=== PATIENT | female | born 1995 | race Caucasian/White ===

== ENCOUNTER → 2017-11-02 | Outpatient (CLI) | payer BC ==
[~2017-11-02] MED LIST: AMOX500T2 PO; LORA10CA PO; NAPR-1070 PO
--- NOTE | 2017-11-02 20:11 | Diagnostic Imaging Report ---
INDICATION: Palpable lump in the right breast. EXAMINATION: Right breast ultrasound. FINDINGS: Sonographic interrogation of the area of palpable abnormality in the right breast was performed. This does correspond to the 7 o'clock location. At this location there is a macrolobulated hypoechoic mass approximately 2 cm from the nipple, measuring 2.5 x 1.5 x 1.9 cm. This is circumscribed. There does appear to be mild posterior acoustic enhancement. There is a mild internal vascularity. 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 No other masses are seen. IMPRESSION: Macrolobulated hypoechoic solid mass at the 7 o'clock location of the right breast, 2 cm from the nipple, corresponding to the area of palpable abnormality. 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 A followup right breast ultrasound in six months is recommended to show continued stability. ACR BI-RADS Category 3: Probably benign findings. Result letter will be mailed to the patient. Note: At least 10% of breast cancer is not imaged by mammography. Dictated by: Dictated on workstation # [id number]
== END ==
LOC: RAD 10:23
PROVIDERS: ATTEND Family Medicine
DX: N63.13 Unspecified lump in the right breast, lower outer quadrant (principal)
CPT/HCPCS: 76641

== ENCOUNTER 2018-05-11 17:28 | Emergency (ER) | payer OTHER, BC ==
[~2018-05-11] VITALS: Ht 157.5 cm; Wt 78.0 kg
--- OUTSIDE RECORDS SUMMARY | 2018-05-11 17:34 | XMS REPORT ---
Author Author FLORESITA BONILLA Organization [facility] Address [address] [place] [address] Care Team Providers Care Drafter Automotive Design Layout Name Role Phone FLORESITA BONILLA Unavailable PROBLEMS Unknown Problems ALLERGIES No Information ENCOUNTERS Encounter Location Date Diagnosis [facility] [id number] [place] [address]016 [address]0635 Jan, [place] [id number] [place] [address] 24449- 0985 December, Weight gain R63.5 [place] [id number] [place] [address] 52245- 7912 Oct, [place] [id number] [place] [address] 48741- 1605 Oct, Lump of right breast N63.10 [place] [id number] [place] [address] 21995- 6997 Sep, [facility] [id number] [place] [address] 09999- 1144 Sep, [place] [id number] [place] [address] 64876- 3264 Sep, Well woman exam with routine gynecological exam Z01.419 ; Lump of right breast N63.10 ; Screening for STD sexually transmitted disease Z11.3 ; Vaginal discharge N89.8 ; Fluid level behind tympanic membrane of both ears H65.93 and control counseling Z30.09 [place] [id number] [place] [address] 67326- 2067 Jul, Weight gain R63.5 [place] [id number] [place] [address] 88189- 4611 Jun, Weight gain R63.5 [facility] [id number] [place] [address] 11332 -2427 Jan, [facility] [address] 399[address] Jan, Encounter for immunization Z23 and Laceration of right hand without foreign body, initial encounter S61.411A [facility] [address] [id number] Apr, Dental examination Z01.20 [facility] [address] [place] [address] 92633 -7808 08 Apr, 2016 Allergic reaction, initial encounter T78.40XA [facility] [address] 9[address]81 [address] December, Other seasonal allergic rhinitis J30.2 [facility] [address] 6[address]21 [address]1319 11 Sep, 2015 Back pain, thoracic M54.6 [place] [address] 49166[address] 8650 May, Sore throat J02.9 [facility] [address] 25114- 3989 14 Nov, 2014 [facility] [address] 47519- 9776 Nov, [facility] [id number] [place] [address] 43074- 2670 Aug, [facility] [address] 25533- 4576 Aug, [facility] [address] 14972- 4073 Oct, [facility] [address] 13918- 0022 Sep, [facility] [address] [facility] [id number] [address] Sep, [facility] [id number] [address] 0988 Jun, [facility] [address] [address] 0394 Jun, [facility] [address] [address] 8537 Jul, [facility] [address] 6[address] Jul, [facility] [address] 2256 Jul, [facility] [address] 2648 Jul, [facility] [id number] 5[address] Jul, [facility] [address], [place] [address]- 4651 Jul, [facility] [id number] [address]- 4564 Nov, [facility] [id number] [address] Aug, IMMUNIZATIONS No Known Immunizations SOCIAL HISTORY Never Assessed REASON FOR VISIT Traige PLAN OF CARE VITAL SIGNS MEDICATIONS Unknown Medications RESULTS No Results PROCEDURES No Known procedures INSTRUCTIONS MEDICATIONS ADMINISTERED No Known Medications MEDICAL (GENERAL) HISTORY Type Description Date Medical History Childhood asthma Medical History anemia Medical History back trouble Surgical History tubes in ears Hospitalization History asthma
--- OUTSIDE RECORDS SUMMARY | 2018-05-11 17:35 | XMS REPORT ---
Author MARIANA Joseph [facility] eClinicalWorks Address Unknown Phone Unavailable Care Team Providers Care Supervisor Forming Department Name Role Phone MARIANA DONOVAN CP Unavailable Allergies, Adverse Reactions, Alerts Substance Reaction Event Type N.K.D.A. Info Not Available Non Drug Allergy Problems Problem Type Condition Code Onset Dates Condition Status Problem Acute upper respiratory infections of unspecified site 465.9 Active Problem Cervicalgia 723.1 Active Problem Essential and other specified forms of tremor 333.1 Active Problem Other malaise and fatigue 780.79 Active Assessment Sore throat J02.9 Active Medications Medication Code System Code Instructions Start Date End Date Status Dosage Amoxicillin [facility] [address]-46 500 MG Orally 3 times a day Jun 23, 2015 Jun 30, 2015 1 tablet Claritin [facility] [address]-38 10 MG Orally Once a day Jun 23, 2015 1 tablet Procedures Procedure Coding System Code Date Office Visit, Est Pt., Level 3 CPT-4 98474 Jun 23, 2015 STREP A ASSAY W/OPTIC CPT-4 90535 Jun 23, 2015 Vital Signs Date/Time: Jun 23, 2015 Temperature 97.9 F BMIPercentile 94.82 % Weight 185.9 lbs Height 65 in Pain Scale 5 1-10 Blood Pressure Diastolic 74 mmHg Blood Pressure Systolic 102 mmHg Cardiac Monitoring Heart Rate 74 bpm Wt Percentile 95.82 % BMI 30.93 Index Results Name Result Date Reference Range Unit Abnormality Flag STREP A (IN HOUSE) Summary Purpose eClinicalWorks Submission
--- OUTSIDE RECORDS SUMMARY | 2018-05-11 17:35 | XMS REPORT ---
Author Author JESSICA MADISON [facility] Address [address] [place] [address] Care Team Providers Care Brass Pourer Name Role Phone JESSICA MADISON Unavailable PROBLEMS Unknown Problems ALLERGIES No Information ENCOUNTERS Encounter Location Date Diagnosis [facility] [id number] [place] [address]21 [address]0978 Jan, [place] [address] 10224- 1417 December, Weight gain R63.5 [place] [address] 18164- 7610 Oct, [place] [address] 92237- 4913 Oct, Lump of right breast N63.10 [place] [address] 23053- 8811 Sep, [place] [id number] [place] [address] 02405- 2475 Sep, [place] [id number] [place] [address] 40415- 9583 Sep, Well woman exam with routine gynecological exam Z01.419 ; Lump of right breast N63.10 ; Screening for STD sexually transmitted disease Z11.3 ; Vaginal discharge N89.8 ; Fluid level behind tympanic membrane of both ears H65.93 and control counseling Z30.09 [place] [id number] [place] [address] 81862- 5945 Jul, Weight gain R63.5 [place] [address] 83870- 6524 Jun, Weight gain R63.5 [facility] [id number] [place] [address] 91062 -2088 Jan, [facility] [address] 55955 -8883 Jan, Encounter for immunization Z23 and Laceration of right hand without foreign body, initial encounter S61.411A [facility] [address] [id number] Apr, Dental examination Z01.20 [facility] [address] [place] [address] 61386 -1121 08 Apr, 2016 Allergic reaction, initial encounter T78.40XA [facility] [address] 36133 -2330 December, Other seasonal allergic rhinitis J30.2 [facility] [address] 49043 -8753 11 Sep, 2015 Back pain, thoracic M54.6 [place] [address] 36296- 6708 May, Sore throat J02.9 [facility] [address] 35959- 0829 14 Nov, 2014 [facility] [address] 47093- 4240 Nov, [facility] [id number] [place] [address] 62026- 4940 Aug, [facility] [address] 00281- 8223 Aug, [facility] [address] 45674- 7675 Oct, [facility] [address] 45019- 4845 Sep, [place] [address], [place] [address]- 9638 Sep, [facility] [address], [place] [address]- 2040 Jun, [facility] [address] [facility] [id number] [address]- 1206 Jun, [facility] [address], [place] [address]- 8658 Jul, [facility] [address] 1640 Jul, [facility] [id number] 0992 Jul, [facility] [address], [place] [address]- 1790 Jul, [facility] [address] 6191 Jul, [facility] [address] 1412 Jul, [facility] [address], [place] [address]- 3973 Nov, [facility] [id number] 8260 Aug, IMMUNIZATIONS No Known Immunizations SOCIAL HISTORY Never Assessed REASON FOR VISIT Rx from lab results PLAN OF CARE VITAL SIGNS MEDICATIONS Medication Instructions Dosage Frequency Start Date End Date Duration Status Metronidazole 500 mg Orally Twice a day 1 tablet 12h 23 Sep, 2017 2 Oct, 2017 07 days Active RESULTS No Results PROCEDURES No Known procedures INSTRUCTIONS MEDICATIONS ADMINISTERED No Known Medications MEDICAL (GENERAL) HISTORY Type Description Date Medical History Childhood asthma Medical History anemia Medical History back trouble Surgical History tubes in ears Hospitalization History asthma
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
--- OUTSIDE RECORDS SUMMARY | 2018-05-11 17:35 | XMS REPORT ---
Author Author JESSICA MADISON [facility] Address [address] [place] [address] Care Team Providers Care Fish Processing Supervisor Name Role Phone JESSICA MADISON Unavailable PROBLEMS Unknown Problems ALLERGIES No Information ENCOUNTERS Encounter Location Date Diagnosis [facility] [id number] [place] [address] 93319 -2396 Jan, [place] [id number] [place] [address] 34676- 9508 December, Weight gain R63.5 [place] [address] 97822- 5526 Oct, [place] [address] 9[address]- 1951 Oct, Lump of right breast N63.10 [place] [address] 57614- 7225 Sep, [facility] [id number] [place] [address] 38681- 1848 Sep, [place] [id number] [place] [address] 36943- 7626 Sep, Well woman exam with routine gynecological exam Z01.419 ; Lump of right breast N63.10 ; Screening for STD sexually transmitted disease Z11.3 ; Vaginal discharge N89.8 ; Fluid level behind tympanic membrane of both ears H65.93 and control counseling Z30.09 [facility] [id number] [place] [address] 41976- 5018 Jul, Weight gain R63.5 [place] [address] 48208- 0851 Jun, Weight gain R63.5 [facility] [id number] [place] [address] 84591 -6856 Jan, [facility] [address] [address] Jan, Encounter for immunization Z23 and Laceration of right hand without foreign body, initial encounter S61.411A [facility] [address] [id number] Apr, Dental examination Z01.20 [facility] [address] [place] [address] 22052 -3870 08 Apr, 2016 Allergic reaction, initial encounter T78.40XA [facility] [address] 33154 -3663 December, Other seasonal allergic rhinitis J30.2 [facility] [address] 39383 -6010 11 Sep, 2015 Back pain, thoracic M54.6 [place] [address] 89748- 5558 May, Sore throat J02.9 [facility] [address] [address]- [address] 14 Nov, 2014 [facility] [address] 03566- 0856 Nov, [facility] [id number] [place] [address] 54574- 5814 Aug, [facility] [address] 81323- 5590 Aug, [facility] [address] 45431- 1111 Oct, [facility] [address] 13394- 6631 Sep, [place] [address] [facility] [id number] [address]- 8[address] Sep, [facility] [address] [address]- 4502 Jun, [facility] [address] [facility] [id number] [address]- 2102 Jun, [facility] [address] [address] Jul, [facility] [address] [facility] [id number] [address]- 3194 Jul, [facility] [address] 28[address] Jul, [facility] [address] 8432 Jul, [facility] [address] [address]- 8076 Jul, [facility] [address], [place] [address]- 4246 Jul, [facility] [address] [address] Nov, [facility] [address] [id number] [address]- 8574 Aug, IMMUNIZATIONS No Known Immunizations SOCIAL HISTORY Never Assessed REASON FOR VISIT PLAN OF CARE VITAL SIGNS MEDICATIONS Medication Instructions Dosage Frequency Start Date End Date Duration Status Diflucan 150 MG Orally Once a day 1 tablet 24h Oct, 1 dose Active RESULTS No Results PROCEDURES No Known procedures INSTRUCTIONS MEDICATIONS ADMINISTERED No Known Medications MEDICAL (GENERAL) HISTORY Type Description Date Medical History Childhood asthma Medical History anemia Medical History back trouble Surgical History tubes in ears Hospitalization History asthma
--- OUTSIDE RECORDS SUMMARY | 2018-05-11 17:35 | XMS REPORT ---
Author MIMI Cheatham [facility] eClinicalWorks Address Unknown Phone Unavailable Care Team Providers Care Hydro Generation Supervisor Name Role Phone MIMI RICKS CP Unavailable Allergies, Adverse Reactions, Alerts Substance Reaction Event Type N.K.D.A. Info Not Available Non Drug Allergy Problems Problem Type Condition Code Onset Dates Condition Status Problem Acute upper respiratory infections of unspecified site 465.9 Active Problem Cervicalgia 723.1 Active Problem Essential and other specified forms of tremor 333.1 Active Problem Other malaise and fatigue 780.79 Active Assessment Back pain, thoracic M54.6 Active Medications Medication Code System Code Instructions Start Date End Date Status Dosage Cyclobenzaprine HCl [facility] [address]-57 10 MG Orally Three times a day prn back pain Oct 08, 2015 1/2-1 tablet Procedures Procedure Coding System Code Date Office Visit, Est Pt., Level 3 CPT-4 05481 Oct 08, 2015 Vital Signs Date/Time: Oct 08, 2015 Temperature 98.1 F Weight 194.6 lbs Height 65 in BMI 32.38 Index Blood Pressure Diastolic 74 mmHg Blood Pressure Systolic 124 mmHg Cardiac Monitoring Heart Rate 60 bpm BMIPercentile 95.81 % Wt Percentile 96.88 % Results No Known Results Summary Purpose eClinicalWorks Submission
--- OUTSIDE RECORDS SUMMARY | 2018-05-11 17:35 | XMS REPORT ---
Author Author FLORESITA BONILLA Organization [facility] Address [address] [place] [address] Care Team Providers Care Insurance Claims Supervisor Name Role Phone FLORESITA BONILLA Unavailable PROBLEMS Unknown Problems ALLERGIES No Known Allergies ENCOUNTERS Encounter Location Date Diagnosis [facility] [id number] [place] [address]60 -0912 Jan, [place] [id number] [place] [address] 55282- 5929 December, Weight gain R63.5 [place] [address] 11028- 9491 Oct, [facility] [id number] [place] [address] 66208- 4113 Oct, Lump of right breast N63.10 [place] [id number] [place] [address] 21403- 2309 Sep, [facility] [id number] [place] [address] 42346- 6248 Sep, [facility] [id number] [place] [address] 30666- 5560 Sep, Well woman exam with routine gynecological exam Z01.419 ; Lump of right breast N63.10 ; Screening for STD sexually transmitted disease Z11.3 ; Vaginal discharge N89.8 ; Fluid level behind tympanic membrane of both ears H65.93 and control counseling Z30.09 [facility] [id number] [place] [address] 71208- 8911 Jul, Weight gain R63.5 [place] [id number] [place] [address] 93869- 3555 Jun, Weight gain R63.5 [facility] [id number] [place] [address] 11410 -5710 Jan, [facility] [id number] [place] [address] 89668 -6988 Jan, Encounter for immunization Z23 and Laceration of right hand without foreign body, initial encounter S61.411A [facility] [address] [id number] Apr, Dental examination Z01.20 [facility] [address] [place] [address] 31732 -9502 08 Apr, 2016 Allergic reaction, initial encounter T78.40XA [facility] [id number] [place] [address] 70193 -1343 December, Other seasonal allergic rhinitis J30.2 [facility] [address] 0[address]2377 11 Sep, 2015 Back pain, thoracic M54.6 [place] [address] 28326- 5588 May, Sore throat J02.9 [facility] [id number] [place] [address] 52779- 0095 14 Nov, 2014 [facility] [id number] [place] [address] 51194- 6645 Nov, [facility] [id number] [place] [address] 63693- 0740 Aug, [facility] [address] 20350- 2371 Aug, [facility] [id number] [place] [address] 99731- 2195 Oct, [facility] [address] 55523- 8017 Sep, [facility] [id number], [place] [address]- 6948 Sep, [facility] [id number] 6056 Jun, [facility] [address] 4[address] Jun, [facility] [address], [place] [address]- 1053 Jul, [facility] [address] 2815 Jul, [facility] [address], [place] [address]- 3259 Jul, [facility] [address], [place] [address]- 5617 Jul, [facility] [address], [place] [address]- 7965 Jul, [facility] [address], [place] [address]- 8520 Jul, [facility] [id number], [place] [address]- 6026 Nov, [facility] [id number], [place] [address]- 5831 Aug, IMMUNIZATIONS No Known Immunizations SOCIAL HISTORY Never Assessed REASON FOR VISIT Weight management -[place] PLAN OF CARE Activity Details Follow Up 6 Months Reason:weight mgmt VITAL SIGNS Height 65 in 2018-01-03 Weight 163 lbs 2018-01-03 Temperature 97.5 degrees Fahrenheit 2018-01-03 Heart Rate 76 bpm 2018-01-03 Respiratory Rate 18 2018-01-03 BMI 27.12 kg/m2 2018-01-03 Blood pressure systolic 112 mmHg 2018-01-03 Blood pressure diastolic 76 mmHg 2018-01-03 MEDICATIONS Medication Instructions Dosage Frequency Start Date End Date Duration Status Contrave 8-90 MG Orally Twice a day 2 tablets 12h Active Ibuprofen 200 mg take 2 tablets by Oral route 2 times per day with food Aug, Not-Taking Ortho Tri-Cyclen (28) 0.18/0.215/0.25 MG-35 MCG Orally Once a day 1 tablet 24h Sep, 28 day(s) Active Diflucan 150 MG Orally Once a day 1 tablet 24h Oct, 1 dose Not -Taking RESULTS No Results PROCEDURES No Known procedures INSTRUCTIONS MEDICATIONS ADMINISTERED No Known Medications MEDICAL (GENERAL) HISTORY Type Description Date Medical History Childhood asthma Medical History anemia Medical History back trouble Surgical History tubes in ears Hospitalization History asthma
--- OUTSIDE RECORDS SUMMARY | 2018-05-11 17:35 | XMS REPORT ---
Author EVE Chan [facility] eClinicalWorks Address Unknown Phone Unavailable Care Team Providers Care Petroleum Sampler Name Role Phone EVE LYONS CP Unavailable Allergies, Adverse Reactions, Alerts Substance Reaction Event Type N.K.D.A. Info Not Available Non Drug Allergy Problems Problem Type Condition Code Onset Dates Condition Status Problem Acute upper respiratory infections of unspecified site 465.9 Active Problem Cervicalgia 723.1 Active Problem Essential and other specified forms of tremor 333.1 Active Problem Other malaise and fatigue 780.79 Active Assessment Dental examination Z01.20 Active Medications No Known Medications Procedures Procedure Coding System Code Date BITEWINGS - FOUR FILMS CPT-4 D0274 May 26, 2016 PANORAMIC FILM SEE ALSO CODE 92855 CPT-4 D0330 May 26, 2016 COMP ORAL EVALUATION - NEW/EST PT CPT-4 D0150 May 26, 2016 Vital Signs Date/Time: May 26, 2016 Blood Pressure Diastolic 82 mmHg Blood Pressure Systolic 137 mmHg Height 65 in Results No Known Results Summary Purpose eClinicalWorks Submission
--- OUTSIDE RECORDS SUMMARY | 2018-05-11 17:35 | XMS REPORT ---
Author Author FLORESITA BONILLA Organization [facility] Address [address] [place] [address] Care Team Providers Care Hand Folder Name Role Phone FLORESITA BONILLA Unavailable PROBLEMS Unknown Problems ALLERGIES No Information ENCOUNTERS Encounter Location Date Diagnosis [facility] [id number] [place] [address] 05024 -8117 Jan, [place] [id number] [place] [address] 24300- 0825 December, Weight gain R63.5 [place] [id number] [place] [address] 56541- 0787 Oct, [place] [id number] [place] [address] 17517- 2860 Oct, Lump of right breast N63.10 [place] [id number] [place] [address] 38927- 3674 Sep, [facility] [id number] [place] [address] 65628- 6426 Sep, [place] [id number] [place] [address] 61883- 1102 Sep, Well woman exam with routine gynecological exam Z01.419 ; Lump of right breast N63.10 ; Screening for STD sexually transmitted disease Z11.3 ; Vaginal discharge N89.8 ; Fluid level behind tympanic membrane of both ears H65.93 and control counseling Z30.09 [place] [id number] [place] [address] 84070- 6697 Jul, Weight gain R63.5 [place] [id number] [place] [address] 16280- 0087 Jun, Weight gain R63.[address] [facility] [id number] [place] [address] 09051 -6240 Jan, [facility] [address] 53369 -3851 Jan, Encounter for immunization Z23 and Laceration of right hand without foreign body, initial encounter S61.411A [facility] [address] [id number] Apr, Dental examination Z01.20 [facility] [address] [place] [address] 70550 -2384 08 Apr, 2016 Allergic reaction, initial encounter T78.40XA [facility] [address] 31989 -8155 December, Other seasonal allergic rhinitis J30.2 [facility] [address] 43894 -8050 11 Sep, 2015 Back pain, thoracic M54.6 [place] [address] 15031- 4203 May, Sore throat J02.9 [facility] [address] 20892- 0259 14 Nov, 2014 [facility] [address] 95158- 2269 Nov, [facility] [id number] [place] [address] 08417- 3531 Aug, [facility] [address] 26000- 4560 Aug, [facility] [address] 91621- 0171 Oct, [facility] [address] 25066- 5680 Sep, [facility] [address] [facility] [id number] [address] 1191 Sep, [facility] [address], [place] [address]- 4768 Jun, [facility] [address] [facility] [id number], [place] [address]- 8[address] Jun, [facility] [address] [address]- 0084 Jul, [facility] [address]- 8198 Jul, [facility] [address] 1714 Jul, [facility] [address] 7943 Jul, [facility] [address] 9409 Jul, [facility] [address], [place] [address]- 0905 Jul, [facility] [id number], [place] [address]- 6037 Nov, [facility] [id number] 6097 Aug, IMMUNIZATIONS No Known Immunizations SOCIAL HISTORY Never Assessed REASON FOR VISIT Refill request PLAN OF CARE VITAL SIGNS MEDICATIONS Unknown Medications RESULTS No Results PROCEDURES No Known procedures INSTRUCTIONS MEDICATIONS ADMINISTERED No Known Medications MEDICAL (GENERAL) HISTORY Type Description Date Medical History Childhood asthma Medical History anemia Medical History back trouble Surgical History tubes in ears Hospitalization History asthma
--- OUTSIDE RECORDS SUMMARY | 2018-05-11 17:35 | XMS REPORT ---
Author Author JESSICA MADISON [facility] Address [address] [place] [address] Care Team Providers Care Fuel Cell Systems Engineer Name Role Phone JESSICA MADISON Unavailable PROBLEMS Unknown Problems ALLERGIES No Information ENCOUNTERS Encounter Location Date Diagnosis [facility] [id number] [place] [address] 05177 -3532 Jan, [place] [address] 14785- 8754 December, Weight gain R63.5 [place] [address] 68510- 1788 Oct, [place] [address] 11789- 1845 Oct, Lump of right breast N63.10 [place] [address] 33414- 8463 Sep, [place] [id number] [place] [address] 05722- 6881 Sep, [place] [id number] [place] [address] 19665- 4530 Sep, Well woman exam with routine gynecological exam Z01.419 ; Lump of right breast N63.10 ; Screening for STD sexually transmitted disease Z11.3 ; Vaginal discharge N89.8 ; Fluid level behind tympanic membrane of both ears H65.93 and control counseling Z30.09 [place] [id number] [place] [address] 97520- 4143 Jul, Weight gain R63.5 [place] [address] 53038- 5837 Jun, Weight gain R63.5 [facility] [id number] [place] [address] 08343 -1895 Jan, [facility] [address] 01673 -3996 Jan, Encounter for immunization Z23 and Laceration of right hand without foreign body, initial encounter S61.411A [facility] [address] [id number] Apr, Dental examination Z01.20 [facility] [address] [place] [address] 73538 -0690 08 Apr, 2016 Allergic reaction, initial encounter T78.40XA [facility] [address] 13473 -1260 December, Other seasonal allergic rhinitis J30.2 [facility] [place] [address] 78729 -9488 11 Sep, 2015 Back pain, thoracic M54.6 [place] [address] 42969- 4437 May, Sore throat J02.9 [facility] [address] 21145- 1409 14 Nov, 2014 [facility] [address] 87412- 7111 Nov, [facility] [id number] [place] [address] 60892- 5524 Aug, [facility] [address] 10317- 9830 Aug, [facility] [address] 36374- 3759 Oct, [facility] [address] 43573- 6680 Sep, [place] [address], [place] [address]- 7784 Sep, [facility] [address]- 1857 Jun, [facility] [address], [place] [address]- 2547 Jun, [facility] [address], [place] [address]- 4900 Jul, [facility] [address], [place] [address]- 4642 Jul, [facility] [address], [place] [address]- 8448 Jul, [facility] [address]- 3421 Jul, [facility] [address], [place] [address]- 2745 Jul, [facility] [address], [place] [address]- 0222 Jul, [facility] [address], [place] [address]- 4460 Nov, [facility] [id number], [place] [address]- 9083 Aug, IMMUNIZATIONS No Known Immunizations SOCIAL HISTORY Never Assessed REASON FOR VISIT [facility] PLAN OF CARE VITAL SIGNS MEDICATIONS Unknown Medications RESULTS No Results PROCEDURES No Known procedures INSTRUCTIONS MEDICATIONS ADMINISTERED No Known Medications MEDICAL (GENERAL) HISTORY Type Description Date Medical History Childhood asthma Medical History anemia Medical History back trouble Surgical History tubes in ears Hospitalization History asthma
--- OUTSIDE RECORDS SUMMARY | 2018-05-11 17:35 | XMS REPORT ---
Author Author CHUCKY JAIMES Organization [facility] WALK IN [facility] Address [address] [place] [address] Care Team Providers Care Spring Fitter Helper Name Role Phone CHUCKY JAIMES Unavailable PROBLEMS Type Condition ICD9-CM Code BBB54-FV Code Onset Dates Condition Status SNOMED Code Problem Essential and other specified forms of tremor 333.1 Active 323202919 Problem Acute upper respiratory infections of unspecified site 465.9 Active 50418745 Assessment Allergic reaction, initial encounter T78.40XA Apr, Active 458824194 Problem Cervicalgia 723.1 Active 23130293 Problem Other malaise and fatigue 780.79 Active 504981805 ALLERGIES Substance Reaction Event Type Date Status N.K.D.A. Unknown Non Drug Allergy Apr, Unknown SOCIAL HISTORY No smoking Hx information available PLAN OF CARE VITAL SIGNS Height 65 in 2016-05-05 Weight 182.2 lbs 2016-05-05 Heart Rate 64 bpm 2016-05-05 Respiratory Rate 20 2016-05-05 BMI 30.32 kg/m2 2016-05-05 Blood pressure systolic 114 mmHg 2016-05-05 Blood pressure diastolic 74 mmHg 2016-05-05 MEDICATIONS No Known Medications RESULTS No Results PROCEDURES Procedure Date Ordered Related Diagnosis Body Site Office Visit, Est Pt., Level 3 May 05, 2016 SOLUMEDROL (UP TO 125 MG) May 05, 2016 THER/PROPH/DIAG INJ, SC/IM May 05, 2016 IMMUNIZATIONS Vaccine Route Administration Date Status SOLUMEDROL (UP TO 125 MG) IM Intramuscular May 05, 2016 Administered
--- OUTSIDE RECORDS SUMMARY | 2018-05-11 17:35 | XMS REPORT ---
Author Author JESSICA MADISON [facility] Address [address] [place] [address] Care Team Providers Care Plastics Design Engineer Name Role Phone JESSICA MADISON Unavailable PROBLEMS Unknown Problems ALLERGIES No Known Allergies ENCOUNTERS Encounter Location Date Diagnosis [facility] [id number] [place] [address] 30949 -0929 Jan, [place] [id number] [place] [address] 62527- 4125 December, Weight gain R63.5 [place] [address] 70273- 0748 Oct, [place] [id number] [place] [address] 39786- 8744 Oct, Lump of right breast N63.10 [place] [id number] [place] [address] 06032- 8925 Sep, [facility] [id number] [place] [address] 30126- 5948 Sep, [place] [address] [place] [address] 60457- 2346 Sep, Well woman exam with routine gynecological exam Z01.419 ; Lump of right breast N63.10 ; Screening for STD sexually transmitted disease Z11.3 ; Vaginal discharge N89.8 ; Fluid level behind tympanic membrane of both ears H65.93 and control counseling Z30.09 [place] [id number] [place] [address] 48946- 1341 Jul, Weight gain R63.5 [place] [id number] [place] [address] 04844- 9374 Jun, Weight gain R63.5 [facility] [id number] [place] [address] 25603 -0797 Jan, [facility] [address] 01264 -0446 Jan, Encounter for immunization Z23 and Laceration of right hand without foreign body, initial encounter S61.411A [facility] [address] [id number] Apr, Dental examination Z01.20 [facility] [address] [place] [address] 35182 -1848 08 Apr, 2016 Allergic reaction, initial encounter T78.40XA [facility] [address] 10827 -0412 December, Other seasonal allergic rhinitis J30.2 [facility] [address] 18898 -2427 11 Sep, 2015 Back pain, thoracic M54.6 [place] [address] 72181- 0361 May, Sore throat J02.9 [facility] [address] 62[address]- 1336 14 Nov, 2014 [facility] [address] 97459- 7885 Nov, [facility] [address] 45697- 3655 Aug, [facility] [address] 55570- 8474 Aug, [facility] [address] 42025- 4922 Oct, [facility] [address] 42665- 6740 Sep, [facility] [address], [place] [address]- 9555 Sep, [facility] [address], [place] [address]- 8435 Jun, [facility] [address] 1523 Jun, [facility] [address] [id number] [address]- 2154 Jul, [facility] [address], [place] [address]- 4885 Jul, [facility] [address], [place] [address]- 4795 Jul, [facility] [address], [place] [address]- 2096 Jul, [facility] [address], [place] [address]- 5352 Jul, [facility] [address], [place] [address]- 8225 Jul, [facility] [address], [place] [address]- 6836 Nov, [facility] [address], [place] [address]- 0978 Aug, IMMUNIZATIONS No Known Immunizations SOCIAL HISTORY Never Assessed REASON FOR VISIT Annual physical (female) -- elias burkett, patient states she would like to start BC today (pills) PLAN OF CARE Activity Details Follow Up 1 Year Reason:Well woman Pending Test PAP REFLEX TO HPV IF ASCUS VITAL SIGNS Height 65 in 2017-10-20 Weight 169.0 lbs 2017-10-20 Temperature 98.0 degrees Fahrenheit 2017-10-20 Heart Rate 70 bpm 2017-10-20 Respiratory Rate 18 2017-10-20 BMI 28.12 kg/m2 2017-10-20 Blood pressure systolic 110 mmHg 2017-10-20 Blood pressure diastolic 68 mmHg 2017-10-20 MEDICATIONS Medication Instructions Dosage Frequency Start Date End Date Duration Status Ibuprofen 200 mg take 2 tablets by Oral route 2 times per day with food Aug, Not-Taking Ortho Tri-Cyclen (28) 0.18/0.215/0.25 MG-35 MCG Orally Once a day 1 tablet 24h 23 Sep, 2017 28 day(s) Active Contrave 8-90 MG Orally Twice a day 2 tablets 12h Nov, 30 days Active RESULTS No Results PROCEDURES Procedure Date Ordered Result Body Site No Charge Oct 20, 2017 TRICHOMONAS ASSAY W/OPTIC Oct 20, 2017 URINE TEST Oct 20, 2017 VENIPUNCT, ROUTINE* Oct 20, 2017 Bacterial Vaginosis In House Oct 20, 2017 CULTURE, BACTERIA, OTHER Oct 20, 2017 SPECIMEN HANDLING Oct 20, 2017 INSTRUCTIONS MEDICATIONS ADMINISTERED No Known Medications MEDICAL (GENERAL) HISTORY Type Description Date Medical History Childhood asthma Medical History anemia Medical History back trouble Surgical History tubes in ears Hospitalization History asthma
--- OUTSIDE RECORDS SUMMARY | 2018-05-11 17:36 | XMS REPORT ---
Author Author FLORESITA BONILLA Organization [facility] Address [address] [place] [address] Care Team Providers Care Tv Technician Name Role Phone FLORESITA BONILLA Unavailable PROBLEMS Unknown Problems ALLERGIES No Known Allergies ENCOUNTERS Encounter Location Date Diagnosis [place] [id number] [place] [address]191[address] 9263 December, Weight gain R63.5 [place] [id number] [place] [address] 23238- 2221 Oct, [place] [address] [address]90 Oct, Lump of right breast N63.10 [place] [id number] [place] [address] 76296- 1867 Sep, [place] [address] [place] [address] 22238- 2386 Sep, [place] [id number] [place] [address] 82127- 9636 Sep, Well woman exam with routine gynecological exam Z01.419 ; Lump of right breast N63.10 ; Screening for STD sexually transmitted disease Z11.3 ; Vaginal discharge N89.8 ; Fluid level behind tympanic membrane of both ears H65.93 and control counseling Z30.09 [place] [id number] [place] [address] 53564- 5639 Jul, Weight gain R63.5 [place] [id number] [place] [address] 02341- 8724 15 Jun, 2017 Weight gain R63.5 [facility] [address] [place] [address] Jan, [facility] [id number] [place] [address]36 [address]3984 Jan, Encounter for immunization Z23 and Laceration of right hand without foreign body, initial encounter S61.411A [facility] [address] [id number] 29 Apr, 2016 Dental examination Z01.20 [facility] [address] [address] 08 Apr, 2016 Allergic reaction, initial encounter T78.40XA [facility] [address] [address] December, Other seasonal allergic rhinitis J30.2 [facility] [address] [address] 11 Sep, 2015 Back pain, thoracic M54.6 [facility] [address] 532[address]- [address] May, Sore throat J02.9 [facility] [address] 37868- 0312 Nov, [facility] [id number] [place] [address] 81430- 9484 Nov, [facility] [id number] [place] [address] 79456- 1075 Aug, [facility] [id number] [place] [address] 31340- 1733 Aug, [facility] [address] 75094- 5927 Oct, [facility] [id number] [place] [address] 79550- 4531 Sep, [facility] [address] 44608- 3781 Sep, [facility] [id number] [address] Jun, [facility] [id number] Jun, [facility] [id number] Jul, [facility] [address] Jul, [facility] [address] [address] Jul, [facility] [address] 9[address] Jul, [facility] [address] 6036 Jul, [facility] [address] 8[address] Jul, [facility] [address] [place] [address] 79[address] Nov, [facility] [id number] Aug, IMMUNIZATIONS No Known Immunizations SOCIAL HISTORY Never Assessed REASON FOR VISIT Weight management----Breanne PLAN OF CARE Activity Details Follow Up 3 Months Reason:weight mgmt VITAL SIGNS Height 65 in 2017-08-14 Weight 176 lbs 2017-08-14 Temperature 97.8 degrees Fahrenheit 2017-08-14 Heart Rate 60 bpm 2017-08-14 Respiratory Rate 20 2017-08-14 BMI 29.28 kg/m2 2017-08-14 Blood pressure systolic 120 mmHg 2017-08-14 Blood pressure diastolic 70 mmHg 2017-08-14 MEDICATIONS Medication Instructions Dosage Frequency Start Date End Date Duration Status Ibuprofen 200 mg take 2 tablets by Oral route 2 times per day with food Aug, Not-Taking Contrave 8-90 MG Orally Twice a day 2 tablets 12h Nov, 30 days Active RESULTS No Results PROCEDURES No Known procedures INSTRUCTIONS MEDICATIONS ADMINISTERED No Known Medications MEDICAL (GENERAL) HISTORY Type Description Date Medical History Childhood asthma Medical History anemia Medical History back trouble Surgical History tubes in ears Hospitalization History asthma
--- OUTSIDE RECORDS SUMMARY | 2018-05-11 17:36 | XMS REPORT ---
Author Author FLORESITA BONILLA Organization [facility] Address [address] [place] [address] Care Team Providers Care Roustabout Crew Leader Name Role Phone FLORESITA BONILLA Unavailable PROBLEMS Unknown Problems ALLERGIES No Known Allergies ENCOUNTERS Encounter Location Date Diagnosis [place] [id number] [place] [address] 62661- 8866 December, Weight gain R63.5 [place] [id number] [place] [address] 48151- 3016 Oct, [place] [address] 59829- 7212 Oct, Lump of right breast N63.10 [place] [id number] [place] [address] 83969- 8084 Sep, [place] [id number] [place] [address] 58369- 0573 Sep, [place] [id number] [place] [address] 15392- 4018 Sep, Well woman exam with routine gynecological exam Z01.419 ; Lump of right breast N63.10 ; Screening for STD sexually transmitted disease Z11.3 ; Vaginal discharge N89.8 ; Fluid level behind tympanic membrane of both ears H65.93 and control counseling Z30.09 [place] [id number] [place] [address] 68702- 2030 Jul, Weight gain R63.5 [place] [id number] [place] [address] 17988- 1532 15 Jun, 2017 Weight gain R63.5 [facility] [address] [place] [address] Jan, [facility] [id number] [place] [address] 23176 -3592 Jan, Encounter for immunization Z23 and Laceration of right hand without foreign body, initial encounter S61.411A [facility] [address] [id number] 29 Apr, 2016 Dental examination Z01.20 [facility] [address] 280[address] 08 Apr, 2016 Allergic reaction, initial encounter T78.40XA [facility] [address] [address] December, Other seasonal allergic rhinitis J30.2 [facility] [address] 632[address] 11 Sep, 2015 Back pain, thoracic M54.6 [facility] [address] 36234- 9790 May, Sore throat J02.9 [facility] [address] 13984- 5190 Nov, [facility] [id number] [place] [address] 25288- 2752 Nov, [facility] [id number] [place] [address] 73317- 7215 Aug, [facility] [id number] [place] [address] 06137- 5170 Aug, [facility] [address] 39300- 9921 Oct, [facility] [id number] [place] [address] 06772- 5865 Sep, [facility] [address] 22531- 2828 Sep, [facility] [id number], [place] [address]- 1326 Jun, [facility] [address], [place] [address]- 3[address] Jun, [facility] [address], [place] [address]- 6701 Jul, [facility] [address], [place] [address]- 2007 Jul, [facility] [address], [place] [address]- 8117 Jul, [facility] [address], [place] [address]- 5899 Jul, [facility] [address] [place] [address] 40062- 2456 Jul, [facility] [address] [place] [address] 69360- 3410 Jul, [facility] [address], [place] [address]- [address] Nov, [facility] [id number], [place] [address] Aug, IMMUNIZATIONS No Known Immunizations SOCIAL HISTORY Never Assessed REASON FOR VISIT Weight management, PT says she was 143 all through high school then got on the depo shot and goained all this. PT has stopped the depo and still has not lost any weight along with changing her diet-Tata COLE PLAN OF CARE Activity Details Follow Up 4 Weeks Reason:wt mgmt VITAL SIGNS Height 65 in 2017-07-12 Weight 186.5 lbs 2017-07-12 Temperature 98.4 degrees Fahrenheit 2017-07-12 Heart Rate 62 bpm 2017-07-12 Respiratory Rate 18 2017-07-12 BMI 31.03 kg/m2 2017-07-12 Blood pressure systolic 108 mmHg 2017-07-12 Blood pressure diastolic 70 mmHg 2017-07-12 MEDICATIONS Medication Instructions Dosage Frequency Start Date End Date Duration Status Contrave 8-90 MG Orally Twice a day 1 tablet at hs X 7 days, 1 tab bid X 7 days, 1 in AM and 2 in PM X 7 days, 2 bid 12h 30 day(s) Active Ibuprofen 200 mg take 2 tablets by Oral route 2 times per day with food Aug, Not-Taking RESULTS No Results PROCEDURES No Known procedures INSTRUCTIONS MEDICATIONS ADMINISTERED No Known Medications MEDICAL (GENERAL) HISTORY Type Description Date Medical History Childhood asthma Medical History anemia Medical History back trouble Surgical History tubes in ears Hospitalization History asthma
--- OUTSIDE RECORDS SUMMARY | 2018-05-11 17:36 | XMS REPORT ---
Author Author FLORESITA BONILLA Organization [facility] Address [address] [place] [address] Care Team Providers Care Firer Portable Boiler Name Role Phone FLORESITA BONILLA Unavailable PROBLEMS Unknown Problems ALLERGIES No Information ENCOUNTERS Encounter Location Date Diagnosis [place] [id number] [place] [address] 40335- 6936 December, [place] [id number] [place] [address] 51880- 3732 Oct, [place] [id number] [place] [address] 52596- 3001 Oct, Lump of right breast N63.10 [place] [id number] [place] [address] 49032- 8448 Sep, [place] [id number] [place] [address] 14192- 9098 Sep, [place] [id number] [place] [address] 06073- 0264 Sep, Well woman exam with routine gynecological exam Z01.419 ; Lump of right breast N63.10 ; Screening for STD (sexually transmitted disease) Z11.3 ; Vaginal discharge N89.8 ; Fluid level behind tympanic membrane of both ears H65.93 and control counseling Z30.09 [place] [id number] [place] [address] 54117- 8967 Jul, Weight gain R63.5 [place] [id number] [place] [address] 52640- 0667 15 Jun, 2017 Weight gain R63.5 [facility] [id number] [place] [address] 54855 -6350 Jan, [facility] [address] [place] [address] 93122 -6257 Jan, Encounter for immunization Z23 and Laceration of right hand without foreign body, initial encounter S61.411A [facility] [address] [place] [id number] 29 Apr, 2016 Dental examination Z01.20 [facility] [address] [address] 08 Apr, 2016 Allergic reaction, initial encounter T78.40XA [facility] [address] [address] December, Other seasonal allergic rhinitis J30.2 [facility] [address] 41598 [address] 11 Sep, 2015 Back pain, thoracic M54.6 [facility] [id number] [place] [address] 63347- 5469 May, Sore throat J02.9 [facility] [address] 73434- 1177 Nov, [facility] [address] [id number] [place] [address] 36237- 4875 Nov, [facility] [id number] [place] [address] 13510- 7162 Aug, [facility] [id number] [place] [address] 63976- 3674 Aug, [facility] [address] 10799- 0434 Oct, [facility] [address] 64128- 7751 Sep, [facility] [id number] [place] [address] 28966- 7847 Sep, [facility] [id number], [place] [address]- 1806 Jun, [facility] [id number] 8769 Jun, [facility] [address], [place] [address]- 2746 Jul, [facility] [address] 9[address] Jul, [facility] [address], [place] [address]- 5190 Jul, [facility] [place] [address] [address] Jul, [facility] [place] [address], [place] [address]- 0997 Jul, [facility] [place] [address], [place] [address]- 7630 Jul, [facility] [place] [id number], [place] [address]- 0123 Nov, [facility] [id number], [place] [address]- 4060 Aug, IMMUNIZATIONS No Known Immunizations SOCIAL HISTORY Never Assessed REASON FOR VISIT Suture removal JStrasserRN PLAN OF CARE VITAL SIGNS MEDICATIONS Unknown Medications RESULTS No Results PROCEDURES No Known procedures INSTRUCTIONS MEDICATIONS ADMINISTERED No Known Medications MEDICAL (GENERAL) HISTORY Type Description Date Medical History Childhood asthma Medical History anemia Medical History back trouble Surgical History tubes in ears Hospitalization History asthma
--- OUTSIDE RECORDS SUMMARY | 2018-05-11 17:37 | XMS REPORT | Continuity of Care Document ---
Author Author [facility] Address Unknown Phone Unavailable Allergies Active Description Code Type Severity Reaction Onset Reported/Identified Relationship to Patient Clinical Status Yes No Known Drug Allergies [id number] Drug Allergy Unknown N/A 05/06/2016 Medications There is no data. Problems Date Dx Coded Attending Type Code Diagnosis Diagnosed By 05/21/2010 FLORESITA BONILLA APRN 462 PHARYNGITIS ACUTE 05/21/2010 DOV BALDERAS MD 462 PHARYNGITIS ACUTE 05/21/2010 DOV BALDERAS MD 462 PHARYNGITIS ACUTE BACTERIAL 12/17/2011 FLORESITA BONILLA APRN 465.9 UPPER RESPIRATORY INFECTION 12/17/2011 DOV BALDERAS MD 465.9 UPPER RESPIRATORY INFECTION 12/17/2011 DOV BALDERAS MD 465.9 UPPER RESPIRATORY INFECTION 08/07/2012 FLORESITA BONILLA APRN 333.1 TREMOR, BENIGN ESSENTIAL 08/07/2012 DOV BALDERAS MD 333.1 TREMOR, BENIGN ESSENTIAL 08/07/2012 DOV BALDERAS MD 333.1 TREMOR, BENIGN ESSENTIAL 10/25/2013 DVO BALDERAS MD 780.79 FATIGUE 05/06/2016 EDY JAMES MD Ot K08.9 DISORDER OF TEETH AND SUPPORTING STRUCTU 05/09/2016 EDY JAMES MD Ot K08.9 DISORDER OF TEETH AND SUPPORTING STRUCTU 11/15/2017 JESSICA MADISON MD Ot N63.13 UNSPECIFIED LUMP IN THE RIGHT BREAST, LO 12/26/2017 JESSICA MADISON MD Ot N63.13 UNSPECIFIED LUMP IN THE RIGHT BREAST, LO 02/06/2018 JESSICA MADISON MD Ot N63.13 UNSPECIFIED LUMP IN THE RIGHT BREAST, LO 05/10/2018 JESSCIA MADISON MD Ot N63.13 UNSPECIFIED LUMP IN THE RIGHT BREAST, LO 05/11/2018 GRICELDA MESSER, JESSICA Bar Ot N63.13 UNSPECIFIED LUMP IN THE RIGHT BREAST, LO Procedures Code [place] [address] ROUTINE VENIPUNCTURE 08/10/2012 88172 A1C (IN-HOUSE) 08/10/2012 82137 CBC 08/10/2012 54352 INSULIN LEVEL 08/11/2012 95983 STREP A (IN-HOUSE) 07/05/2013 41119 MONO TEST (IN-HOUSE) 10/25/2013 18816 TSH 10/25/2013 52159 CBC 10/25/2013 00695 CMP 10/25/2013 Results Test Result Range Drug Screen + ETOH - 08/01/16 11:23 Neurology Teacher Nhi Millsdannielle Donor ID By Employer Representitive Ethanol, Urine <10.00 mg/dL 20.00-80.00 Location [facility] Reason For Test Random Temperature In Range YES Deg F 90.00-100.00 Urine Amphetamines NEGATIVE Urine Barbiturates NEGATIVE Urine Benzodiazepines NEGATIVE Urine Cocaine NEGATIVE Urine MDMA NEGATIVE Urine Methadone NEGATIVE Urine Methamphetamines NEGATIVE Urine Opiates NEGATIVE Urine Oxycodone NEGATIVE Urine PCP NEGATIVE Urine THC Metabolite NEGATIVE CULTURE, GENITAL - 10/20/17 11:57 CULTURE, GENITAL SEE NOTE NRG SUREPATH PAP RFX HPV mRNA E6/E7 - 10/20/17 11:57 CLINICAL INFORMATION: NRG LMP: [id number] NRG PREV. PAP: NL NRG PREV. BX: NONE NRG SOURCE: Cervix NRG STATEMENT OF ADEQUACY: NRG INTERPRETATION/RESULT: NRG PROPERTIES SUPERVISOR: NRG REVIEW PROPERTIES SUPERVISOR: NRG INFECTION: NRG Encounters ACCT No. Visit Date/Time Discharge Status Pt. Type Provider Facility Loc./Unit Complaint [id number] 10/25/2013 08:46:00 10/25/2013 23:59:59 CLS Outpatient DOV BALDERSA MD [id number] 07/05/2013 13:34:00 07/05/2013 23:59:59 CLS Outpatient DOV BALDERAS MD [id number] 08/10/2012 08:14:00 08/10/2012 23:59:59 CLS Outpatient FLORESITA BONILLA APRN [id number] 11/02/2017 10:23:00 11/02/2017 23:59:59 CLS Outpatient JESSICA MADISON MD [facility] RAD LUMP OF RT BREAST [id number] 05/06/2016 22:24:00 05/06/2016 23:03:00 DIS Emergency ERIKA MESSER, EDY [place] [facility] ER R TOOTH PAIN [id number] 03/23/2013 13:00:00 03/23/2013 23:59:59 CLS Outpatient [id number] 05/11/2018 17:30:00 ACT Emergency SOCRATES MESSER, L[address] [facility] ER HEAD,SHOULDER,BACK PAIN WC [id number] 05/09/2018 08:49:00 PEN Preadmit JESSICA MADISON MD [facility] RAD LUMP OF RIGHT BREAST [id number] 09/21/2017 16:23:00 09/21/2017 23:59:00 DIS Outpatient TAVO NELSON [id number] 08/24/2017 09:16:00 08/24/2017 23:59:00 DIS Outpatient TAVO NELSON [id number] 07/24/2017 13:30:00 07/24/2017 23:59:00 DIS Outpatient TAVO NELSON [id number] 08/01/2016 11:11:00 08/01/2016 23:59:00 DIS Outpatient UNLISTEDWHITNEY [id number] 02/11/2018 13:45:00 02/11/2018 23:59:59 CLS Outpatient FLORESITA BONILLA APRN [facility] [id number] 10/20/2017 11:00:00 Document Registration
--- NOTE | 2018-05-11 18:58 | ED Upper Extremity ---
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 Nursing Sepsis Screen: No Definite Risk Source: patient Exam Limitations: no limitations History of Present Illness Date Seen by Provider: May 11, 2018 Time Seen by Provider: 18:32 Initial Comments Patient is a 23-year-old female who presents to the emergency room with complaints of left shoulder pain. She reports that she was putting equipment up on a shelf at [employer] today and when she did a walker fell back off the shelf and hit her in the left shoulder at 1100. She went to her primary care provider for evaluation and she was instructed to use Tylenol and ibuprofen for pain. She was sent over for occupational health evaluation. Onset: this morning Pain/Injury Location: left shoulder Method of Injury: direct blow Modifying Factors: Improves With Movement Allergies and Home Medications Allergies Coded Allergies: No Known Drug Allergies (Unverified , 05/06/16) Home Medications No Active Prescriptions or Reported Meds Patient Home Medication List Home Medication List Reviewed: Yes Review of Systems Constitutional: see HPI; No chills, No fever Musculoskeletal: see HPI, joint pain (left shoulder) All Other Systems Reviewed Negative Unless Noted: Yes Past Chpbgyf-Iaxwoz-Nivkhj Hx Past Med/Social Hx: Reviewed Nursing Past Med/Soc Hx Patient Social History Alcohol Use: Denies Use Recreational Drug Use: No Smoking Status: Never a Smoker Recent Foreign Travel: No Contact w/Someone Who Travel: No Recent Infectious Disease Expo: No Recent Hopitalizations: No Seasonal Allergies Seasonal Allergies: No Past Medical History Surgeries: No Respiratory: No Cardiac: No Neurological: No Reproductive Disorders: No Sexually Transmitted Disease: No Gastrointestinal: No Musculoskeletal: No Endocrine: No Cancer: No Psychosocial: No Integumentary: No Blood Disorders: No Family Medical History Reviewed Nursing Family Hx Physical Exam Vital Signs Vital Signs - First Documented 05/11/18 18:26 Temp 98.1 Pulse 75 Resp 18 B/P (MAP) 124/83 (97) Pulse Ox 98 O2 Delivery Room Air Capillary Refill : Less Than 3 Seconds Height, Weight, BMI Height: 5'2.00" Weight: 172lbs. oz. 78.550937gv; BMI Method:Stated General Appearance: WD/WN, no apparent distress Cardiovascular: normal peripheral pulses, regular rate, rhythm, no edema, no gallop, no JVD, no murmur Respiratory: chest non-tender, lungs clear, normal breath sounds, no respiratory distress, no accessory muscle use Shoulder: normal inspection, no evidence of injury; No bone tenderness, No ecchymosis; pain, soft tissue tenderness Neurologic/Psychiatric: no motor/sensory deficits, alert, normal mood/affect, oriented x 3 Skin: normal color, warm/dry Progress/Results/Core Measures Results/Orders My Orders Orders - KONSTANTIN PULIDO Shoulder, Left, 3 Views (05/11/18 18:31) Vital Signs/I&O 05/11/18 05/11/18 18:26 19:21 Temp 98.1 98.1 Pulse 75 75 Resp 18 18 B/P (MAP) 124/83 (97) 124/83 (97) Pulse Ox 98 98 O2 Delivery Room Air Blood Pressure Mean: 97 Progress Progress Note : Time: 19:10 Progress Note I have seen and evaluated the patient. I have informed her of normal imaging studies. She was instructed to follow up with PCP if symptoms persist. Return precautions were given. Diagnostic Imaging Diagonstic Imaging: Xray Plain Films/CT/US/NM/MRI: other (shoulder) Comments NAME: [facility] REC#: [id number] PHYSICIAN: KONSTANTIN PULIDO CC: ALEXIS PULIDO BRUCE A MD Page 1 of 1 RADIOLOGY REPORT [place] CC: ALEXIS PULIDO BRUCE A MD Page 1 of 1 RADIOLOGY REPORT NAME: [facility] REC#: [id number] PT STATUS: REG ER : 1995 PHYSICIAN: KONSTANTIN PULIDO ADMIT DATE: 05/11/18/ER Signed Date of Exam: 05/11/18 SHOULDER, LEFT, 3 VIEWS EXAM: Shoulder, left, 3 views. INDICATION: Left shoulder trauma and pain. COMPARISON: None. FINDINGS: No fracture or malalignment. No suspicious osteoblastic or lytic lesions. Soft tissue shadows are unremarkable. IMPRESSION: Negative left shoulder radiographs. Dictated by: Dictated on workstation # [id number] Dict: 05/11/181900 Trans: 05/11/181906 Interpreted by: XOCHITL HODGSON MD Electronically signed by: XOCHITL HODGSON MD 05/11/181906 Reviewed: Reviewed by Me Departure Impression Primary Impression: Left shoulder pain Disposition: 01 HOME, SELF-CARE Condition: Stable/Unchanged Departure-Patient Inst. Decision time for Depature: 19:15 Referrals: DAVIS SKAGGS DO (PCP) Primary Care Physician FLORESITA BONILLA (Family) Primary Care Physician Patient Instructions: Shoulder Sprain (DC) Add. Discharge Instructions: You may use Tylenol and ibuprofen as directed by the bottle. Follow-up with your primary care provider within 1 week for recheck. Return back to the emergency room for any worsening symptoms or concerns as needed. All discharge instructions reviewed with patient and/or family. Voiced understanding. Scripts No Active Prescriptions or Reported Meds KONSTANTIN PULIDO May 11, 2018 18:58
--- NOTE | 2018-05-11 19:04 | Diagnostic Imaging Report ---
EXAM: Shoulder, left, 3 views. INDICATION: Left shoulder trauma and pain. COMPARISON: None. FINDINGS: No fracture or malalignment. No suspicious osteoblastic or lytic lesions. Soft tissue shadows are unremarkable. IMPRESSION: Negative left shoulder radiographs. Dictated by: Dictated on workstation # [id number]
[2018-05-11 19:21] VITALS: BP 124/83
== END 2018-05-11 19:21 | disposition home or self-care (01) ==
LOC: EDUNIT# 17:28 → ER 17:30
DX: M25.512 Pain in left shoulder (principal); W20.8XXA Other cause of strike by thrown, projected or falling object, initial encounter; Y92.239 Unspecified place in hospital as the place of occurrence of the external cause; Y99.0 Civilian activity done for income or pay
CPT/HCPCS: 73030

== ENCOUNTER → 2018-07-12 | Outpatient (CLI) | payer OTHER, BC ==
--- NOTE | 2018-07-12 12:31 | Diagnostic Imaging Report ---
INDICATION: Six-month followup of right breast mass. COMPARISON: Correlation is made with a right breast ultrasound from 11/02/2017. FINDINGS: The previously noted circumscribed macrolobulated hypoechoic mass at the 7 o'clock location of the right breast 2 cm from the nipple is again seen. This is stable in size at 1.7 x 2.5 x 1.5 cm. There is some internal vascularity. No new abnormality is seen. IMPRESSION: Stable macrolobulated solid mass at the 7 o'clock location of the right breast 2 cm from the nipple. This remains suggestive of a fibroadenoma. An additional followup ultrasound in 6 months could be performed to confirm stability. The patient did express some interest in surgical excision. If so, surgical consultation could be obtained. ACR BI-RADS Category 3: Probably benign findings. Dictated by: Dictated on workstation # [id number]
== END ==
LOC: RAD 10:36
PROVIDERS: ATTEND Family Medicine
DX: N63.13 Unspecified lump in the right breast, lower outer quadrant (principal)

== ENCOUNTER → 2018-07-27 | Outpatient (CLI) | payer OTHER, BC ==
[~2018-07-27] VITALS: Ht 157.5 cm; Wt 78.0 kg
[~2018-07-27] MED LIST changes: +ACHD5005 PO; +OMEP20TA7 PO
== END | disposition home or self-care (01) ==
LOC: PREOP 05:42
PROVIDERS: ATTEND Surgery
DX: Z01.818 Encounter for other preprocedural examination (principal)

== ENCOUNTER 2018-08-01 09:04 | Day surgery (SDC) | payer OTHER, BC ==
[~2018-08-01] VITALS: Ht 167.6 cm; Wt 81.2 kg
[~2018-08-01 09:04] MED LIST changes: -ACHD5005 PO
[2018-08-01] MEDS ORDERED: LACTATED RINGERS 1,000 ML IV PRN (09:19)
[2018-08-01 09:30] VITALS: BP 116/76
[2018-08-01] MEDS ORDERED: ceFAZolin INJECTION 1,000 MG in NS (IVPB) 50 ML IV ONE (09:30)
--- OUTSIDE RECORDS SUMMARY | 2018-08-01 10:08 | XMS REPORT ---
Author Author JESSICA MADISON Organization [facility] Address [address] [place] [address] Care Team Providers Care Council Member Name Role Phone JESSICA MADISON Unavailable PROBLEMS No Known Problems ALLERGIES No Information ENCOUNTERS Encounter Location Date Diagnosis [facility] [address] [address] Jun, Lump of right breast N63.10 [facility] [id number] [place] [address]75- 6060 30 May, 2018 [facility] WALK IN [facility] [address] [address] 16 Apr, 2018 Sore throat J02.9 and Canker sore K12.0 [facility] WALK IN [facility] [id number] [place] [address]106 -9140 14 Apr, 2018 Back pain due to injury S39.92XA [facility] WALK IN [facility] [id number] [place] [address] 03428 -4490 17 Jan, 2018 [facility] [id number] [place] [address] 70185- 7441 December, Weight gain R63.5 [facility] [id number] [place] [address] 08677- 2850 Oct, [facility] [id number] [place] [address] 25904- 6646 Oct, Lump of right breast N63.10 [facility] [id number] [place] [address] 74149- 4259 Sep, [facility] [address] [address]- [address] Sep, [address] [address] 23 Sep, 2017 Well woman exam with routine gynecological exam Z01.419 ; Lump of right breast N63.10 ; Screening for STD sexually transmitted disease Z11.3 ; Vaginal discharge N89.8 ; Fluid level behind tympanic membrane of both ears H65.93 and control counseling Z30.[address] [address]- 2251 18 Jul, 2017 Weight gain R63.[address] [address]27- 0742 15 Jun, 2017 Weight gain R63.5 [facility] WALK IN [address] [address] 27 Jan, 2017 [facility] WALK IN [address] 229[address]455 Jan, Encounter for immunization Z23 and Laceration of right hand without foreign body, initial encounter S61.411A [facility] [address] [id number] 29 Apr, 2016 Dental examination Z01.20 [facility] WALK IN [address] [address] 08 Apr, 2016 Allergic reaction, initial encounter T78.40XA [facility] WALK IN [address] 8[address]7555 December, Other seasonal allergic rhinitis J30.2 [facility] WALK IN [address] 19686 -1678 11 Sep, 2015 Back pain, thoracic M54.[address] [address]- 7396 May, Sore throat J02.[address] [address]83- 7061 14 Nov, 2014 [facility] [address] [id number] [place] [address] 7608 Nov, [facility] [place] [facility] [address] [id number] [place] [address]- 2285 Aug, [facility] [place] [facility] [address] [id number] [place] [address]- 7524 Aug, [facility] [place] [facility] [address] [id number] [place] [address]- 9508 Oct, [facility] [place] [facility] [address] [id number] [place] [address]- 5934 Sep, [facility] [place] [facility] [address] [id number] [place] [address]- 8806 Sep, [facility] [place] [facility] [address] [id number] [place] [address]- 5590 Jun, [facility] [place] [facility] [address] [id number] [place] [address]- 7278 Jun, [facility] [place] [facility] [address] [id number] [place] [address]- 8284 Jul, [facility] [place] [facility] [address] [id number] [place] [address]- 9568 Jul, [facility] [place] [facility] [address] [id number] [place] [address]- 5023 14 Jul, 2012 [facility] [place] [facility] [address] [id number], [place] [address]- [address]69 14 Jul, 2012 [facility] [place] [facility] [address] [id number] [place] [address]- 6575 Jul, [facility] [place] [facility] [address] [id number] [place] [address] Jul, [facility] [place] [facility] [address] [id number] [place] [address]- 6725 Nov, [facility] [place] [facility] [address] [id number], [place] [address]- 6206 Aug, IMMUNIZATIONS No Known Immunizations SOCIAL HISTORY Never Assessed REASON FOR VISIT Referral PLAN OF CARE VITAL SIGNS MEDICATIONS Unknown Medications RESULTS No Results PROCEDURES No Known procedures INSTRUCTIONS MEDICATIONS ADMINISTERED No Known Medications MEDICAL (GENERAL) HISTORY Type Description Date Medical History Childhood asthma Medical History anemia Medical History back trouble Surgical History tubes in ears Hospitalization History asthma
--- OUTSIDE RECORDS SUMMARY | 2018-08-01 10:08 | XMS REPORT ---
Author Author RUBÉN THRASHER Organization [facility] Address [address] [place] [address] Care Team Providers Care Electrical Engineering Manager Name Role Phone RUBÉN THRASHER Unavailable PROBLEMS No Known Problems ALLERGIES No Known Allergies ENCOUNTERS Encounter Location Date Diagnosis [facility] [address] [address] 16 Apr, 2018 Sore throat J02.9 and Canker sore K12.0 [facility] WALK IN [facility] [id number] [place] [address] 84445 -3300 14 Apr, 2018 Back pain due to injury S39.92XA [facility] WALK IN [facility] [id number] [place] [address]80 -4798 17 Jan, 2018 [place] [address] [address] December, Weight gain R63.5 [place] [id number] [place] [address] 99240- 9230 Oct, [place] [id number] [place] [address] 67114- 4956 Oct, Lump of right breast N63.10 [facility] [id number] [place] [address] 84438- 0335 Sep, [place] [address] [address] 1564 Sep, [place] [id number] [place] [address] 28797- 0538 Sep, Well woman exam with routine gynecological exam Z01.419 ; Lump of right breast N63.10 ; Screening for STD sexually transmitted disease Z11.3 ; Vaginal discharge N89.8 ; Fluid level behind tympanic membrane of both ears H65.93 and control counseling Z30.09 [facility] [address] 24428- 8177 18 Jul, 2017 Weight gain R63.5 [place] [id number] [place] [address] 13479- 8979 15 Jun, 2017 Weight gain R63.5 [facility] [address] 7[address]3336 Jan, [facility] WALK IN [place] [address] 747[address]6257 Jan, Encounter for immunization Z23 and Laceration of right hand without foreign body, initial encounter S61.411A [facility] [address] [id number] Apr, Dental examination Z01.20 [facility] WALK IN CARE [facility] [address] [address] 08 Apr, 2016 Allergic reaction, initial encounter T78.40XA [facility] WALK IN [address] [address]3447 December, Other seasonal allergic rhinitis J30.2 [facility] WALK IN [place] [id number] [place] [address] 41770 -3354 Sep, Back pain, thoracic M54.6 [place] [address] 71878- 8206 May, Sore throat J02.9 [place] [address] 66934- 5776 Nov, [place] [address] 41635- 5141 Nov, [place] [id number] [place] [address] 83493- 4456 Aug, [place] [id number] [address] 2546 Aug, [facility] [address] [facility] [id number], [place] [address]- 8036 Oct, [facility] [address] [facility] [id number], [place] [address]- 2546 Sep, [facility] [address] [id number] [address] 2546 Sep, [facility] [address] [facility] [id number] [place] [address]- 2546 Jun, [facility] [id number] [place] [address]- 25[address] Jun, [facility] [address] [id number], [place] [address] 2546 Jul, [facility] [address], [place] [address] 2546 Jul, [facility] [address], [place] [address] 2546 Jul, [facility] [address], [place] [address] 2546 Jul, [facility] [address] [id number], [place] [address]- 2086 Jul, [facility] [address] [id number], [place] [address] 2546 Jul, [facility] [address] [id number], [place] [address] 2544 Nov, [facility] [address] [id number], [place] [address]- 4506 Aug, IMMUNIZATIONS No Known Immunizations SOCIAL HISTORY Never Assessed REASON FOR VISIT Pt was in a supply closet when supplies fell onto her from above. Reports no pain or injury. Needing a note for HR at work (via debra) stating she was evaluated. [email or web address] PLAN OF CARE Activity Details Follow Up prn Reason: VITAL SIGNS Height 65 in 2018-05-11 Weight 173.4 lbs 2018-05-11 Temperature 98.4 degrees Fahrenheit 2018-05-11 Heart Rate 88 bpm 2018-05-11 Respiratory Rate 20 2018-05-11 BMI 28.85 kg/m2 2018-05-11 Blood pressure systolic 108 mmHg 2018-05-11 Blood pressure diastolic 70 mmHg 2018-05-11 MEDICATIONS Medication Instructions Dosage Frequency Start Date End Date Duration Status Ibuprofen 200 mg take 2 tablets by Oral route 2 times per day with food Aug, Active RESULTS No Results PROCEDURES No Known procedures INSTRUCTIONS MEDICATIONS ADMINISTERED No Known Medications MEDICAL (GENERAL) HISTORY Type Description Date Medical History Childhood asthma Medical History anemia Medical History back trouble Surgical History tubes in ears Hospitalization History asthma
--- OUTSIDE RECORDS SUMMARY | 2018-08-01 10:08 | XMS REPORT ---
Author Author JESSICA MADISON [facility] Address [address] [place] [address] Care Team Providers Care Actimize Architect Name Role Phone JESSICA MADISON Unavailable PROBLEMS No Known Problems ALLERGIES No Information ENCOUNTERS Encounter Location Date Diagnosis [facility] [id number] [place] [address] 90481- 5421 30 May, 2018 [facility] [address] 22542 [address]2261 16 Apr, 2018 Sore throat J02.9 and Canker sore K12.0 [facility] WALK IN [facility] [id number] [place] [address] 10167 -9248 14 Apr, 2018 Back pain due to injury S39.92XA [facility] IN [facility] [id number] [place] [address] 73298 -9712 Jan, [facility] [address] 73306- 5535 December, Weight gain R63.5 [place] [id number] [place] [address] 11013- 9871 Oct, [place] [address] 82512- 3881 Oct, Lump of right breast N63.10 [place] [id number] [place] [address] 32988- 3550 Sep, [facility] [id number] [place] [address] 13195- 1783 Sep, [place] [address] 93667- 5759 23 Feb, 2018 Well woman exam with routine gynecological exam Z01.419 ; Lump of right breast N63.10 ; Screening for STD sexually transmitted disease Z11.3 ; Vaginal discharge N89.8 ; Fluid level behind tympanic membrane of both ears H65.93 and control counseling Z30.09 [place] [address] 36755- 5511 18 Jul, 2017 Weight gain R63.5 [place] [address] 27215- 2725 15 Jun, 2017 Weight gain R63.5 [facility] WALK IN [place] [address] 34275 -4953 27 Jan, 2017 [facility] WALK IN [place] [address] 23599 -5892 Jan, Encounter for immunization Z23 and Laceration of right hand without foreign body, initial encounter S61.411A [facility] [address] [id number] 29 Apr, 2016 Dental examination Z01.20 [facility] WALK IN [address] 23072 -6067 08 Apr, 2016 Allergic reaction, initial encounter T78.40XA [facility] WALK IN [address] 69514 -6265 December, Other seasonal allergic rhinitis J30.2 [facility] WALK IN [place] [address] 61319 -4620 11 Sep, 2015 Back pain, thoracic M54.6 [place] [address] 57593- 7737 May, Sore throat J02.9 [place] [address] 05673- 5330 14 Nov, 2014 [place] [address] 09976- 9136 Nov, [place] [address] [place] [address] [id number] [address]- 6799 Aug, [facility] [address] [facility] [id number], [place] [address]- 1940 Aug, [facility] [address] [facility] [id number], [place] [address]- 3716 Oct, [facility] [address] [facility] [id number], [place] [address]- 6443 Sep, [facility] [address] [facility] [id number] [place] [address]- 0594 Sep, [facility] [address], [place] [address]- 2656 Jun, [facility] [address] [facility] [id number], [place] [address]- 0223 Jun, [facility] [address], [place] [address]- 0989 Jul, [facility] [address] [facility] [id number], [place] [address]- 1196 Jul, [facility] [address], [place] [address]- 2002 Jul, [facility] [id number], [place] [address]- 7893 Jul, [facility] [address] [id number], [place] [address]- 1042 Jul, [facility] [address] [facility] [id number], [place] [address]- 0244 Jul, [facility] [address] 4628 Nov, [facility] [address] [facility] [id number] 3[address] Aug, IMMUNIZATIONS No Known Immunizations SOCIAL HISTORY Never Assessed REASON FOR VISIT refill request PLAN OF CARE VITAL SIGNS MEDICATIONS Unknown Medications RESULTS No Results PROCEDURES No Known procedures INSTRUCTIONS MEDICATIONS ADMINISTERED No Known Medications MEDICAL (GENERAL) HISTORY Type Description Date Medical History Childhood asthma Medical History anemia Medical History back trouble Surgical History tubes in ears Hospitalization History asthma
--- OUTSIDE RECORDS SUMMARY | 2018-08-01 10:08 | XMS REPORT ---
Author Author HÉCTOR GAN Organization [facility] Address [address] [place] [address] Care Team Providers Care Integrity Engineer Name Role Phone HÉCTOR GAN Unavailable PROBLEMS No Known Problems ALLERGIES No Known Allergies ENCOUNTERS Encounter Location Date Diagnosis [facility] [id number] [place] [address] 69265 -7669 16 Apr, 2018 Sore throat J02.9 and Canker sore K12.0 [facility] WALK IN [facility] [id number] [place] [address] 26187 -8159 14 Apr, 2018 Back pain due to injury S39.92XA [facility] WALK IN [facility] [id number] [place] [address] 15899 -7822 17 Jan, 2018 [place] [id number] [place] [address] 49350- 1348 December, Weight gain R63.5 [place] [id number] [place] [address] 48395- 7592 Oct, [place] [id number] [place] [address] 91595- 5384 Oct, Lump of right breast N63.10 [place] [id number] [place] [address] 86927- 7283 Sep, [place] [id number] [place] [address] 83860- 6873 Sep, [place] [id number] [place] [address] 92096- 6517 Sep, Well woman exam with routine gynecological exam Z01.419 ; Lump of right breast N63.10 ; Screening for STD sexually transmitted disease Z11.3 ; Vaginal discharge N89.8 ; Fluid level behind tympanic membrane of both ears H65.93 and control counseling Z30.[address] 71616- 6939 18 Jul, 2017 Weight gain R63.[address] 10170- 4489 15 Jun, 2017 Weight gain R63.5 [facility] IN CARE [address] [place] [address] 76575 -8044 27 Jan, 2017 [facility] WALK IN [address] [address] Jan, Encounter for immunization Z23 and Laceration of right hand without foreign body, initial encounter S61.411A [facility] [address] [id number] Apr, Dental examination Z01.20 [facility] WALK IN [address] 85413 -3622 08 Apr, 2016 Allergic reaction, initial encounter T78.40XA [facility] WALK IN [address] 87366 -8348 December, Other seasonal allergic rhinitis J30.2 [facility] WALK IN [address] 71416 -4958 Sep, Back pain, thoracic M54.[address] 85950- 4100 May, Sore throat J02.[address] 65077- 8887 14 Nov, 2014 [place] [address] [address]- [address]109 Nov, [address] 68[address]- 1884 Aug, [facility] [address] [facility] [id number] [address]- 1546 Aug, [facility] [address] [facility] [id number] [place] [address]- 6916 Oct, [facility] [address] [facility] [id number] [place] [address]- 0876 Sep, [facility] [address] [facility] [id number] [place] [address]- 7366 Sep, [facility] [address] [facility] [id number] [place] [address]- 2546 Jun, [facility] [address] [facility] [id number] [place] [address]- 6276 Jun, [facility] [address] [facility] [id number] [place] [address]- 0874 Jul, [facility] [address] [facility] [id number] [address]- 9373 Jul, [facility] [address] [facility] [id number] [place] [address]- 1306 Jul, [facility] [address] [place] [id number] [address]- 3531 Jul, [facility] [address] [place] [address] [id number] [address]- 1026 Jul, [facility] [address] [facility] [id number] [address]- 2206 Jul, [facility] [address] [facility] [id number] [place] [address]- 0160 Nov, [facility] [address] [place] [address] [id number] [address]- 3646 Aug, IMMUNIZATIONS No Known Immunizations SOCIAL HISTORY Never Assessed REASON FOR VISIT sore throat since yesterday. denies cough. lucy, reports she gets strep on a regular basis...would like to be tested. PLAN OF CARE Activity Details Follow Up prn Reason: VITAL SIGNS Height 65 in 2018-05-13 Weight 175.0 lbs 2018-05-13 Temperature 97.9 degrees Fahrenheit 2018-05-13 Heart Rate 80 bpm 2018-05-13 Respiratory Rate 20 2018-05-13 BMI 29.12 kg/m2 2018-05-13 Blood pressure systolic 122 mmHg 2018-05-13 Blood pressure diastolic 72 mmHg 2018-05-13 MEDICATIONS Medication Instructions Dosage Frequency Start Date End Date Duration Status First-Mouthwash BLM - apply with applicator 6 times a day 2 ml 4h Apr, Apr, 5 days Active Ibuprofen 200 mg take 2 tablets by Oral route 2 times per day with food Aug, Active RESULTS Name Result Date Reference Range STREP A (IN HOUSE) 2018-05-13 STREP A negative Control + Lot # [id number] Exp date 2018 PROCEDURES Procedure Date Ordered Result Body Site STREP A ASSAY W/OPTIC May 13, 2018 INSTRUCTIONS MEDICATIONS ADMINISTERED No Known Medications MEDICAL (GENERAL) HISTORY Type Description Date Medical History Childhood asthma Medical History anemia Medical History back trouble Surgical History tubes in ears Hospitalization History asthma
--- OUTSIDE RECORDS SUMMARY | 2018-08-01 10:10 | XMS REPORT | Continuity of Care Document ---
Author Author Formerly [facility] Address Unknown Phone Unavailable Allergies Active Description Code Type Severity Reaction Onset Reported/Identified Relationship to Patient Clinical Status Yes No Known Drug Allergies [id number] Drug Allergy Unknown N/A 07/27/2018 Medications There is no data. Problems Date [...] BALDERAS MD 333.1 TREMOR, BENIGN ESSENTIAL 10/25/2013 DOV BALDERAS MD 780.79 FATIGUE 05/06/2016 EDY JAMES [...] LUMP IN THE RIGHT BREAST, LO 05/10/2018 JESSICA MADISON MD Ot N63.13 UNSPECIFIED LUMP IN THE RIGHT BREAST, LO 05/11/2018 JESSICA MADISON MD Ot N63.13 UNSPECIFIED LUMP IN THE RIGHT BREAST, LO 05/11/2018 KONSTANTIN PULIDO Ot M25.512 PAIN IN LEFT SHOULDER 05/11/2018 BERNTAYLA MEJIAIS Ot W20.8XXA OTH CAUSE OF STRIKE BY THROWN, PROJECTED 05/11/2018 BERNTAYLA MEJIAIS Ot Y92.[address]ITAL PLACE 05/11/2018 BERNROBERTO, KONSTANTIN Ot Y99.0 CIVILIAN ACTIVITY DONE FOR INCOME OR PAY 05/14/2018 BERNTAYLA MEJIAIS Ot M25.512 PAIN IN LEFT SHOULDER 05/14/2018 BERNROBERTO, KONSTANTIN Ot W20.8XXA OTH CAUSE OF STRIKE BY THROWN, PROJECTED 05/14/2018 BERNTAYLA MEJIAIS Ot Y92.[address] [facility] PLACE 05/14/2018 BERNROBERTO, KONSTANTIN Ot Y99.0 CIVILIAN ACTIVITY DONE FOR INCOME OR PAY 05/31/2018 JESSICA MADISON MD N Ot N63.13 UNSPECIFIED LUMP IN THE RIGHT BREAST, LO 06/14/2018 JESSICA MADISON MD Ot N63.13 UNSPECIFIED LUMP IN THE RIGHT BREAST, LO 06/19/2018 JESSICA MADISON MD Ot N63.13 UNSPECIFIED LUMP IN THE RIGHT BREAST, LO 06/19/2018 JESSICA MADISON MD N Ot N63.13 UNSPECIFIED LUMP IN THE RIGHT BREAST, LO 07/13/2018 JESSICA MADISON MD Ot N63.13 UNSPECIFIED LUMP IN THE RIGHT BREAST, LO 07/16/2018 JESSICA MADISON MD Ot N63.13 UNSPECIFIED LUMP IN THE RIGHT BREAST, LO 07/30/2018 PHONG MESSER, PRIMITIVO Contreras Ot Z01.818 ENCOUNTER FOR OTHER PREPROCEDURAL EXAMIN Procedures Code [place] [address] ROUTINE VENIPUNCTURE 08/10/2012 19263 A1C (IN-HOUSE) 08/10/2012 44021 CBC 08/10/2012 66240 INSULIN LEVEL 08/11/2012 37971 STREP A (IN-HOUSE) 07/05/2013 16707 MONO TEST (IN-HOUSE) 10/25/2013 44218 TSH 10/25/2013 89806 CBC 10/25/2013 24549 CMP 10/25/2013 Results Test Result Range Drug Screen + ETOH - 08/01/16 11:23 Electroneurodiagnostic Technologist Nhi Dickens Donor ID By Employer Representitive Ethanol, Urine <10.00 mg/dL 20.00-80.00 Location [facility] Reason For Test Random Temperature In Range [...] - 10/20/17 11:57 CLINICAL INFORMATION: NRG LMP: [id number] NRG PREV. PAP: NL NRG PREV. BX: NONE NRG SOURCE: Cervix NRG STATEMENT OF ADEQUACY: NRG INTERPRETATION/RESULT: NRG RADIO SPORTSCASTER: NRG REVIEW RADIO SPORTSCASTER: NRG INFECTION: NRG Urine beta human chorionic gonadotropin (hCG) measurement - 08/01/18 07:20 Urine beta human chorionic gonadotropin (hCG) measurement NEGATIVE NEGATIVE Encounters ACCT No. Visit Date/Time Discharge Status Pt. Type Provider Facility Loc./Unit Complaint [id number] 10/25/2013 08:46:00 10/25/2013 23:59:59 CLS Outpatient DOV BALDERAS MD [id number] 07/05/2013 13:34:00 07/05/2013 23:59:59 CLS Outpatient DOV BALDERAS MD [id number] 08/10/2012 08:14:00 08/10/2012 23:59:59 CLS Outpatient FLORESITA BONILLA APRN [id number] 07/27/2018 05:42:00 07/27/2018 23:59:59 CLS Outpatient PHONG MESSER, PRIMITIVO Contreras [facility] PREOP PALPABLE RIGHT BREAST LUMP [id number] 07/12/2018 10:45:00 07/12/2018 23:59:59 CLS Outpatient JESSICA MADISON MD [facility] RAD LUMP OF RIGHT BREAST N63.10 [id number] 05/11/2018 17:30:00 05/11/2018 19:21:00 DIS Emergency KONSTANTIN PULIDO [facility] ER HEAD,SHOULDER,BACK PAIN WC [id number] 05/09/2018 08:49:00 05/09/2018 23:59:59 CLS Preadmit JESSICA MADISON MD [facility] RAD LUMP OF RIGHT BREAST [id number] 11/02/2017 10:23:00 11/02/2017 23:59:59 CLS Outpatient JESSICA MADISON MD [facility] RAD LUMP OF RT BREAST [id number] 05/06/2016 22:24:00 05/06/2016 23:03:00 DIS Emergency EDY JAMES MD [facility] ER R TOOTH PAIN [id number] 03/23/2013 13:00:00 03/23/2013 23:59:59 CLS Outpatient [id number] 08/01/2018 09:30:00 PEN Preadmit PRIMIT[facility]LING [facility] [id number] 09/21/2017 16:23:00 09/21/2017 23:59:00 DIS Outpatient TAVO NELSON [id number] 08/24/2017 09:16:00 08/24/2017 23:59:00 DIS Outpatient TAVO NELSON [id number] 07/24/2017 13:30:00 07/24/2017 23:59:00 DIS Outpatient TAVO NELSON [id number] 08/01/2016 11:11:00 08/01/2016 23:59:00 DIS Outpatient UNLISTED, UNLISTED [id number] 05/13/2018 15:30:00 05/13/2018 23:59:59 CLS Outpatient FLORESITA BONILLA APRN [facility] [id number] 10/20/2017 11:00:00 Document Registration
[2018-08-01] MEDS ORDERED: BUP/EPI 0.5% 1:200,000 (SENSORCAINE) 30 ML VIAL ONE ×2 (10:30→11:21)
--- NOTE | 2018-08-01 11:11 | Progress Note-Pre Operative ---
Pre-Operative Progress Note H&P Reviewed The H&P was reviewed, patient examined and no changes noted. Date Seen by Provider: Jul 26, 2018 Time Seen by Provider: 16:14 Date H&P Reviewed: Aug 01, 2018 Time H&P Reviewed: 11:10 Pre-Operative Diagnosis: lump right breast PRIMITIVO DARLING MD Aug 01, 2018 11:10
[2018-08-01] MEDS ORDERED: proPOfol 200 MG/20 ML (DIPRIVAN) VIAL IV ONE (11:27)
[2018-08-01] MEDS ORDERED: LIDOCAINE PF 2% 5 ML (XYLOCAINE) VIAL ONE (11:27)
[2018-08-01] MEDS ORDERED: fentaNYL INJECTION 100 MCG/2 ML AMP ONE (11:27)
[2018-08-01] MEDS ORDERED: SEVOFLURANE (ULTANE) 15 ML INHAL SOLN ONE (11:27)
[2018-08-01] MEDS ORDERED: MIDAZOLAM 2 MG/2 ML (VERSED) VIAL ONE (11:28)
[2018-08-01] MEDS ORDERED: ONDANSETRON 4 MG/2 ML (SDV) Z0FRAN ONE (12:01)
[2018-08-01] MEDS ORDERED: DEXAMETHASONE 10 MG/ML (DECADRON) 1 ML VIAL ONE (12:01)
[2018-08-01] MEDS ORDERED: ACHD5005 PO (12:13)
--- NOTE | 2018-08-01 12:13 | Operative Report ---
Operative Report Date of Procedure/Surgery Aug 01, 2018 Surgeon (s) PRIMITIVO DARLING MD Plate Cutter (s): N/A Post-Operative Diagnosis same Procedure Performed excision Description of Procedure Anesthesia Type: General Estimated blood loss (mL): minimal Specimen(s) collected/removed right breast lump Description of the Procedure Indication for the procedure: This lady presented with a palpable right breast lump, having the radiologic and clinical features of a fibroadenoma. She was offered simple excision to confirm the diagnosis. Informed consent was obtained after reviewing the operative details and complications of hematoma and wound infection. Description of the procedure: She was placed supine on the operating table and general anesthesia induced. Ancef was administered intravenously as prophylaxis against wound infection. Right breast was prepared and draped in the usual sterile manner. A 3 cm incision was made overlying the palpable lump, at about 7 o'clock position and the lump, having the appearance of a typical fibroadenoma excised. It was sent for histologic examination. Hemostasis was achieved using cautery and incision closed using 3-0 Vicryl for the dermal layer and 4-0 Vicryl for skin, in a subcuticular fashion. 0.5 percent Marcaine with epinephrine was infiltrated along the incision and then the operation. She tolerated the procedure well, was extubated in the operating room and taken to the recovery room in a stable condition. Findings of the Procedure see op report Allergies and Home Medications Allergies Coded Allergies: No Known Drug Allergies (Unverified , 07/27/18) Home Medications Omeprazole 20 Mg Tablet.dr, 20 MG PO DAILY, (Reported) Patient Home Medication List Home Medication List Reviewed: Yes PRIMITIVO DARLING MD Aug 01, 2018 12:13
--- NOTE | 2018-08-01 12:14 | Discharge Inst-Simple/Standard ---
Discharge Inst-Standard Discharge Medications New, Converted or Re-Newed RX: RX on Chart Patient Instructions/Follow Up Plan of Care/Instructions/FU: Band-Aids off in 48 hours; for follow-up in 3 weeks. We will call once pathology report is available. Activity as Tolerated: Yes Discharge Diet: No Restrictions PRIMITIVO DARLING MD Aug 01, 2018 12:14
[2018-08-01] MEDS ORDERED: ONDANSETRON 4 MG/2 ML (SDV) Z0FRAN IVP PRN (12:30)
[2018-08-01] MEDS ORDERED: MEPERIDINE (DEMEROL) INJ 50 MG/ML IVP ONE (12:30)
[2018-08-01] MEDS ORDERED: morphine INJ 10 MG/ML 1ML (SYR OR VIAL) IVP ONE (12:30)
[2018-08-01 13:15] VITALS: BP 122/58
[2018-08-01 13:45] VITALS: BP 104/55
--- NOTE | 2018-08-01 13:50 | Anesthesia-General Post-Op ---
General Patient Condition Mental Status/LOC: Same as Preop Cardiovascular: Satisfactory Nausea/Vomiting: Absent Respiratory: Satisfactory Pain: Controlled Complications: Absent Post Op Complications Complications None Follow Up Care/Instructions Patient Instructions None needed. Anesthesia/Patient Condition Patient Condition Patient is doing well, no complaints, stable vital signs, no apparent adverse anesthesia problems. HARI CARTAGENA DO Aug 01, 2018 13:50
[2018-08-01 14:15] VITALS: BP 125/80
[2018-08-01] MEDS ORDERED: HYDROcodone/APAP 5 MG/325 MG (LORTAB) TAB PO ONE (14:30)
[2018-08-01 14:35] VITALS: BP 125/80
== END 2018-08-01 14:35 | disposition home or self-care (01) ==
LOC: SDC 09:04
PROVIDERS: ATTEND Surgery
DX: D24.1 Benign neoplasm of right breast (principal); K21.9 Gastro-esophageal reflux disease without esophagitis
CPT/HCPCS: 84703; 87081

== ENCOUNTER 2019-07-21 16:32 | Emergency (ER) | payer OTHER, BC ==
[~2019-07-21] VITALS: Ht 165 cm; Wt 68.0 kg
[~2019-07-21 16:32] MED LIST changes: +ACHD5005 PO
--- NOTE | 2019-07-21 16:55 | ED Upper Extremity ---
General Chief Complaint: Laceration Stated Complaint: R HAND LAC Nursing Triage Note: PT AMBULATE TO TRIAGE WITH C/O LAC TO RIGHT HAND. PT STATES SHE WAS WORKING OUTSIDE AND WENT INSIDE AND NOTICED HER HAND FELT LIKE IT WAS BURNING AND NOTICED IT WAS BLEEDING. BOYFRIEND STATES HE THINKS SHE GOT HAND CAUGHT BETWEEN TRUCK AND TRAILER. Nursing Sepsis Screen: No Definite Risk Source: patient Exam Limitations: no limitations History of Present Illness Date Seen by Provider: Jul 21, 2019 Time Seen by Provider: 16:53 Initial Comments To ER with a laceration to the right hand to the palmar surface radial side proximal phalanx pinky finger. She was helping her significant other hitch and trailer, believes she got this caught on a trailer. Uncertain when her last tetanus shot was. Onset: just prior to arrival Severity: moderate Pain/Injury Location: left 5th finger Method of Injury: unknown Modifying Factors: Worse With Movement Allergies and Home Medications Allergies Coded Allergies: No Known Drug Allergies (Unverified , 07/27/18) Home Medications Hydrocodone Bit/Acetaminophen 1 Tab Tab, 1 TAB PO Q6H PRN for PAIN-MODERATE Prescribed by: PRIMITIVO DARLING on 08/01/18 1213 Omeprazole 20 Mg Tablet.dr, 20 MG PO DAILY, (Reported) Patient Home Medication List Home Medication List Reviewed: Yes Review of Systems Constitutional: see HPI EENTM: see HPI Respiratory: no symptoms reported Cardiovascular: no symptoms reported Genitourinary: no symptoms reported Musculoskeletal: see HPI Skin: see HPI Psychiatric/Neurological: No Symptoms Reported Past Epebspc-Lqgagl-Fapfvd Hx Patient Social History Alcohol Use: Denies Use Number of Drinks Today: II Alcohol Beverage of Choice: Other Recreational Drug Use: No Smoking Status: Never a Smoker 2nd Hand Smoke Exposure: No Recent Foreign Travel: No Contact w/Someone Who Travel: No Recent Infectious Disease Expo: No Recent Hopitalizations: No Physical Abuse: No Sexual Abuse: No Mistreated: No Fear: No Immunizations Up To Date Date of Influenza Vaccine: Jul 23, 2018 Seasonal Allergies Seasonal Allergies: No Past Medical History Surgeries: Yes (BMT, WISDOM TEETH) Respiratory: No Cardiac: No Neurological: No Reproductive Disorders: No Female Reproductive Disorders: Denies Sexually Transmitted Disease: No HIV/AIDS: No Genitourinary: No Gastrointestinal: Yes Gastroesophageal Reflux Musculoskeletal: No Endocrine: No HEENT: No Loss of Vision: Denies Hearing Impairment: Denies Cancer: No Psychosocial: No Integumentary: No Blood Disorders: No Adverse Reaction/Blood Tranf: No (N/A) Physical Exam Vital Signs Vital Signs - First Documented 07/21/19 16:35 Temp 36.7 Pulse 76 Resp 19 B/P (MAP) 126/86 (99) O2 Delivery Room Air Capillary Refill : Less Than 3 Seconds Height, Weight, BMI Height: 5'6.00" Weight: 179lbs. 0.0oz. 81.589893xa; 24.00 BMI Method:Stated General Appearance: WD/WN, no apparent distress HEENT: PERRL/EOMI, normal ENT inspection Respiratory: no respiratory distress, no accessory muscle use Shoulder: normal inspection, non-tender Elbow/Forearm: normal inspection, non-tender Hand: Right, laceration, limited ROM (1 cm laceration palmar surface proximal phalanx radial side of the 5th finger.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/Tendon: normal sensation, normal motor functions Neurologic/Psychiatric: alert, normal mood/affect, oriented x 3 Skin: normal color, warm/dry Procedures/Interventions Wound Location: Upper Extremities Wound Length (cm): 1 Wound's Depth, Shape: linear Wound Explored: clean Irrigated w/ Saline (ccs): 30 Anesthesia: 1% Lidocaine Volume Anesthetic (ccs): 1 Suture: Prolene Suture Size: 5-0 Number of Sutures: 3 Layer Closure?: 1 Progress/Results/Core Measures Results/Orders My Orders Orders - DENNYS LUJAN APRN Hand, Right, 3 Views (07/21/19 16:50) Dipht,Pertuss(Acell),Tet Adult (Boostrix (07/21/19 17:00) Cephalexin Capsule (Keflex Capsule) (07/21/19 17:00) Lidocaine 1% Inj 20 Ml (Xylocaine 1% Inj (07/21/19 17:00) Urine Bedside (07/21/19 16:58) Medications Given in ED Current Medications Medications Dose Ordered Sig/Jennifer Route Start Time Stop Time Status Last Admin Dose Admin Cephalexin HCl 500 mg ONCE ONCE PO 07/21/19 17:00 07/21/19 17:01 DC 07/21/19 17:08 500 MG Diphtheria/ Tetanus/Acell Pertussis 0.5 ml ONCE ONCE IM 07/21/19 17:00 07/21/19 17:01 DC 07/21/19 17:09 0.5 ML Lidocaine HCl 1 ml ONCE ONCE INJ 07/21/19 17:00 07/21/19 17:01 DC 07/21/19 17:08 1 ML Vital Signs/I&O 07/21/19 16:35 Temp 36.7 Pulse 76 Resp 19 B/P (MAP) 126/86 (99) O2 Delivery Room Air Blood Pressure Mean: 99 POS Departure Impression Primary Impression: Finger laceration Qualified Codes: S61.216A - Laceration without foreign body of right little finger without damage to nail, initial encounter Disposition: HOME, SELF-CARE Condition: Stable Departure-Patient Inst. Decision time for Depature: 16:55 Referrals: JESSICA MADISON MD (PCP/Family) Primary Care Physician Patient Instructions: Wound Care (DC), Laceration Repair With Stitches (DC) Add. Discharge Instructions: 1. Return to ER in 7-10 days to have the stitches removed 2. You can take this dressing off tomorrow replacing it with a simple Band-Aid were you can replace it with a dressing of the same style that I placed tonight. Either way you can shower allowing water run over the starting later this evening but don't soak this in water such as a hot tub bath tub or swimming pool. Antibiotics as directed. All discharge instructions reviewed with patient and/or family. Voiced understanding. Scripts Cephalexin (Keflex) 500 Mg Capsule 500 MG PO TID, #9 CAP Prov: DENNYS LUJAN APRN 07/21/19 DENNYS LUJAN APRN Jul 21, 2019 16:55 POS
[2019-07-21] MEDS ORDERED: TETANUS,DIPTH,PERTUSS P/F (BOOSTRIX) 0.5 ML VIAL IM ONE (17:00)
[2019-07-21] MEDS ORDERED: CEPHALEXIN 250 MG (KEFLEX) CAP PO ONE (17:00)
[2019-07-21] MEDS ORDERED: LIDOCAINE 1% INJ 20 ML 20 ML VIAL INJ ONE (17:00)
[2019-07-21] MEDS ORDERED: IOHEXOL 350 MG/ML 100 ML (OMNIPAQUE 350) VIAL IV ONE (17:30)
[2019-07-21] MEDS ORDERED: HOLD METFORMIN - RECEIVED CONTRAST 20 ML VIAL IV SCH (17:30)
[2019-07-21] MEDS ORDERED: CATHETER FLUSH 10 ML SYR IV PRN (17:30)
[2019-07-21] MEDS ORDERED: NS 100 ML (IVPB) BAG IV ONE (17:30)
--- NOTE | 2019-07-21 17:31 | Diagnostic Imaging Report ---
INDICATION: Right hand laceration. FINDINGS: 3 views of the right hand show no fracture, dislocation or radiopaque foreign objects. IMPRESSION: No acute abnormality seen in the hand. Dictated by: Dictated on workstation # [id number]
[2019-07-21] MEDS ORDERED: CEPH-507 PO (17:45)
[2019-07-21 17:58] VITALS: BP 129/68
== END 2019-07-21 17:58 | disposition home or self-care (01) ==
LOC: EDUNIT# 16:32 → ER 16:33
DX: S61.216A Laceration without foreign body of right little finger without damage to nail, initial encounter (principal); K21.9 Gastro-esophageal reflux disease without esophagitis; Z23 Encounter for immunization; W23.1XXA Caught, crushed, jammed, or pinched between stationary objects, initial encounter
CPT/HCPCS: 12041; 73130; 84703; 90471; 90715

== ENCOUNTER 2019-10-24 15:32 | Outpatient (CLI) | payer OTHER, BC ==
[~2019-10-24] VITALS: Ht 165 cm; Wt 75.0 kg
[~2019-10-24 15:32] MED LIST changes: +CEPH-507 PO; +FAMO20TA3 PO; +PANT40TA3 PO; +SUCR1TAB36 PO
== END 2019-10-24 15:37 | disposition home or self-care (01) ==
LOC: PREOP 15:32
PROVIDERS: ATTEND Surgery
DX: Z01.818 Encounter for other preprocedural examination (principal)

== ENCOUNTER → 2019-10-29 | Outpatient (CLI) | payer BC, OTHER ==
--- NOTE | 2019-10-29 08:44 | Diagnostic Imaging Report ---
CLINICAL INDICATION: Patient with heartburn. EXAM: Right upper quadrant ultrasound. COMPARISON: None. FINDINGS: LIVER: The visualized portions of the liver is normal in shape and echogenicity without focal lesions. The main portal vein demonstrates hepatopedal flow. GALLBLADDER: The gallbladder is normal in size, shape, and wall thickness without stones, sludge, or masses. There is no sonographic Ballard sign. BILE DUCTS: There is no evidence of intra- or extrahepatic biliary ductal dilatation. The common duct measured a maximum of 3.5 mm in diameter. PANCREAS: The visualized portions of the pancreas has normal size, shape, and echogenicity without focal lesions. RIGHT KIDNEY: There is a 1.8 cm cyst involving the upper pole of the right kidney. Otherwise, the visualized portions of the right kidney are unremarkable. Right kidney measures 10.2 cm in craniocaudal dimension. OTHER FINDINGS: The visualized portions of the abdominal aorta and IVC are grossly unremarkable. There is no abdominal ascites. IMPRESSION: Right renal cyst. Otherwise, unremarkable right upper quadrant ultrasound. Dictated by: Dictated on workstation # [id number]
== END ==
LOC: RAD 06:35
PROVIDERS: ATTEND Surgery
DX: N20.0 Calculus of kidney (principal); R12 Heartburn
CPT/HCPCS: 76705

== ENCOUNTER → 2019-11-01 | Outpatient (CLI) | payer BC, OTHER ==
[~2019-11-01] MED LIST changes: +CATHETER FLUSH 10 ML SYR IV PRN
--- NOTE | 2019-11-01 12:32 | Diagnostic Imaging Report ---
INDICATION: Heartburn. Patient was administered 5.5 mCi technetium 99m Choletec intravenously and imaging over the abdomen was performed. After 60 minutes patient ingested 1 can of Ensure and a gallbladder ejection fraction was calculated. There is homogeneous uptake of activity by the liver. There is a prompt excretion of activity into the gallbladder and common duct. Normal passage of activity into the small bowel is seen. Gallbladder ejection fraction is lower limits of normal at 39%. IMPRESSION: Normal HIDA scan and gallbladder ejection fraction. Dictated by: Dictated on workstation # [id number]
== END ==
LOC: CARD 09:28
PROVIDERS: ATTEND Surgery
DX: R12 Heartburn (principal)
CPT/HCPCS: 78227

== ENCOUNTER 2020-02-03 05:44 | Outpatient (RCR) | payer OTHER ==
[~2020-02-03] VITALS: Ht 165.1 cm; Wt 75.0 kg
[~2020-02-03 05:44] MED LIST changes: -CATHETER FLUSH 10 ML SYR IV PRN
[2020-02-06] MEDS ORDERED: HYDR-4226 PO (10:12)
[2020-02-06] MEDS ORDERED: DOCU-143 PO (10:12)
== END 2020-02-03 15:06 | disposition home or self-care (01) ==
LOC: PREOP 05:44
PROVIDERS: ATTEND Surgery
DX: Z01.818 Encounter for other preprocedural examination (principal); Z11.59 Encounter for screening for other viral diseases
CPT/HCPCS: 87635

== ENCOUNTER 2020-02-06 07:24 | Day surgery (SDC) | payer OTHER ==
[2020-02-06] VITALS (11 sets, daily range): BP systolic 107–143; BP diastolic 66–99
[~2020-02-06] VITALS: Ht 165.1 cm; Wt 75.0 kg
--- OUTSIDE RECORDS SUMMARY | 2020-02-06 07:31 | XMS REPORT ---
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 for Encounter for MARYLU MARTIN (no [facility] laboratory medicine test, result phone) (n o phone) unknown 02-03-2020 Discharged Recurring no information (no phone) [facility] (no phone) 02-03-2020 07-21-2019 Emergency department no information (no phone) [facility] patient [facility] (no phone) 07-21-2019 07-21-2019 Emergency department no information DENNYS CHAUHAN (no [facility] - patient visit phone) [facility] 07-21-2019 (no phone) 05-11-2018 Emergency department no information no name no organization name - patient visit 05-11-2018 05-11-2018 Emergency department no information KONSTANTIN MCFARLANE (no [facility] - patient visit phone) [facility] 05-11-2018 (no phone) 05-06-2016 Emergency department no information no name no organization name - patient visit 05-06-2016 07-12-2018 Patient encounter no information no name no or ganization name 05-13-2018 Patient encounter no information no name no or ganization name 05-11-2018 Patient encounter no information no name no or ganization name 02-11-2018 Patient encounter no information no name no or ganization name 01-03-2018 Patient encounter no information no name no or ganization name 11-02-2017 Patient encounter no information no name no or ganization name 10-20-2017 Patient encounter no information no name no or ganization name 07-24-2017 Patient encounter no information no name no or ganization name - 07-24-2017 02-03-2020 Patient encounter no information MIGDALIA D HERNANDEZ DO (no [facility] procedure phone) [facility] (no phone) 01-30-2020 Patient encounter no information MIGDALIA D HERNANDEZ DO (no [facility] procedure phone) [facility] (no phone) 11-01-2019 Patient encounter no information MIGDALIA D HERNANDEZ DO (no [facility] procedure phone) [facility] (no phone) 10-29-2019 Patient encounter no information (no phone) MIGDALIA D [facility] [address] procedure [facility] (no phone) [facility] (no phone) 10-29-2019 [facility] (no phone) 10-29-2019 Patient encounter no information MIGDALIA D HERNANDEZ DO (no [facility] procedure phone) [facility] (no phone) 10-24-2019 Patient encounter no information (no phone) [facility] [address] procedure [facility] (no phone) 10-24-2019 10-24-2019 Patient encounter no information MIGDALIA HERNANDEZ DO (no [facility] - procedure phone) [facility] 10-24-2019 (no phone) 10-22-2019 Patient encounter no information MIGDALIA HERNANDEZ DO (no [facility] procedure phone) [facility] (no phone) 09-19-2019 Patient encounter no information no name no or ganization name procedure 07-29-2019 Patient encounter no information no name no or ganization name procedure 07-26-2019 Patient encounter no information no name no or ganization name procedure 07-19-2019 Patient encounter no information no name no or ganization name procedure 07-11-2019 Patient encounter no information no name no or ganization name procedure 06-23-2019 Patient encounter no information no name no or ganization name procedure 06-23-2019 Patient encounter no information no name no or ganization name procedure 06-07-2019 Patient encounter no information no name no or ganization name procedure 05-27-2019 Patient encounter no information no name no or ganization name procedure 02-08-2019 Patient encounter no information no name no or ganization name procedure 02-08-2019 Patient encounter no information no name no or ganization name procedure 01-10-2019 Patient encounter no information no name no or ganization name procedure 09-18-2018 Patient encounter no information no name no or ganization name procedure 09-12-2018 Patient encounter no information no name no or ganization name procedure 08-14-2018 Patient encounter no information no name no or ganization name procedure 08-05-2018 Patient encounter no information no name no or ganization name procedure 08-01-2018 Patient encounter no information no name no or ganization name - procedure 08-01-2018 08-01-2018 Patient encounter no information PRIMITIVO Rodriguez [facility] - procedure (no phone) [facility] 08-01-2018 (no phone) 07-27-2018 Patient encounter no information no name no or ganization name procedure 07-27-2018 Patient encounter no information PRIMITIVO Rodriguez [facility] procedure (no phone) [facility] (no phone) 07-12-2018 Patient encounter no information JESSICA MADISON MD (no [facility] [address] procedure phone) [facility] (no phone) 05-09-2018 Patient encounter no information no name no or ganization name procedure 11-02-2017 Patient encounter no information no name no or ganization name procedure Patient encounter no information no name no organizat ion name procedure 09-04-2019 Telephone encounter Other gastritis MARYLU MARTIN (n o [facility] without bleeding phone) (no phone) 07-29-2019 Telephone encounter no information ROSA ELENA ATKINS (no [facility] phone) (no phone) 12-24-2019 no information Encounter for other no name no organization name preprocedural examination 10-24-2019 no information Encounter for other no name no organization name preprocedural examination 10-23-2019 no information Encounter for other no name no organization name preprocedural examination no information Encounter for other no name (no phone) preprocedural examination Medical Equipment The data below is from unstructured sourcesNo Medical Equipment Information availableNo Medical Equipment Information availableNo Medical Equipment Information availableNo Medical Equipment Information a vailableNo Medical Equipment Information availableNo Medical Equipment Informati on availableNo Medical Equipment Information available Payers Normalized Payer Value [facility] no information Private Health Insurance no information ([id number]) Evaluation note Note Type Note Facility Evaluation No Assessments Information Available A [facility] note [facility] ([id number]) History general Narrative - Reported Note Type Note Facility History general Narrative - Reported Type Medical Childhood asthma History Medical anemia History Medical back trouble History Surgical tubes in ears History Surgical right breast biopsy 08/01/2018 History Hospitaliz asthma ation History [facility] ([id number]) Hospital Discharge instructions Note Type Note Facility Hospital Additional Instructions [facility] Dis[facility] Patient Instructions Via instructio Physician Instructions [facility] Plan of Care/Instructions/FU: Hospital Patient is to followup to discuss biopsies in 1-2 wee ks. Continue current ([id number]) medication. If any issues arise before then be seen at that time. Activity as Tolerated: Yes Discharge Diet: Regular Diet Care Plan Patient Instructions:: Patient is to fo llowup to discuss biopsies in 1-2 weeks. Continue currentmedication. If any issu es arise before then be seen at that time. Advance Directives Directive Response Recor ded Date/Time Advance Directives No 10:31pm Resuscitation Status Full Code 05/06/16 10:31pm Advance Directive Response Recorded Date/Time Advance Directives No No [email or web address] 4:35pm Health Care Power of Wafer Machine Operator No July 21, 2019 4:35pm Organ Donor Yes July 21, 2019 4:35pm Resuscitation Status Full Code July 21, 2019 4:35pm Advance Directive Response Recorded Date/Time Advance Directives No No vember 2018 4:35pm Health Care Power of Wafer Machine Operator No July 21, 2019 4:35pm Organ Donor Yes July 21, 2019 4:35pm Resuscitation Status Full Code October 24, 2019 3:26pm Advance Directive Response Recorded Date/Time Advance Directives No Ma 2019 2:10pm Health Care Power of Wafer Machine Operator No October 29, 2019 2:10pm Organ Donor Yes October 2:10pm Resuscitation Status Full Code October 29, 2019 2:10pm Advance Directive Response Recorded Date/Time Advance Directives No Ju 2019 10:42am Health Care Power of Wafer Machine Operator No January 30, 2020 10:42am Organ Donor Yes January 10:42am Resuscitation Status Full Code January 30, 2020 10:42am Discharge Instructions No hospital discharge instructions. Summary Purpose eClinicalWorks SubmissioneClinicalWorks SubmissioneClinicalWorks Submission Chief Complaint and Reason for Visit Chief Complaint Laceration Reason for Visit [id number] Additional Source Comments This clinical document has been generated using [employer] software that has been certified by the Office of the National Coordinator for Health Information Technology (ONC 15.99.04.3023.Diam.31.00.0.553810) and the National Committee for Supervisor Stitching Department (NCQA, as an eMeasure certified technology). FOR RECORDS PERTAINING TO PATIENTS WHO ARE OR HAVE BEEN ENROLLED IN A CHEMICAL D EPENDENCY/SUBSTANCE ABUSE PROGRAM, SOME INFORMATION MAY BE OMITTED. This clinica l summary was aggregated from multiple sources. Caution should be exercised in using it in the provision of clinical care. This summary normalizes information from multiple sources, and as a consequence, information in this document may ma terially change the coding, format and clinical context of patient data. In radha tion, data may be omitted in some cases. CLINICAL DECISIONS SHOULD BE BASED ON T HE PRIMARY CLINICAL RECORDS. [email or web address] provides no warranty or guara ntee of the accuracy or completeness of information in this document.The followi ng information is based on time limited clinical information UNRECOGNIZED CONTENT PROVIDED BELOW FOR UNRECOGNIZED SECTION MEDICAL (GENERAL) HISTORY Type Description Date Medical History Childhood asthma Medical History anemia Medical History back trouble Surgical History tubes in ears Hospitalization History asthma Type Description Date Medical History Childhood asthma Medical History anemia Medical History back trouble Surgical History tubes in ears Surgical History right breast biopsy 08/01/2018 Hospitalization History asthma UNRECOGNIZED CONTENT PROVIDED BELOW FOR UNRECOGNIZED SECTION REASON FOR VISIT sore throat since yesterday. denies cough. lucy, reports she gets strep on a regular basis...would like to be tested.Pt was in a supply closet when suppli es fell onto her from above. Reports no pain or injury. Needing a note for HR at work (via stephanie) stating she was evaluated. bhennennremtrefill requestReferra lStarted yesterday with vomiting and losses [id number]
--- OUTSIDE RECORDS SUMMARY | 2020-02-06 07:32 | XMS REPORT | Continuity of Care Document ---
Author Organization Unknown Address Unknown Phone Unavailable Allergies Active Description Code Type Severity Reaction Onset Reported/Identified Relationship to Patient Clinical Status Yes No Known Drug Allergies [id number] Drug Allergy Unknown N/A 10/24/2019 Medications There is no data. Problems Date Dx Coded Attending Type Code Diagnosis Diagnosed By 07/27/1505 MIGDALIA HERNANDEZ DO Ot Z01.818 ENCOUNTER FOR OTHER PREPROCEDURAL EXAMIN 07/27/1505 MIGDALIA HERNANDEZ DO, Ot Z11. 59 ENCOUNTER FOR SCREENING FOR OTHER VIRAL 05/21/2010 FLORESITA BONILLA APRN 462 PHARYNGITIS ACUTE [...] 780.79 FATIGUE 05/06/2016 EDY JAMES MD Ot K08. 9 DISORDER OF TEETH AND SUPPORTING STRUCTU 05/09/2016 EDY JAMES MD Ot K08. 9 DISORDER OF TEETH AND SUPPORTING STRUCTU 11/15/2017 [...] LUMP IN THE RIGHT BREAST, LO 05/11/2018 ASHOK KONSTANTIN Ot M25.512 PAIN IN LEFT SHOULDER 05/11/2018 BERNROBERTO KONSTANTIN Ot W20.8XXA OTH CAUSE OF STRIKE BY THROWN, PROJECTED 05/11/2018 BERNOT, KONSTANTIN Ot Y92.[address] HOSPITAL PLACE 05/11/2018 BERNOT, KONSTANTIN Ot Y99.0 CIVILIAN ACTIVITY DONE FOR INCOME OR PAY 05/14/2018 BERNOT, KONSTANTIN Ot M25.512 PAIN IN LEFT SHOULDER 05/14/2018 BERNOT, KONSTANTIN Ot W20.8XXA OTH CAUSE OF STRIKE BY THROWN, PROJECTED 05/14/2018 BERNOT KONSTANTIN Ot Y92.[address] HOSPITAL PLACE 05/14/2018 BERNOT, KONSTANTIN Ot Y99.0 CIVILIAN ACTIVITY DONE FOR INCOME OR PAY 05/31/2018 JESSICA MADISON MD Ot N63.13 UNSPECIFIED LUMP IN THE RIGHT BREAST, LO 06/14/2018 JESSICA MADISON MD N Ot N63.13 UNSPECIFIED LUMP IN THE RIGHT BREAST, LO 06/19/2018 JESSICA MADISON MD N Ot N63.13 UNSPECIFIED LUMP IN THE RIGHT BREAST, LO 06/19/2018 JESSICA MADISON MD N Ot N63.13 UNSPECIFIED LUMP IN THE RIGHT BREAST, LO 07/13/2018 JESSICA MADISON MD N Ot N63.13 UNSPECIFIED LUMP IN THE RIGHT BREAST, LO 07/16/2018 JESSICA MADISON MD N Ot N63.13 UNSPECIFIED LUMP IN THE RIGHT BREAST, LO 07/30/2018 PHONG MESSER, PRIMITIVO Contreras Ot Z01.818 ENCOUNTER FOR OTHER PREPROCEDURAL EXAMIN 08/01/2018 PRIMITIVO DARLING MD Ot D24.1 BENIGN NEOPLASM OF RIGHT BREAST 08/01/2018 PRIMITIVO DARLING MD Ot K21.9 GASTRO-ESOPHAGEAL REFLUX DISEASE WITHOUT 08/03/2018 DARLING MD, PRIMITIVO M Ot D24.1 BENIGN NEOPLASM OF RIGHT BREAST 08/03/2018 PHONG MESSER, PRIMITIVO M Ot K21.9 GASTRO-ESOPHAGEAL REFLUX DISEASE WITHOUT 08/08/2018 GRICELDA MESSER, JESSICA N Ot N63.13 UNSPECIFIED LUMP IN THE RIGHT BREAST, LO 08/16/2018 GRICELDA MESSER, JESSICA N Ot N63.13 UNSPECIFIED LUMP IN THE RIGHT BREAST, LO 08/16/2018 GRICELDA MESSER, JESSICA N Ot N63.13 UNSPECIFIED LUMP IN THE RIGHT BREAST, LO 08/16/2018 PHONG MESSER, PRIMITIVO M Ot Z01.818 ENCOUNTER FOR OTHER PREPROCEDURAL EXAMIN 08/17/2018 JESSICA MADISON MD N Ot N63.13 UNSPECIFIED LUMP IN THE RIGHT BREAST, LO 08/17/2018 GRICELDA MESSER, JESSICA N Ot N63.13 UNSPECIFIED LUMP IN THE RIGHT BREAST, LO 08/17/2018 PHONG MESSER, PRIMITIVO M Ot Z01.818 ENCOUNTER FOR OTHER PREPROCEDURAL EXAMIN 08/27/2018 GRICELDA MESSER JESSICA N Ot N63.13 UNSPECIFIED LUMP IN THE RIGHT BREAST, LO 08/27/2018 GRICELDA MESSER, JESSICA N Ot N63.13 UNSPECIFIED LUMP IN THE RIGHT BREAST, LO 08/27/2018 PHONG MESSER, PRIMITIVO M Ot Z01.818 ENCOUNTER FOR OTHER PREPROCEDURAL EXAMIN 07/21/2019 JESSICA MADISON MD N Ot N63.13 UNSPECIFIED LUMP IN THE RIGHT BREAST, LO 07/21/2019 GRICELDA MESSER, JESSICA N Ot N63.13 UNSPECIFIED LUMP IN THE RIGHT BREAST, LO 07/21/2019 PHONG MESSER, PRIMITIVO M Ot Z01.818 ENCOUNTER FOR OTHER PREPROCEDURAL EXAMIN 07/21/2019 JESSICA MADISON MD N Ot N63.13 UNSPECIFIED LUMP IN THE RIGHT BREAST, LO 07/21/2019 JESSICA MADISON MD N Ot N63.13 UNSPECIFIED LUMP IN THE RIGHT BREAST, LO 07/21/2019 PHONG MESSER, PRIMITIVO M Ot Z01.818 ENCOUNTER FOR OTHER PREPROCEDURAL EXAMIN 07/21/2019 DENNYS LUJAN APRN Ot K21 .9 GASTRO-ESOPHAGEAL REFLUX DISEASE WITHOUT 07/21/2019 DENNYS LUJAN SECURITY TRAINER Ot M79.644 PAIN IN RIGHT FINGER(S) 07/21/2019 DENNYS LUJAN SECURITY TRAINER Ot S61.216A LAC W/O FB OF R LITTLE FINGER W/O DAMAGE 07/21/2019 DENNYS LUJAN SECURITY TRAINER Ot W23.1XXA CAUGHT, CRUSH, JAMMED, OR PINCHED BETW S 07/21/2019 DENNYS LUJAN SECURITY TRAINER Ot Z23 ENCOUNTER FOR IMMUNIZATION 08/27/2019 GRICELDA MESSER, JESSICA Bar Ot N63.13 UNSPECIFIED LUMP IN THE RIGHT BREAST, LO 08/27/2019 GRICELDA MESSER, JESSICA Bar Ot N63.13 UNSPECIFIED LUMP IN THE RIGHT BREAST, LO 08/27/2019 PHONG MESSER, PRIMITIVO Contreras Ot Z01.818 ENCOUNTER FOR OTHER PREPROCEDURAL EXAMIN 10/24/2019 [place] DO, MIGDALIA Rodriguez Ot Z01.818 ENCOUNTER FOR OTHER PREPROCEDURAL EXAMIN 10/24/2019 HERNANDEZ DO, MIGDALIA D Ot Z01.818 ENCOUNTER FOR OTHER PREPROCEDURAL EXAMIN 10/29/2019 HERNANDEZ DO, MIGDALIA D Ot K21. 9 GASTRO-ESOPHAGEAL REFLUX DISEASE WITHOUT 10/29/2019 HERNANDEZ DO, MIGDALIA D Ot K29. 50 UNSPECIFIED CHRONIC GASTRITIS WITHOUT BL 10/29/2019 HERNANDEZ DO, MIGDALIA D Ot K44. 9 DIAPHRAGMATIC HERNIA WITHOUT OBSTRUCTION 10/31/2019 HERNANDEZ DO, MIGDALIA D Ot K21. 9 GASTRO-ESOPHAGEAL REFLUX DISEASE WITHOUT 10/31/2019 HERNANDEZ DO, MIGDALIA D Ot K29. 50 UNSPECIFIED CHRONIC GASTRITIS WITHOUT BL 10/31/2019 HERNANDEZ DO, MIGDALIA D Ot K44. 9 DIAPHRAGMATIC HERNIA WITHOUT OBSTRUCTION 11/06/2019 HERNANDEZ DO, MIGDALIA D Ot R12 HEARTBURN 11/26/2019 HERNANDEZ DO, MIGDALIA D Ot N20. 0 CALCULUS OF KIDNEY 11/26/2019 HERNANDEZ DO, MIGDALIA D Ot R12 HEARTBURN 12/24/2019 GRICELDA MESSER, JESSICA Bar Ot N63.13 UNSPECIFIED LUMP IN THE RIGHT BREAST, LO 12/24/2019 PHONG MESSER, PRIMITIVO Contreras Ot Z01.818 ENCOUNTER FOR OTHER PREPROCEDURAL EXAMIN 12/24/2019 HERNANDEZ DO, MIGDALIA D Ot R12 HEARTBURN 12/24/2019 [place] DO, MIGDALIA D Ot N20. 0 CALCULUS OF KIDNEY 12/24/2019 HERNANDEZ DO, MIGDALIA D Ot R12 HEARTBURN 12/24/2019 HERNANDEZ DO, MIGDALIA D Ot N20. 0 CALCULUS OF KIDNEY 12/24/2019 HERNANDEZ DO, MIGDALIA D Ot R12 HEARTBURN 12/24/2019 GRICELDA MESSER, JESSICA Bar Ot N63.13 UNSPECIFIED LUMP IN THE RIGHT BREAST, LO 12/24/2019 PHONG MESSER, PRIMITIVO Contreras Ot Z01.818 ENCOUNTER FOR OTHER PREPROCEDURAL EXAMIN 12/24/2019 HERNANDEZ DO, MIGDALIA D Ot R12 HEARTBURN 12/24/2019 HERNANDEZ DO, MIGDALIA D Ot N20. 0 CALCULUS OF KIDNEY 12/24/2019 [place] DO, MIGDALIA D Ot R12 HEARTBURN Procedures Code [place] [address] ROUT INE VENIPUNCTURE 08/10/2012 26998 A1C (IN-HOUSE) 08/10/2012 74076 CBC 08/10/2012 36643 INSU LYNDA LEVEL 08/11/2012 35990 STRE P A (IN-HOUSE) 07/05/2013 96123 MONO TEST (IN-HOUSE) 10/25/2013 77171 TSH 10/25/2013 70450 CBC 10/25/2013 81033 CMP 10/25/2013 Results Test Result Range Drug Screen + ETOH - 08/01/16 11:23 Lead Manufacturing Engineer Nhi Dickens Donor ID By Employer Representitive Ethanol, Urine <10.00 mg/dL 20.00-80.00 Location [facility] Reason For Test Random Temperature In Range YES Deg F 90.00-100 .00 Urine Amphetamines NEGATIVE Urine Barbiturates NEGATIVE Urine Benzodiazepines NEGATIVE Urine Cocaine NEGATIVE Urine MDMA NEGATIVE Urine Methadone NEGATIVE Urine Methamphetamines NEGATIVE Urine Opiates NEGATIVE Urine Oxycodone NEGATIVE Urine PCP NEGATIVE Urine THC Metabolite NEGATIVE CULTURE, GENITAL - 10/20/17 11:57 CULTURE, GENITAL SEE NOTE NRG SUREPATH PAP RFX HPV mRNA E6/E7 - 11:57 CLINICAL INFORMATION: NRG LMP: [id number] NRG PREV. PAP: NL NRG PREV. BX: NONE NRG SOURCE: Cervix NRG STATEMENT OF ADEQUACY: NRG INTERPRETATION/RESULT: NRG UROLOGIST: NRG REVIEW UROLOGIST: NRG INFECTION: NRG Urine beta human chorionic gonadotropin (hCG) measurement - 08/01/18 07:20 Urine beta human chorionic gonadotropin (hCG) measurem ent NEGATIVE NEGATIVE Methicillin resistant Staphylococcus aur eus (MRSA) screening culture - 08/01/18 09:40 Methicillin resistant Staphylococcus aureus (MRSA) scr eening culture NEG NRG CULTURE, URINE - 08/05/18 13:38 CULTURE, URINE, ROUTINE SEE NOTE NRG TEST, SERUM (QUAL) - 07/11/19 15:57 HCG, TOTAL, QL NEGATIVE See Note: CULTURE, VIRAL (HSV W/TYPING) - 07/26/19 19:00 SOURCE: VULVA NRG HSV CULTURE: NOT ISOLATED NRG GC/CHLAMYDIA (SWAB OR URINE)-RAPID - 19:00 CHLAMYDIA TRACHOMATIS RNA, TMA NOT DETECTED NOT DETECTED NEISSERIA GONORRHOEAE RNA, TMA NOT DETECTED NOT DETECTED COMMENT NRG CULTURE, GENITAL - 07/26/19 19:00 CULTURE, GENITAL SEE NOTE NRG Coronavirus SARS-CoV-2 SO 2018 - 0 08:55 Coronavirus Ab [Units/volume] in Serum Negative Negative Encounters ACCT No. Visit Date/Time Discharge Status Pt. Type Provider Facility Loc./Unit Complaint [id number] 09/21/2017 16:23:00 09/21/2017 23:59: 00 DIS Outpatient TAVO NELSON [id number] 08/24/2017 09:16:00 08/24/2017 23:59: 00 DIS Outpatient TAVO NELSON [id number] 07/24/2017 13:30:00 07/24/2017 23:59: 00 DIS Outpatient TAVO NELSON [id number] 08/01/2016 11:11:00 08/01/2016 23:59: 00 DIS Outpatient UNLISTED, UNLISTED [id number] 02/03/2020 05:44:00 020 15:06:00 DIS Outpatient MIGDALIA HERNANDEZ DO [facility] PREOP BILIARY DYSKINESIA [id number] 11/01/2019 09:28:00 020 23:59:59 CLS Outpatient MIGDALIA HERNANDEZ DO [facility] CARD HEARTBURN [id number] 10/29/2019 06:35:00 23:59:59 CLS Outpatient HERNANDEZ MIGDALIA AUSTIN [facility] RAD HEARTBURN [id number] 10/29/2019 14:03:00 15:57:00 DIS Outpatient MIGDALIA HERNANDEZ DO [facility] ENDO EPIGASTRIC ABD PAIN/LAURYN D [id number] 10/24/2019 15:32:00 15:37:00 DIS Outpatient MIGDALIA HERNANDEZ DO [facility] PREOP EGD [id number] 07/21/2019 16:33:00 17:58:00 DIS Emergency DENNYS LUJAN APRN [facility] ER R HAND LAC [id number] 08/01/2018 09:04:00 14:35:00 DIS Outpatient PRIMITIVO DARLING MD [facility] SDC PALPABLE RIGHT BREAST LUMP [id number] 07/27/2018 05:42:00 018 23:59:59 CLS Outpatient PRIMITIVO DARLING MD [facility] PREOP PALPABLE RIGHT BREAST LUMP [id number] 07/12/2018 10:45:00 018 23:59:59 CLS Outpatient JESSICA MADISON MD [facility] RAD LUMP OF RIGHT BREAST N6 3.10 [id number] 05/11/2018 17:30:00 018 19:21:00 DIS Emergency KONSTANTIN PULIDO [facility] ER HEAD,SHOULDER,BACK PAIN WC [id number] 05/09/2018 08:49:00 018 23:59:59 CLS Preadmit JESSICA MADISON MD [facility] RAD LUMP OF RIGHT BREAST [id number] 11/02/2017 10:23:00 018 23:59:59 CLS Outpatient JESSICA MADISON MD [facility] RAD LUMP OF RT BREAST [id number] 05/06/2016 22:24:00 016 23:03:00 DIS Emergency EDY JAMES MD [facility] ER R TOOTH PAIN [id number] 03/23/2013 13:00:00 013 23:59:59 CLS Outpatient [id number] 02/06/2020 08:40:00 P EN Preadmit MIGDALIA HERNANDEZ DO [facility] SDC BILIARY DYSKINESIA [id number] 10/25/2013 08:46:00 10/25/2013 23:59: 59 CLS Outpatient DOV BALDERAS MD [id number] 07/05/2013 13:34:00 07/05/2013 23:59: 59 CLS Outpatient DOV BALDERAS MD [id number] 08/10/2012 08:14:00 08/10/2012 23:59: 59 CLS Outpatient FLORESITA BONILLA APRN [id number] 09/19/2019 15:00:00 09/19/2019 23:59:5 9 CLS Outpatient MARYLU MARTIN APRN [facility] [id number] 07/26/2019 15:40:00 Document Registration [id number] 07/11/2019 15:40:00 Document Registration [id number] 08/05/2018 13:20:00 Document Registration [id number] 10/20/2017 11:00:00 Document Registration
[2020-02-06] MEDS ORDERED: LACTATED RINGERS 1,000 ML IV PRN (07:38)
[2020-02-06] MEDS ORDERED: ceFAZolin INJECTION 1,000 MG in WATER (STERILE) FOR INJECTION 10 ML IV ONE (07:45)
[2020-02-06] MEDS ORDERED: IOPAMIDOL 61% 30 ML (ISOVUE 300) VIAL ONE (08:10)
[2020-02-06] MEDS ORDERED: BUP/EPI 0.5% 1:200,000 (SENSORCAINE) 30 ML VIAL ONE (08:11)
[2020-02-06 08:22] LABS: BASOPHILS % (AUTO) 0 % (0-10); EOSINOPHILS # (AUTO) 0.2 10^3/uL (0.0-0.3); EOSINOPHILS % (AUTO) 3 % (0-10); HEMATOCRIT 37 % (35-52); HEMOGLOBIN 12.1 G/DL (11.5-16.0); LYMPHOCYTES # (AUTO) 1.7 X 10^3 (1.0-4.0); LYMPHOCYTES % (AUTO) 30 % (12-44); MEAN CORPUSCULAR HEMOGLOBIN 27 PG (25-34); MEAN CORPUSCULAR HGB CONC 32 G/DL (32-36); MEAN CORPUSCULAR VOLUME 84 FL (80-99); MEAN PLATELET VOLUME 12.3 FL (7.4-10.4); MONOCYTES # (AUTO) 0.6 X 10^3 (0.0-1.0); MONOCYTES % (AUTO) 10 % (0-12); NEUTROPHILS # (AUTO) 3.2 X 10^3 (1.8-7.8); NEUTROPHILS % (AUTO) 57 % (42-75); PLATELET COUNT 173 10^3/uL (130-400); WHITE BLOOD COUNT 5.6 10^3/uL (4.3-11.0)
[2020-02-06] MEDS ORDERED: FAMOTIDINE 20MG/2ML IV (PEPCID) ONE (08:58)
[2020-02-06] MEDS ORDERED: fentaNYL INJECTION 100 MCG/2 ML AMP ONE (09:12)
[2020-02-06] MEDS ORDERED: MIDAZOLAM 2 MG/2 ML (VERSED) VIAL ONE (09:12)
[2020-02-06] MEDS ORDERED: FAMOTIDINE 20MG/2ML IV (PEPCID) IVP ONE (09:15)
--- NOTE | 2020-02-06 09:27 | Progress Note-Pre Operative ---
Pre-Operative Progress Note H&P Reviewed The H&P was reviewed, patient examined and no changes noted. Date Seen by Provider: Feb 06, 2020 Time Seen by Provider: : Date H&P Reviewed: Feb 06, 2020 Time H&P Reviewed: : Pre-Operative Diagnosis: epigastric abd pain, biliary dyskinesia MIGDALIA HERNANDEZ DO Feb 06, 2020 09:27
[2020-02-06] MEDS ORDERED: ROCURONIUM 10 MG/ML 5 ML SYRINGE IV ONE (10:06)
[2020-02-06] MEDS ORDERED: LIDOCAINE PF 2% 5 ML (XYLOCAINE) VIAL ONE (10:06)
[2020-02-06] MEDS ORDERED: GLYCOPYRROLATE 0.2 MG/ML (ROBINUL) 2 ML VIAL ONE (10:06)
[2020-02-06] MEDS ORDERED: proPOfol 200 MG/20 ML (DIPRIVAN) VIAL IV ONE (10:06)
[2020-02-06] MEDS ORDERED: DEXAMETHASONE 10 MG/ML (DECADRON) 1 ML VIAL ONE (10:06)
[2020-02-06] MEDS ORDERED: SEVOFLURANE (ULTANE) 15 ML INHAL SOLN ONE (10:06)
[2020-02-06] MEDS ORDERED: ONDANSETRON 4 MG/2 ML (SDV) Z0FRAN ONE (10:06)
[2020-02-06] MEDS ORDERED: NEOSTIGMINE 3 MG/3 ML VIAL ONE (10:06)
--- NOTE | 2020-02-06 10:11 | Progress Note-Post Operative ---
Post-Operative Progess Note Surgeon (s)/Boat Camp Operator (s) Surgeon MIGDALIA HERNANDEZ DO Boat Camp Operator: Dr. Velez to assist in retraction dissection and closure Pre-Operative Diagnosis epigastric abd pain, biliary dyskinesia Post-Operative Diagnosis same Procedure & Operative Findings Date of Procedure 02/06/20 Procedure Performed/Findings PROCEDURE: Laparoscopic cholecystectomy with intraoperative cholangiogram. COMPLICATIONS: None. PROCEDURE: The patient was taken to the operating suite and was prepped and draped in sterile fashion. A surgical pause was performed. Just inferior to the umbilicus, a 12 mm incision was made. Dissection was taken down to the fascia, which was then scored and grasped with a Therese and the abdomen was then entered. A 0 Vicryl suture was placed in a krvvgg-on-bgaes fashion and a Garvey trocar was placed and secured. Pneumoperitoneum was achieved. A 5mm trochar place in the subxyphoid and 2 in the right upper quadrant. The gallbladder was then grasped and elevated. The cystic duct, and cystic artery were then dissected out. Clip was placed on the distal portion of the cystic duct which was then partially transected. An arrow catheter was inserted into the duct. The cholangiogram was then performed. No filing defects and contrast made its way into the duodenum. Catheter removed. Clips were placed on proximal portion of the cystic duct and then the duct was then transected. Clips were placed along the proximal and distal portion of the cystic artery which was then transected. Hook cautery was used to dissect the gallbladder from the gallbladder fossa achieving hemostasis. The gallbladder was placed in an Endobag and removed through the 12 mm trocar site. The abdomen was then reinspected. Copious amounts of irrigation were used to irrigate the abdomen and there were no signs of active bleeding. Hemostasis had been achieved. The 12 mm fascial defect was then closed with 0 Vicryl suture that had been placed in a [id number]-zw-fanvh fashion. The abdomen was then desufflated, the trocars were removed. The abdomen was then washed and dried. The skin was then closed using 4-0 Monocryl in a subcuticular fashion. The abdomen was washed and dried and Skin Affix was place over incisions. Patient tolerated the procedure well without any complications and was taken to the recovery room in stable condition. Anesthesia Type gen Estimated Blood Loss Estimated blood loss (mL): min Specimens/Packing Specimens Removed gallbladder MIGDALIA HERNANDEZ DO Feb 06, 2020 10:11
[2020-02-06] MEDS ORDERED: DOCU-143 PO (10:12)
[2020-02-06] MEDS ORDERED: HYDR-4226 PO (10:12)
--- NOTE | 2020-02-06 10:13 | Discharge Inst-Simple/Standard ---
Discharge Inst-Standard Discharge Medications New, Converted or Re-Newed RX: RX on Chart Patient Instructions/Follow Up Plan of Care/Instructions/FU: 2 weeks Gus Activity as Tolerated: No Discharge Diet: Regular Diet Other Inst to Patient Follow up Appt: Make appointment for 2 weeks. Instructions: No lifting greater than 10 pounds. No strenuous activity. May shower in 24 hours, no tub bath or soaking. Use incentive spirometer at home as directed. No Smoking Skin/Wound Care: You have special glue over incision, it will fall off on it's own. Symptoms to Report: Appetite Changes, Extremity Discoloration, Numbness/Tingling, Swelling Increased, Bleeding Excessive, Eyesight Changes, Pain Increased, Urine Color Change, Constipation(Persistent), Fever over 101 degree F, Pain/Pressure in ches t, Urinating Difficulty, Cough Up/Vomit Blood, Heart Beat Irreg/Pounding, Pain/Pressure in jaw, Vaginal Bleeding Increase, Cramps in feet or legs, Lightheadedness, Pain/Pressure in shoulder, Diarrhea(Persistent), Memory Changes Suddenly, Questions/Concerns, Weight gain consecutive days, Dizziness/Fainting, Nausea/Vomiting, Shortness of Breath, Weight gain over 2 pounds. If eyes or skin turn yellow notify physician. If questions or concerns contact your physician Or seek help at emergency department. MIGDALIA HERNANDEZ DO Feb 06, 2020 10:13
[2020-02-06] MEDS ORDERED: ONDANSETRON 4 MG/2 ML (SDV) Z0FRAN IVP PRN (10:30)
[2020-02-06] MEDS ORDERED: HYDROmorphone 2 MG/ML VIAL (DILAUDID) IV ONE (10:30)
--- NOTE | 2020-02-06 11:02 | Diagnostic Imaging Report ---
INDICATION: Laparoscopic cholangiogram. COMPARISON: None Total fluoroscopy time: 10.1 seconds Total number of fluoroscopic images saved: 54 FINDINGS: Multiple intraoperative image intensifier and digital subtraction views of the right upper abdominal quadrant were obtained during laparoscopic cholangiogram. Images provided show contrast filling the intra and extrahepatic biliary ductal systems. Contrast empties into the small bowel, as expected. No distinct intraluminal filling defects are seen. Please note, interpreting radiologist was not present during the procedure. IMPRESSION: 1. Intraoperative cholangiogram as above. Dictated by: Dictated on workstation # [id number]
[2020-02-06] MEDS ORDERED: HYDROcodone/APAP 5 MG/325 MG (LORTAB) TAB ONE (12:09)
[2020-02-06] MEDS ORDERED: HYDROcodone/APAP 5 MG/325 MG (LORTAB) TAB PO ONE (12:15)
--- NOTE | 2020-02-06 23:48 | Anesthesia-General Post-Op ---
General Patient Condition Mental Status/LOC: Same as Preop Cardiovascular: Satisfactory Nausea/Vomiting: Absent Respiratory: Satisfactory Pain: Controlled Complications: Absent Post Op Complications Complications None Follow Up Care/Instructions Patient Instructions None needed. Anesthesia/Patient Condition Patient Condition Patient is doing well, no complaints, stable vital signs, no apparent adverse anesthesia problems. No complications reported per nursing. 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
== END 2020-02-06 12:45 | disposition home or self-care (01) ==
LOC: SDC 07:24
PROVIDERS: ATTEND Surgery
DX: K81.1 Chronic cholecystitis (principal); K82.8 Other specified diseases of gallbladder; K21.9 Gastro-esophageal reflux disease without esophagitis; Z79.899 Other long term (current) drug therapy; Z82.3 Family history of stroke; Z82.49 Family history of ischemic heart disease and other diseases of the circulatory system; Z80.9 Family history of malignant neoplasm, unspecified
CPT/HCPCS: 36415; 76000; 84703; 85025; 87081; 88304; 94664

== ENCOUNTER 2021-03-05 06:52 | Outpatient (CLI) | payer OTHER ==
[~2021-03-05] VITALS: Ht 165.1 cm; Wt 82.2 kg
[~2021-03-05 06:52] MED LIST changes: +DOCU-143 PO; +HYDR-4226 PO; -PANT40TA3 PO; +PANT40TA52 PO
[2021-03-08] MEDS ORDERED: OMEP20TA33 PO (14:25)
== END 2021-03-08 14:53 | disposition home or self-care (01) ==
LOC: PREOP 06:52
PROVIDERS: ATTEND Obstetrics & Gynecology
DX: Z01.818 Encounter for other preprocedural examination (principal)

== ENCOUNTER 2021-03-12 12:32 | Day surgery (SDC) | payer OTHER ==
[2021-03-12] VITALS (10 sets, daily range): BP systolic 103–137; BP diastolic 55–83
[~2021-03-12] VITALS: Ht 165.1 cm; Wt 82.2 kg
[~2021-03-12 12:32] MED LIST changes: +OMEP20TA33 PO
[2021-03-12] MEDS ORDERED: ceFAZolin INJECTION 1,000 MG in WATER (STERILE) FOR INJECTION 10 ML IV ONE (13:00)
[2021-03-12] MEDS: LACTATED RINGERS 1,000 ML IV PRN ×2 (13:11→16:04)
[2021-03-12 13:23] LABS: BASOPHILS % (AUTO) 1 % (0-10); EOSINOPHILS # (AUTO) 0.3 10^3/uL (0.0-0.3); EOSINOPHILS % (AUTO) 5 % (0-10); HEMATOCRIT 35 % (35-52); HEMOGLOBIN 10.9 g/dL (11.5-16.0); LYMPHOCYTES # (AUTO) 1.4 10^3/uL (1.0-4.0); LYMPHOCYTES % (AUTO) 24 % (12-44); MEAN CORPUSCULAR HEMOGLOBIN 25 pg (25-34); MEAN CORPUSCULAR HGB CONC 31 g/dL (32-36); MEAN CORPUSCULAR VOLUME 81 fL (80-99); MEAN PLATELET VOLUME 12.1 fL (9.0-12.2); MONOCYTES # (AUTO) 0.6 10^3/uL (0.0-1.0); MONOCYTES % (AUTO) 10 % (0-12); NEUTROPHILS # (AUTO) 3.5 10^3/uL (1.8-7.8); NEUTROPHILS % (AUTO) 61 % (42-75); PLATELET COUNT 242 10^3/uL (130-400); WHITE BLOOD COUNT 5.7 10^3/uL (4.3-11.0)
--- NOTE | 2021-03-12 14:43 | Progress Note-Post Operative ---
Post-Operative Progess Note Surgeon (s)/Surgery Center Administrator (s) Surgeon SHAHAB EDWARDS MD Surgery Center Administrator: None Pre-Operative Diagnosis Dysfunctional uterine bleeding/intrauterine mass Post-Operative Diagnosis Same with pathology pending Procedure & Operative Findings Date of Procedure 03/12/21 Procedure Performed/Findings Hysteroscopy with directed biopsy and D&C Anesthesia Type GETA Estimated Blood Loss Estimated blood loss (mL): Minimal Specimens/Packing Specimens Removed Directed uterine biopsy and endometrial curettings SHAHAB EDWARDS MD Mar 12, 2021 14:43
--- NOTE | 2021-03-12 14:43 | Progress Note-Pre Operative ---
Pre-Operative Progress Note H&P Reviewed The H&P was reviewed, patient examined and no changes noted. Date Seen by Provider: Mar 12, 2021 Time Seen by Provider: 14:43 Date H&P Reviewed: Mar 12, 2021 Time H&P Reviewed: 14:43 Pre-Operative Diagnosis: Dysfunctional uterine bleeding/intrauterine mass SHAHAB EDWARDS MD Mar 12, 2021 14:43
[2021-03-12] MEDS ORDERED: fentaNYL INJ 100 MCG/2 ML AMP IVP PRN (14:45)
[2021-03-12] MEDS ORDERED: IBUP-1780 PO (14:45)
[2021-03-12] MEDS ORDERED: KETOROLAC 30 MG/ML VIAL IVP ONE (14:45)
[2021-03-12] MEDS ORDERED: ONDANSETRON 4 MG/2 ML (SDV) Z0FRAN IVP PRN ×2 (14:45→16:00)
[2021-03-12] MEDS ORDERED: oxyCODONE/APAP 5/325MG (PERCOCET 5) TABLET PO PRN (14:45)
[2021-03-12] MEDS ORDERED: D5 LR IV SOLUTION 1,000 ML IV SCH (14:45)
--- NOTE | 2021-03-12 14:46 | Discharge Inst-Surgical ---
Discharge Inst-Surgical Depart Medication/Instructions New, Converted or Re-Newed RX: Transmitted to Pharmacy Consults/Follow Up Patient Instructions: As directed Orders & Referrals Follow Up Appt: Call to make follow up appt. for patient in 2 weeks. Activity: Rest for 24 hours, than as tolerated. Diet As tolerated-Clear Liquids only if nauseated. Tomorrow, may shower or tub bathe as desired. No driving for 24 hours, no alcoholic beverages for 24 hours, and nothing per vagina (no tampons, douching, or intercoarse) for 2 weeks. Patient to return to the clinic as soon as possible for: Temperature greater than 101F, Severe Pain, Foul discharge from incision or vagina, Excessive Bleeding (more than a period). Activity Activity as Tolerated: No Diet Discharge Diet: No Restrictions SHAHAB EDWARDS MD Mar 12, 2021 14:46
[2021-03-12] MEDS ORDERED: LIDOCAINE PF 2% 5 ML (XYLOCAINE) VIAL ONE (14:57)
[2021-03-12] MEDS ORDERED: proPOfol 200 MG/20 ML (DIPRIVAN) VIAL IV ONE (14:57)
[2021-03-12] MEDS ORDERED: fentaNYL INJ 100 MCG/2 ML AMP ONE (14:57)
[2021-03-12] MEDS ORDERED: ONDANSETRON 4 MG/2 ML (SDV) Z0FRAN ONE (14:57)
[2021-03-12] MEDS ORDERED: MIDAZOLAM 2 MG/2 ML (VERSED) VIAL ONE (14:57)
[2021-03-12] MEDS ORDERED: SEVOFLURANE (ULTANE) 15 ML INHAL SOLN ONE (15:59)
--- NOTE | 2021-03-12 15:59 | Anesthesia-General Post-Op ---
General Patient Condition Mental Status/LOC: Same as Preop Cardiovascular: Satisfactory Nausea/Vomiting: Absent Respiratory: Satisfactory Pain: Controlled Complications: Absent Post Op Complications Complications None Follow Up Care/Instructions Patient Instructions None needed. Anesthesia/Patient Condition Patient Condition Patient is doing well, no complaints, stable vital signs, no apparent adverse anesthesia problems. HARI CARTAGENA DO Mar 12, 2021 15:59
[2021-03-12] MEDS ORDERED: morphine INJ 10 MG/ML 1ML (SYR OR VIAL) IVP ONE (16:00)
--- NOTE | 2021-03-12 19:07 | OPERATIVE REPORT ---
DATE OF SERVICE: 03/12/2021 PREOPERATIVE DIAGNOSES: Dysfunctional uterine bleeding and ultrasound finding of intrauterine mass. POSTOPERATIVE DIAGNOSES: Dysfunctional uterine bleeding and ultrasound finding of intrauterine mass with pathology pending. OPERATIVE PROCEDURE: Hysteroscopy with directed biopsy and D and C. OPERATIVE DESCRIPTION: With the patient in a supine position under satisfactory general anesthesia, she was repositioned in a dorsal lithotomy position in the [facility] and then prepped and draped in the usual fashion for vaginal surgery. A weighted speculum placed in the posterior fornix of vagina, cervix exposed and grasped anteriorly with a single tooth tenaculum. Uterus was sounded to 9.5 cm with uterine sound. The cervix was then serially dilated with Demario dilators to accommodate a hysteroscope, which was introduced and using LR as a distending medium, the endometrial cavity was examined. There was a polypoid mass just distal to the opening of the right fallopian tube. There were several polypoid eminences on the posterior intrauterine floor. The mass near the right tubal ostia was grasped and removed directly and tour sales representative biopsies were taken from the polypoid masses on the posterior uterine floor as well. The hysteroscope was then removed. The endometrial cavity sharply curettaged in all four quadrants with removal. An additional aliquot of tissue was sent to pathology and labeled as endometrial curettings. The hysteroscope was reintroduced and endometrial cavity was examined. There was no remaining abnormal pathology. There was no significant bleeding. The hysteroscope was removed as was the tenaculum. There was no bleeding from the puncture site. There was minimal oozing from the cervical os. With sponge and needle counts correct, hemostasis assured and blood loss minimal, the patient was uneventfully awakened from her general anesthesia and transferred to the recovery room in stable condition with plans for discharge home PAR. Job ID: [id number] DocumentID: [id number] Dictated Date: 03/12/2021 15:44:24 Poiser Date: 03/12/2021 19:05:48 Dictated By: SHAHAB EDWARDS MD
== END 2021-03-12 17:48 | disposition home or self-care (01) ==
LOC: SDC 12:32
PROVIDERS: ATTEND Obstetrics & Gynecology
DX: N85.8 Other specified noninflammatory disorders of uterus (principal); N97.9 Female infertility, unspecified; N89.8 Other specified noninflammatory disorders of vagina; J45.909 Unspecified asthma, uncomplicated; K21.9 Gastro-esophageal reflux disease without esophagitis; E04.9 Nontoxic goiter, unspecified; Z79.899 Other long term (current) drug therapy
CPT/HCPCS: 36415; 84703; 85025; 87081; 88305

== ENCOUNTER 2022-09-20 16:40 | Outpatient (CLI) | payer OTHER ==
[~2022-09-20] VITALS: Ht 165.1 cm; Wt 88.8 kg
[~2022-09-20 16:40] MED LIST changes: +IBUP-1780 PO; +OMEP20TA56 PO; -OMEP20TA7 PO
[2022-09-20] MEDS ORDERED: OXYM15MI4 NS (17:00)
[2022-09-20] MEDS ORDERED: PNV-9 PO (17:00)
[2022-09-20] MEDS ORDERED: LORA5TAB9 PO (17:00)
[2022-09-20 17:02] VITALS: BP 135/73
[2022-09-20 17:02] LABS: BILIRUBIN,URINE NEGATIVE (NEGATIVE); CLARITY,URINE CLOUDY; COLOR,URINE YELLOW; GLUCOSE, URINE (UA) NEGATIVE (NEGATIVE); KETONES,URINE NEGATIVE (NEGATIVE); LEUKOCYTE ESTERASE ,URINE NEGATIVE (NEGATIVE); NITRITE,URINE NEGATIVE (NEGATIVE); PROTEIN,URINE TRACE (NEGATIVE)
[2022-09-20 17:32] LABS: BACTERIA,URINE MODERATE /HPF; WBC,URINE RARE /HPF
[2022-09-20] MEDS ORDERED: CEPH250C PO (17:57)
[2022-09-20] MEDS ORDERED: CEPHALEXIN 250 MG (KEFLEX) CAP PO NR (18:00)
--- NOTE | 2022-09-21 07:59 | Physician Query-Final Dx ---
Clinic Account Progress/Dx Physician Query: Please give diagnosis Please include # weeks gestation Date of Service Sep 20, 2022 at 16:40 STU,AugSep 21, 2022 07:59
== END 2022-09-20 18:35 | disposition home or self-care (01) ==
LOC: WSo 16:40 → LDRP 16:41 → WSo 18:35
PROVIDERS: ATTEND Family Medicine
DX: Z34.92 Encounter for supervision of normal pregnancy, unspecified, second trimester (principal); Z3A.27 27 weeks gestation of pregnancy
CPT/HCPCS: 81000; 87088; G0463; 99214

== ENCOUNTER 2022-11-17 14:56 | Emergency (ER) | payer OTHER ==
[~2022-11-17 14:56] MED LIST changes: +CEPH250C PO; +LORA5TAB9 PO; +OXYM15MI4 NS; +PNV-9 PO
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
[2022-11-17 15:43] LABS: BASOPHILS % (AUTO) 0 % (0-10); EOSINOPHILS % (AUTO) 1 % (0-10); MONOCYTES % (AUTO) 7 % (0-12); NEUTROPHILS # (AUTO) 9.5 10^3/uL (1.8-7.8)
[2022-11-17 15:45] LABS: EOSINOPHILS # (AUTO) 0.1 10^3/uL (0.0-0.3); HEMATOCRIT 29 % (35-52); LYMPHOCYTES # (AUTO) 1.9 10^3/uL (1.0-4.0); LYMPHOCYTES % (AUTO) 15 % (12-44); MEAN CORPUSCULAR HEMOGLOBIN 23 pg (25-34); MEAN CORPUSCULAR HGB CONC 31 g/dL (32-36); MEAN CORPUSCULAR VOLUME 74 fL (80-99); MEAN PLATELET VOLUME 13.1 fL (9.0-12.2); MONOCYTES # (AUTO) 0.9 10^3/uL (0.0-1.0); NEUTROPHILS % (AUTO) 75 % (42-75); PLATELET COUNT 161 10^3/uL (130-400); WHITE BLOOD COUNT 12.7 10^3/uL (4.3-11.0)
[2022-11-17] MEDS ORDERED: ONDANSETRON 4 MG/2 ML (SDV) Z0FRAN IVP ONE (15:45)
[2022-11-17 15:48] LABS: SMEAR SCAN COMMENT YES
--- NOTE | 2022-11-17 16:27 | Diagnostic Imaging Report ---
INDICATION: Trauma during . FINDINGS: Limited obstetrical ultrasound reveals watson intrauterine fetus with normal amniotic fluid index of 13 cm. Fetus is in cephalic presentation with heart rate of 142 BPM. Cervical length is 4.3 cm. There is no evidence of placenta previa or abruption. No maternal adnexal region abnormality is seen. IMPRESSION: No evidence of traumatic abnormality on limited obstetrical ultrasonography. Dictated by: Dictated on workstation # [id number]
[2022-11-17 17:12] VITALS: BP 128/72
== END 2022-11-17 17:18 | disposition home or self-care (01) ==
LOC: EDUNIT# 14:56 → ER 14:59
DX: O9A.213 Injury, poisoning and certain other consequences of external causes complicating pregnancy, third trimester (principal); R10.9 Unspecified abdominal pain; O99.013 Anemia complicating pregnancy, third trimester; D64.9 Anemia, unspecified; Z3A.00 Weeks of gestation of pregnancy not specified; V49.9XXA Car occupant (driver) (passenger) injured in unspecified traffic accident, initial encounter; Y92.410 Unspecified street and highway as the place of occurrence of the external cause
CPT/HCPCS: 36415; 76815; 85025

== ENCOUNTER 2022-11-30 08:07 | Outpatient (RCR) | payer OTHER ==
[2022-11-28 08:25] VITALS: BP 116/76
[2022-11-28] MEDS: IRON SUCROSE 200 MG/10 ML (VENOFER) VIAL IV SCH (08:41)
[2022-11-30] MEDS: IRON SUCROSE 200 MG/10 ML (VENOFER) VIAL IV SCH (08:48)
[2022-11-30 09:01] VITALS: BP 114/79
[2022-12-20] MEDS ORDERED: FERR325T24 PO (13:02)
[2022-12-20] MEDS ORDERED: IBUP-844 PO (13:02)
== END 2022-12-25 | disposition home or self-care (01) ==
LOC: SDC 08:07
PROVIDERS: ATTEND Family Medicine
DX: D64.9 Anemia, unspecified (principal)
CPT/HCPCS: 96365

== ENCOUNTER 2022-12-19 06:00 | Inpatient (IN) | payer OTHER ==
[2022-12-19] VITALS (25 sets, daily range): BP systolic 102–156; BP diastolic 54–89
[~2022-12-19] VITALS: Ht 167 cm; Wt 94.6 kg
--- OUTSIDE RECORDS SUMMARY | 2022-12-19 06:25 | XMS REPORT ---
Author Author [facility] Address Unknown Phone Unavailable Care Team Providers Care Cardiopulmonary Technician And Eeg Tech Name Role Phone DANIELLE Springer Unavailable PROBLEMS Type Condition ICD9-CM Code WGL33-BC Code Onset Dates Condition S tatus W/U Status Risk SNOMED Code Notes Problem Nuchal cord, single gestation O69.81X0 confi rmed [id number] Problem care in third trimester Z34.93 conf irmed [id number] Problem Iron deficiency anemia, unspecified iron deficiency an emia type D50.9 confirmed 50969505 Problem RLS (restless legs syndrome) G25.81 confirme d 38358635 Problem Screening Z13.9 confirmed 413790724 Problem care in second trimester Z34.92 con firmed [id number] Problem Gastroesophageal reflux disease without esophagitis K21.9 confirmed 349253104 Problem Infertility, female N97.9 confirmed [id number] ALLERGIES No Known Allergies ENCOUNTERS from 1996 to 2022-10-23 Encounter Location Date Provider Diagnosis [facility] [address] [facility] [id number] [address] Oct, DANIELLE Springer Acute bilateral low back pain without sciatica M54.5 IMMUNIZATIONS Vaccine Route Administration Date Status infanrix dtap (history) Unknown Aug 07, 1997 Administ ered infanrix dtap (history) Unknown Oct 13, 2000 Administ ered tdap (history) Unknown Jul 04, 2008 Administered tdap (history) Unknown Jul 21, 2019 Administered td adult 2 Lf tetanus toxoid, preservative free, adsorbed (h istory) Unknown Apr 07, 2003 Administered gardasil-4 (history) Unknown Jul 04, 2008 Administere d varivax (history) Unknown Oct 13, 2000 Administered varivax (history) Unknown Jul 04, 2008 Administered DTP Unknown 1996 Administered COVID-19 Pfizer (history) Unknown Sep 01, 2020 Admini stered COVID-19 Pfizer (history) Unknown Sep 21, 2020 Admini stered hepatitis b pediatric (history) Unknown 1996 Administered hib (history) Unknown 1996 Administered DTaP-Hib Unknown 1996 Administered DTaP-Hib Unknown 1996 Administered OPV Unknown 1996 Administered OPV Unknown 1996 Administered OPV Unknown 1996 Administered Hib 4 dose schedule Unknown Aug 07, 1997 Administered 1st Booster PFIZER, COVID-19, 0.3ml (Comirnaty) IM Intramuscular November 02, 2021 Administered hepatitis a (history) Unknown Jul 04, 2008 Administer ed PRIVATE TDAP (BOOSTRIX) IM Intramuscular February 14, 2017 Adminis tered TDAP (FREE) BOOSTRIX IM Intramuscular Sep 28, 2022 Administer ed mmr-II (history) Unknown Aug 07, 1997 Administered hepatitis b pediatric (history) Unknown 1996 Administered hepatitis b pediatric (history) Unknown 1996 Administered hepatitis b pediatric (history) Unknown 1996 Administered mmr-II (history) Unknown Oct 13, 2000 Administered polio ipv (history) Unknown Oct 13, 2000 Administered menactra mcv-4 (history) Unknown Jul 04, 2008 Adminis tered SOCIAL HISTORY Sex Assigned At : Social History Observation Description Sex Assigned At Unknown Alcohol Screen (Audit-C) Question Answer Notes Did you have a drink containing alcohol in the past year? No Points 0 Interpretation Negative PHQ2 Question Answer Notes In the last 2 weeks, how often have you had little interest or pleasure in doing things? Not at all In the last 2 weeks, how often have you been feeling down, depressed, or hopeless? Not at all Total PHQ2 Score 0 Tobacco use other than smoking: Question Answer Notes Are you an other tobacco user? No REASON FOR REFERRAL No Information VITAL SIGNS Height 65 in Oct, Height-cm 165.1 cm Oct, Weight 186.4 lbs Oct, Weight-kg 84.55 kg Oct, Temperature 97.7 degrees Fahrenheit Oct, Heart Rate 80 bpm Oct, Respiratory Rate 18 bpm Oct, Oximetry 99 % Oct, BMI 31.02 kg/m2 Oct, Blood pressure systolic 112 mmHg Oct, Blood pressure diastolic 76 mmHg Oct, MEDICATIONS Medication SIG (Take, Route, Frequency, Duration) Notes Start Da te End Date Status Cetirizine HCl 10 MG 1 tablet as needed Orally Once a day for 30 day(s) Jul, Not-Taking Fluticasone Propionate 50 MCG/ACT 2 spray in each nost ril Nasally Once a day for 30 day(s) Jul, Not-Taking Gummies Active PROCEDURES from 1996 to 2022-10-23 Procedure Date Ordered Date Performed Result Body Site ROUTINE VENIPUNCTURE 2020-11-17 2020-11-17 N/A RESULTS No Results REASON FOR VISIT Back Pain- was seen last week for bladder infection. finished meds this past wee kend & then started having pain in back were kidneys are located. pt states she feels cramping when she needs to use the bathroom. [facility] MEDICAL (GENERAL) HISTORY Type Description Date Medical History Childhood asthma Medical History anemia Medical History back trouble-sciatica Surgical History tubes in ears Surgical History right breast biopsy 08/01/2018 Surgical History cholecystectomy 2019 Surgical History D&C 03/17 Hospitalization History asthma Goals Section No Information Health Concerns No Information MEDICAL EQUIPMENT No Information MENTAL STATUS No Information FUNCTIONAL STATUS No Information ASSESSMENTS Encounter Date Diagnosis Assessment Notes Treatment Notes Treatm ent Clinical Notes Oct, Acute bilateral low back pain without sciatica ( ICD-10 - M54.5) May try ice or heat which ever feels better. Do not take ibuprofen or alleve while taking Diclofenac. Discontinue diclofenac if stomach irritation occurs. RTC if no improvement. , Learning About Low Back Pain material was published Urine dip and are negative tod ay. Back pain appears to be musculoskeletal. Will trial NSAID x 7 days. Pt encouraged to schedule IPT appt to reestablish with a provider. PLAN OF TREATMENT Treatment Notes Assessment Notes Clinical Notes Acute bilateral low back pain without sciatica May try ice or heat which ever feels better. Do not take ibuprofen or alleve while taking Diclofenac. Discontinue diclofenac if stomach irritation occurs. RTC if no improvement. , Learning About Low Back Pain material was published Urine dip and are negative tod ay. Back pain appears to be musculoskeletal. Will trial NSAID x 7 days. Pt encouraged to schedule IPT appt to reestablish with a provider. Next Appt Details prn Reason:back pain Provider Name:AIDE ELLIS, 2022-09-29 7 09:30:00 AM, [address] [facility], [id number], [place], [address], Provider Name:REMI GUSTAFSON, 10-26 03:15:00 PM, [address] , [place], [address], Follow Up:[facility] Insurance Providers Payer Name Payer Address Payer Phone Insured Name Patient Relati onship to Insured Coverage Start Date Coverage End Date Subscriber Number Group [facility] [address] [facility] [id number] Liliane Hernandez Self - patient is the insured 2022 [facility] [employer] Benefits [address] [facility] [address] Liliane Kunz Self - patient is the insured [id number] MEDICATIONS ADMINISTERED Medication Instructions Date of Administration Dosage TORADOL 30 MG/2ML (KETOROLAC) May, 60 mg DEXAMETHASONE 4MG/ML (PER 1 ML) May, 4 mg KENALOG 40 MG/ML (PER 10 MG) May, 40 mg SOLUMEDROL (UP TO 125 MG) Apr, 125 mg
--- OUTSIDE RECORDS SUMMARY | 2022-12-19 06:25 | XMS REPORT ---
Author Author [facility] Address Unknown Phone Unavailable Care Team Providers Care Bit And Shank Department Supervisor Name Role Phone KOLBY LEACH Unavailable PROBLEMS Type Condition ICD9-CM Code SGJ96-MM Code Onset Dates Condition S tatus W/U Status Risk SNOMED Code Notes Problem Nuchal cord, single gestation O69.81X0 confi rmed [id number] Problem care in third trimester Z34.93 conf irmed [id number] Problem Iron deficiency anemia, unspecified iron deficiency an emia type D50.9 confirmed 04735809 Problem RLS (restless legs syndrome) G25.81 confirme d 16069731 Problem Screening Z13.9 confirmed 184679483 Problem care in second trimester Z34.92 con firmed [id number] Problem Gastroesophageal reflux disease without esophagitis K21.9 confirmed 269019714 Problem Infertility, female N97.9 confirmed [id number] ALLERGIES No Known Allergies ENCOUNTERS from 1996 to 2022-12-19 Encounter Location Date Provider Diagnosis [facility] [address] [facility] [id number] [address] December, KOLBY LEACH IMMUNIZATIONS Vaccine Route Administration Date Status infanrix [...] REASON FOR REFERRAL No Information VITAL SIGNS No information MEDICATIONS Medication SIG (Take, Route, Frequency, Duration) Notes Start Da te End Date Status Gummies Active PROCEDURES No Information RESULTS No Results REASON FOR VISIT Lab results MEDICAL (GENERAL) HISTORY Type Description Date Medical History Childhood asthma Medical History anemia Medical History back trouble-sciatica Surgical History tubes in ears Surgical History right breast biopsy 08/01/2018 Surgical History cholecystectomy 2019 Surgical History D&C 03/17 Hospitalization History asthma Goals Section No Information Health Concerns No Information MEDICAL EQUIPMENT No Information MENTAL STATUS No Information FUNCTIONAL STATUS No Information ASSESSMENTS No Information PLAN OF TREATMENT No Information Insurance Providers Payer Name Payer Address Payer Phone Insured Name Patient Relati onship to Insured Coverage Start Date Coverage End Date Subscriber Number Group [facility] [id number] [facility] [id number] Liliane Hernandez Self - patient is the insured [facility]22 [facility] [employer] [address] [facility] [address] [phone] Liliane Kunz Self - patient is the insured 2022 [id number] MEDICATIONS ADMINISTERED Medication Instructions Date of Administration Dosage TORADOL 30 MG/2ML (KETOROLAC) May, 60 mg DEXAMETHASONE 4MG/ML (PER 1 ML) May, 4 mg KENALOG 40 MG/ML (PER 10 MG) May, 40 mg SOLUMEDROL (UP TO 125 MG) Apr, 125 mg
--- OUTSIDE RECORDS SUMMARY | 2022-12-19 06:25 | XMS REPORT | Clinical Summary ---
Author Author [facility] Organization [facility] Address Unknown Phone Unavailable Care Team Providers Care Reservation Manager Name Role Phone PCP Unavailable Allergies Not on File Medications Not on file Active Problems Not on file Social History Date Tobacco Use Types Packs/Day Years Used Smoking Tobacco: Never Assessed Date Recorded Sex and Gender Information Value Sex Assigned at Not on file Gender Identity Not on file Sexual Orientation Not on file Last Filed Vital Signs Not on file Plan of Treatment Not on file Results Not on filefrom Last 3 Months
--- OUTSIDE RECORDS SUMMARY | 2022-12-19 06:25 | XMS REPORT ---
Author Author [facility] Address Unknown Phone Unavailable Care Team Providers Care Police Detention Attendant Name Role Phone KOLBY LEACH Unavailable PROBLEMS Type Condition ICD9-CM Code [id number] Code Onset Dates Condition S tatus W/U Status Risk SNOMED Code Notes Problem Nuchal cord, single gestation O69.81X0 confi rmed [id number] Problem care in third trimester Z34.93 conf irmed [id number] Problem Iron deficiency anemia, unspecified iron deficiency an emia type D50.9 confirmed [id number] Problem RLS (restless legs syndrome) G25.81 confirme d [id number] Problem Screening Z13.9 confirmed [id number] Problem care in second trimester Z34.92 con firmed [id number] Problem Gastroesophageal reflux disease without esophagitis K21.9 confirmed [id number] Problem Infertility, female N97.9 confirmed [id number] ALLERGIES No Known Allergies ENCOUNTERS from 1996 to 2022-12-04 Encounter Location Date Provider Diagnosis [facility] [address] [facility] [id number] [address] Nov, KOLBY LEACH Infertility, female N97.9 and Gastroesophageal reflux disease without esophagitis K21.9 IMMUNIZATIONS Vaccine Route Administration Date Status infanrix [...] other tobacco user? No REASON FOR REFERRAL from 1996 to 2022-12-04 Reason Evaluation of infertility an d difficulty conceiving Diagnosis 1 Infertility, female (N97.9) Referral Organization [facility] Referring Provider First Name KOLBY Referring Provider Last Name ZAINABEthel Referring Provider Specialty Physician Catia Designer Referred Provider Wilton Rojas Referred Provider Specialty Sports Writer and gynecolog ist Referral Priority Routine Referral Appointment Date 2021-01-01 General Notes Martha Mcbride 12/18/2020 8:34:2 3 AM > referral faxed check status Martha Mcbride 12/31/2020 10:19:37 AM > appt as above Martha Mcbride Tiago 03/05/2021 1:09:03 PM > records requested VITAL SIGNS Height 65 in Nov, Height-cm 165.1 cm Nov, Weight 187.2 lbs Nov, Weight-kg 84.91 kg Nov, Temperature 98.3 degrees Fahrenheit Nov, Heart Rate 62 bpm Nov, Respiratory Rate 16 bpm Nov, Oximetry 98 % Nov, BMI 31.15 kg/m2 Nov, Blood pressure systolic 126 mmHg Nov, Blood pressure diastolic 72 mmHg Nov, MEDICATIONS Medication SIG (Take, Route, Frequency, Duration) Notes Start Da te End Date Status Gummies Active PROCEDURES from 1996 to 2022-12-04 Procedure Date Ordered Date Performed Result Body Site ROUTINE VENIPUNCTURE 2020-12-17 2020-12-17 N/A RESULTS No Results REASON FOR VISIT IPT. PT states that she wished to establish care today. Pt also wishes to discus s fertility. Monica Bro MA MEDICAL (GENERAL) HISTORY Type Description Date Medical [...] Notes Treatment Notes Treatm ent Clinical Notes Nov, Infertility, female (ICD-10 - N97.9) Labs as ordered. She will schedule WWE and pap at her convenience with provider of choice. At this time I do not feel that pelvic u/s is necessary and will defer to [facility]. Will refer to Dr Rojas, [facility] for evaluation and recommendations regarding fertility evaluation and treatment options (Clomid?, etc)., Infertility: Care Instructions material was published Nov, Gastroesophageal reflux dise ase without esophagitis (ICD-10 - K21.9) Nov, Other Lab to be drawn to establish a baseline deferred for fasting. Continue to work on supportive and preventative measures for diet, exercise, and disease prevention. PLAN OF TREATMENT Treatment Notes Assessment Notes Clinical Notes Infertility, female Labs as ordered. She will sc hedule WWE and pap at her convenience with provider of choice. At this time I do not feel that pelvic u/s is necessary and will defer to [facility]. Will refer to Dr Rojas, [facility] for evaluation and recommendations regarding fertility evaluation and treatment options (Clomid?, etc)., Infertility: Care Instructions material was published Referrals Referral Date Details 2021-01-01 2021-01-01, Evaluation of in fertility and difficulty conceiving, Wilton Mary Next Appt Details as scheduled Reason: Provider Name:AIDE ELLIS, 2022-11-26 0 09:15:00 AM, [address] [facility], [id number], [address], Provider Name:REMI GUSTAFSON, 12-07 02:30:00 PM, [address], [place], [address], Insurance Providers Payer Name Payer Address Payer Phone Insured Name Patient Relati onship to Insured Coverage Start Date Coverage End Date Subscriber Number Group Nu [id number] [id number] [facility] [id number] Liliane Hernandez Self - patient is the insured 2022 [facility] Benefits [address] [facility] [address] Liliane Kunz Self - patient is the insured 2022 [id number] MEDICATIONS ADMINISTERED Medication Instructions Date of Administration Dosage TORADOL 30 MG/2ML (KETOROLAC) May, 60 mg DEXAMETHASONE 4MG/ML (PER 1 ML) May, 4 mg KENALOG 40 MG/ML (PER 10 MG) May, 40 mg SOLUMEDROL (UP TO 125 MG) Apr, 125 mg
--- NOTE | 2022-12-19 06:30 | History & Physical-OB ---
OB - Chief Complaint & HPI Date/Time Date of Admission: Date of Admission: Dec 19, 2022 at 06:17 Date seen by a Provider: Dec 19, 2022 Time Seen by a Provider: 06:30 Chief Complaint/History OB-Reason for Admission/Chief: Induction of Labor Hx : 1 Hx Para: 0 Expected Date of Delivery: December 26, 2022 Gestational Age in Weeks: 39 Gestational Age in Days: 0 Admission Nurse Assessment Rev: Yes History of Labs GBS negative Allergies and Home Medications Allergies Coded Allergies: coconut (Verified Allergy, Unknown, Shortness of Breath, 11/30/22) Patient Home Medication List Home Medication List Reviewed: Yes Cephalexin (Cephalexin) 250 Mg Capsule, 250 MG PO TID Prescribed by: CHESTER GIL on 09/20/22 1757 Loratadine (Claritin) 5 Mg Tab.rapdis, 5 MG PO, (Reported) Entered as Reported by: CHESTER GIL on 09/20/22 1700 Omeprazole Magnesium (Prilosec Otc) 20 Mg Tablet.dr, 20 MG PO DAILY, (Reported) Entered as Reported by: ANGIE WALLIS on 03/08/21 1425 Oxymetazoline HCl (Afrin) 0.05 % Mist, 15 ML NS, (Reported) Entered as Reported by: CHESTER GIL on 09/20/22 1700 Pnv 119/Iron Fum/Folic Acid ( 19 Tablet) 29 Mg Iron-1 Mg Tablet, 1 EACH PO, (Reported) Entered as Reported by: CHESTER GIL on 09/20/22 1700 OB - History Hx of Present Care: Yes Ultrasounds: Normal mid trimester US Obstetrical Complications: None Medical Complications: None Delivery History Hx Blood Disorders: No Adverse Rxn to Tranfusion: No (N/A) Patient Past Medical History No chronic medical problems Social History/Family History 2nd Hand Smoke Exposure: No Immunizations First/Initial COVID19 Vaccine: December 2020 Second COVID19 Vaccination: December 2020 Third COVID19 Vaccination Date: December 2020 OB - Admission Exam Physical Exam HEENT: Moist Membranes Heart: Rhythm Normal Abdomen: Gravid Cervical Dilatation: 2cm Effacement: 50% Station: -3 Membranes: Intact Heart Rate: 140's Accelerations: Accelerations Present Short Term Variability: Present Sharepoint Designer Developer Variability: Average (6-25) Stewart Scoring Tool (Modified) Dilation (cm): 1-2cm (1) Effacement (%): 31-51% (1) Descent/Station: -3 (0) Cervix Consistency: Medium(1) Cervix Position: Middle/Mid-Position (1) Stewart Score: 4 OB - Assessment/Plan/Diagnosis Assessment Assessment: induction of labor Admission Dx 1. IUP at term 39 weeks gestation Admission Status: Inpatient Order (span 2 midnights) Reason for Inpatient Admission: Induction of labor Plan Plan: Induction Induction Method: AROM Other Plan -epidural -pitocin if necessary REMI GUSTAFSON MD Dec 19, 2022 06:30
[2022-12-19] MEDS ORDERED: D5 LR IV SOLUTION 1,000 ML IV SCH (06:45)
[2022-12-19] MEDS ORDERED: MINERAL OIL 30 ML UDC TOP PRN (06:45)
[2022-12-19] MEDS ORDERED: OXYTOCIN PRE-MIX DRIP 500 ML IV SCH ×3 (06:45→13:45)
[2022-12-19 07:04] LABS: BILIRUBIN,URINE NEGATIVE (NEGATIVE); CLARITY,URINE CLEAR; COLOR,URINE YELLOW; GLUCOSE, URINE (UA) NEGATIVE (NEGATIVE); KETONES,URINE NEGATIVE (NEGATIVE); LEUKOCYTE ESTERASE ,URINE 2+ (NEGATIVE); NITRITE,URINE NEGATIVE (NEGATIVE); PH,URINE 6.5 (5-9); PROTEIN,URINE NEGATIVE (NEGATIVE)
[2022-12-19 07:06] LABS: BASOPHILS % (AUTO) 0 % (0-10); EOSINOPHILS # (AUTO) 0.1 10^3/uL (0.0-0.3); EOSINOPHILS % (AUTO) 1 % (0-10); HEMATOCRIT 31 % (35-52); HEMOGLOBIN 9.3 g/dL (11.5-16.0); LYMPHOCYTES % (AUTO) 28 % (12-44); MEAN CORPUSCULAR HEMOGLOBIN 23 pg (25-34); MEAN CORPUSCULAR HGB CONC 30 g/dL (32-36); MEAN CORPUSCULAR VOLUME 75 fL (80-99); MONOCYTES # (AUTO) 0.6 10^3/uL (0.0-1.0); MONOCYTES % (AUTO) 8 % (0-12); NEUTROPHILS # (AUTO) 4.4 10^3/uL (1.8-7.8); NEUTROPHILS % (AUTO) 62 % (42-75); PLATELET COUNT 192 10^3/uL (130-400); WHITE BLOOD COUNT 7.1 10^3/uL (4.3-11.0)
[2022-12-19 07:19] LABS: BACTERIA,URINE MODERATE /HPF
[2022-12-19] MEDS ORDERED: BUTORPHANOL INJ 2 MG/ML (STADOL) VIAL IV PRN (10:15)
[2022-12-19] MEDS ORDERED: MEPIVACAINE (CARBOCAINE) 2% 50 ML VIAL ONE (11:48)
[2022-12-19] MEDS ORDERED: MEPIVACAINE (CARBOCAINE) 2% 50 ML VIAL INJ PRN (12:30)
--- NOTE | 2022-12-19 13:35 | OB Labor & Delivery Record ---
L&D History Date of Service Date of Service: Dec 19, 2022 History Expected Date of Delivery: Dec 22, 2022 Gestational Age in Weeks: 39 Hx : 1 Hx Para: 1 Complications Events: Routine care Operative Indications (Cesarea: N/A-Vaginal Delivery Intrapartal Events: None L&D Stage1 Stage One Onset of Labor - Date: Dec 19, 2022 Onset of Labor - Time: 06:40 Monitors and Tracing Monitor Mode: Internal Heart Rate: 115 Monitor Accelerations: Uniform Monitor Decelerations: Variable Station: 0 Detention Variability: Average (6-10) Presentation: Vertex Vital Signs VS - Last 72 Hours, by Label 12/19/22 12/19/22 12/19/22 12/19/22 06:55 06:55 07:33 07:50 Temp 36.3 36.3 Pulse 66 66 62 69 Resp 16 16 18 18 B/P (MAP) 118/79 (92) 110/73 (85) 126/65 (85) Pulse Ox 98 98 O2 Delivery Room Air Room Air Room Air Room Air 12/19/22 12/19/22 12/19/22 12/19/22 08:18 08:32 08:58 09:04 Pulse 72 72 68 67 Resp 18 18 18 18 B/P (MAP) 127/76 (93) 119/76 (90) 108/58 (75) 110/60 (77) O2 Delivery Room Air Room Air Room Air Room Air 12/19/22 12/19/22 12/19/22 12/19/22 09:18 09:34 10:04 10:18 Pulse 71 72 71 75 Resp 18 18 18 18 B/P (MAP) 112/67 (82) 122/73 (89) 135/78 (97) 142/71 (94) O2 Delivery Room Air Room Air Room Air Room Air Rupture of Membranes Spontaneous Ruture of Membrane: No Amniotic Membrane Rupture Time: 0640 Amniotic Membrane Fluid Desc.: Clear L&D Stage2 Stage Two Stage II Date: Dec 19, 2022 Stage II Time: 12:25 Monitors and Tracing Monitor Mode: Internal Heart Rate: 115 Condition of Delivery 1 minute Comment: 8 5 minute Comment: 9 Condition of Infant Condition of Infant: Living Exam: No Observed Abnormalities Resuscitation Resuscitation: N/A - Spontaneous Resp L&D Stage3 Stage Three Stage III Date: Dec 19, 2022 Stage III Time: 12:31 Pictocin Pitocin Administration mu/min: 8 Pitocin ml/hr: 8 Pitocin Administration Comment: 0929- PITOCIN INCREASED TO 8ML/HR PER PITOCIN PROTOCOL Placenta Delivery Placenta Delivery: Spontaneous Delivery Summary Summary Estimated blood loss (mL): 300 Condition of Delivery Examined: Cervix Examined Post Hemorrhage: No Intervention Required none REMI GUSTAFSON MD Dec 19, 2022 13:35
[2022-12-19] MEDS ORDERED: BENZOCAINE/MENTHOL (DERMOPLAST) 56 ML CAN TP PRN (13:45)
[2022-12-19] MEDS ORDERED: MEASLES,MUMPS,RUBELLA 1 EA INJ SQ ONE (13:45)
[2022-12-19] MEDS ORDERED: TETANUS,DIPTH,PERTUSS P/F (BOOSTRIX) 0.5 ML VIAL IM ONE (13:45)
[2022-12-19] MEDS ORDERED: NALOXONE 0.4 MG/ML 1 ML (NARCAN) VIAL IV PRN (13:45)
[2022-12-19] MEDS ORDERED: WITCH HAZEL(TUCKS) 40 EA JAR TOP PRN (13:45)
[2022-12-19] MEDS ORDERED: CATHETER FLUSH 10 ML SYR IV SCH (14:00)
[2022-12-19] MEDS: IBUPROFEN 600 MG (MOTRIN) TAB PO SCH ×2 (14:42→20:54)
[2022-12-19] MEDS: ACETAMINOPHEN 500 MG TAB (TYLENOL) PO SCH (15:27)
[2022-12-19] MEDS: DOCUSATE SODIUM 100 MG (COLACE) CAP PO SCH (20:53)
[2022-12-19] MEDS: CATHETER FLUSH 10 ML SYR IV SCH (20:54)
[2022-12-20 00:39] VITALS: BP 124/69
[2022-12-20] MEDS: ACETAMINOPHEN 500 MG TAB (TYLENOL) PO SCH ×2 (00:43→07:27)
[2022-12-20 05:47] LABS: LYMPHOCYTES % (AUTO) 20 % (12-44); MEAN CORPUSCULAR HGB CONC 30 g/dL (32-36)
[2022-12-20 05:49] LABS: BASOPHILS % (AUTO) 0 % (0-10); EOSINOPHILS # (AUTO) 0.1 10^3/uL (0.0-0.3); EOSINOPHILS % (AUTO) 1 % (0-10); HEMATOCRIT 27 % (35-52); MEAN CORPUSCULAR HEMOGLOBIN 23 pg (25-34); MEAN CORPUSCULAR VOLUME 74 fL (80-99); MONOCYTES # (AUTO) 0.6 10^3/uL (0.0-1.0); MONOCYTES % (AUTO) 6 % (0-12); NEUTROPHILS # (AUTO) 7.3 10^3/uL (1.8-7.8); NEUTROPHILS % (AUTO) 73 % (42-75); PLATELET COUNT 188 10^3/uL (130-400)
[2022-12-20 05:55] VITALS: BP 110/53
[2022-12-20] MEDS: CATHETER FLUSH 10 ML SYR IV SCH (05:58)
[2022-12-20] MEDS: IBUPROFEN 600 MG (MOTRIN) TAB PO SCH ×2 (05:58→12:20)
[2022-12-20 08:00] VITALS: BP 118/68
[2022-12-20] MEDS ORDERED: FERROUS SULF 325 MG (IRON) TAB PO SCH (08:00)
[2022-12-20] MEDS: DOCUSATE SODIUM 100 MG (COLACE) CAP PO SCH (08:20)
[2022-12-20 12:00] VITALS: BP 122/74
[2022-12-20] MEDS ORDERED: IBUP-844 PO (13:02)
[2022-12-20] MEDS ORDERED: FERR325T24 PO (13:02)
--- NOTE | 2022-12-20 13:03 | Discharge Summary ---
Diagnosis/Chief Complaint Date of Admission Dec 19, 2022 at 06:17 Date of Discharge Discharge Summary-OBS Procedures None. Discharge Physical Examination Allergies: Coded Allergies: coconut (Verified Allergy, Unknown, Shortness of Breath, 11/30/22) Vitals & I&Os Vital Sign - Last 12Hours Date Time Temp Pulse Resp B/P (MAP) Pulse Ox O2 Delivery O2 Flow Rate FiO2 12/20/22 08:00 36.9 74 18 118/68 (85) 97 Room Air Hospital Course Labs Laboratory Tests 12/20/22 05:15: White Blood Count 10.0, Red Blood Count 3.56L, Hemoglobin 8.0L, Hematocrit 27L, Mean Corpuscular Volume 74L, Mean Corpuscular Hemoglobin 23L, Mean Corpuscular Hemoglobin Concent 30L, Red Cell Distribution Width 21.2H, Platelet Count 188, Mean Platelet Volume , Immature Granulocyte % (Auto) 0, Neutrophils (%) (Auto) 73, Lymphocytes (%) (Auto) 20, Monocytes (%) (Auto) 6, Eosinophils (%) (Auto) 1, Basophils (%) (Auto) 0, Neutrophils # (Auto) 7.3, Lymphocytes # (Auto) 2.0, Monocytes # (Auto) 0.6, Eosinophils # (Auto) 0.1, Basophils # (Auto) 0.0, Immature Granulocyte # (Auto) 0.0, Percent Immature Platelet Fraction 13.1H Discharge Instructions to patient/family Please see electronic discharge instructions given to patient. Discharge Medications Reviewed and agree with Discharge Medication list on patient's Discharge Instruction sheet REMI GUSTAFSON MD Dec 20, 2022 13:03
--- NOTE | 2022-12-20 13:03 | Discharge Inst-Women's Service ---
Discharge Inst-Women's Serv Depart Medication/Instructions New, Converted or Re-Newed RX: Transmitted to Pharmacy ([facility]) Problems Reviewed?: Yes Consults/Follow Up Additional Follow Up: Yes (Dr Gustafson In 6 weeks at [facility]) Activity Driving Instructions: No Driving for 1 Week Nothing Inside Vagina: No [place] (For 6 weeks) Diet Discharge Diet: Regular Diet Return to The Hospital For: As below Symptoms to Report to : Bleeding Excessive, Fever Over 101 Degrees F, Vaginal Discharge Foul For Any Problems or Questions: Contact Your Physician REMI GUSTAFSON MD Dec 20, 2022 13:03
[2022-12-20 15:33] VITALS: BP 128/68
== END 2022-12-20 17:53 | disposition home or self-care (01) | DRG 807 ==
LOC: LDRP 06:17
PROVIDERS: ADMIT Family Medicine; ATTEND Family Medicine
PROC: 10E0XZZ Delivery of Products of Conception, External Approach (ICD-10-PCS; principal; 2022-12-19)
PROC: 10907ZC Drainage of Amniotic Fluid, Therapeutic from Products of Conception, Via Natural or Artificial Opening (ICD-10-PCS; 2022-12-19)
DX: O80 Encounter for full-term uncomplicated delivery (principal); Z37.0 Single live birth; Z3A.39 39 weeks gestation of pregnancy
CPT/HCPCS: 36415; 81000; 85025; 86780; 86850; 86900; 86901; 87088

== ENCOUNTER 2023-03-28 19:17 | Emergency (ER) | payer OTHER ==
[~2023-03-28] VITALS: Ht 167.7 cm; Wt 84.0 kg
[~2023-03-28 19:17] MED LIST changes: +FERR325T24 PO; +IBUP-844 PO
[2023-03-28 19:39] LABS: BILIRUBIN,URINE NEGATIVE (NEGATIVE); CLARITY,URINE CLEAR; COLOR,URINE YELLOW; GLUCOSE, URINE (UA) NEGATIVE (NEGATIVE); KETONES,URINE NEGATIVE (NEGATIVE); LEUKOCYTE ESTERASE ,URINE 2+ (NEGATIVE); NITRITE,URINE NEGATIVE (NEGATIVE); PROTEIN,URINE 2+ (NEGATIVE)
--- NOTE | 2023-03-28 19:39 | ED GU-Female ---
General Chief Complaint: - Reproductive Stated Complaint: BLOOD IN URINE/ABD CRAMPING Source: patient Exam Limitations: no limitations History of Present Illness Date Seen by Provider: Mar 28, 2023 Time Seen by Provider: 19:19 Initial Comments 28-year-old female with no pertinent past medical history coming in due to pain with urination, seeing some blood in her urine, and lower abdominal cramping. She has been to the walk-in clinic twice, had a urinalysis which states that had too much blood in it to fully diagnose, and they are waiting on a urine culture. They did not put her on medicines. They also did a Pap smear and sent testing for STIs which thus far has been negative. She did not have any vaginal bleeding or vaginal discharge on their exam, and they reported that her cervix looked normal. She has never had symptoms like this before, does feel chills but no fever. Is not taking any medicine for it as of yet. She is breast feeding and is 3 months . She is on control and is not having regular periods yet. She also had a negative test today Allergies and Home Medications Allergies Coded Allergies: coconut (Verified Allergy, Unknown, Shortness of Breath, 11/30/22) Patient Home Medication List Home Medication List Reviewed: Yes Cephalexin (Cephalexin) 250 Mg Capsule, 250 MG PO TID Prescribed by: CHESTER GIL on 09/20/22 175 Ferrous Sulfate (Ferosul) 325 Mg (65 Mg Iron) Tablet, 325 MG PO BID WITH MEALS Prescribed by: REMI GUSTAFSON on 12/20/22 1302 Ibuprofen (Ibu) 600 Mg Tablet, 600 MG PO Q6H Prescribed by: REMI GUSTAFSON on 12/20/22 1302 Loratadine (Claritin) 5 Mg Tab.rapdis, 5 MG PO, (Reported) Entered as Reported by: CHESTER GIL on 09/20/22 1700 Omeprazole Magnesium (Prilosec Otc) 20 Mg Tablet.dr, 20 MG PO DAILY, (Reported) Entered as Reported by: ANGIE WALLIS on 03/08/21 1425 Pnv 119/Iron Fum/Folic Acid ( 19 Tablet) 29 Mg Iron-1 Mg Tablet, 1 EACH PO, (Reported) Entered as Reported by: CHESTER GIL on 09/20/22 1700 Review of Systems Review of Systems Constitutional: No fever EENTM: no symptoms reported Respiratory: no symptoms reported Cardiovascular: no symptoms reported Gastrointestinal: no symptoms reported Genitourinary: see HPI Musculoskeletal: no symptoms reported Skin: no symptoms reported Psychiatric/Neurological: No Symptoms Reported Endocrine: No Symptoms Reported Past Tpbjzos-Qdooqg-Qrnthp Hx Patient Social History Tobacco Use?: No Substance use?: No Alcohol Use?: Yes Alcohol Frequency: Once in a while Immunizations Up To Date First/Initial COVID19 Vaccinat: December 2020 Second COVID19 Vaccination Jayesh: December 2020 Third COVID19 Vaccination Date: December 2020 Seasonal Allergies Seasonal Allergies: No Past Medical History Surgery/Hospitalization HX: BREAST BIOPSY, KARIS Surgeries: Yes (BMT, WISDOM TEETH, BREAST BX) Gallbladder Respiratory: Yes (HX ASTHMA A CHILD) Currently Using CPAP: No Currently Using BIPAP: No Cardiac: No Neurological: Yes Headaches /Migraines Reproductive Disorders: No Female Reproductive Disorders: Denies Sexually Transmitted Disease: No HIV/AIDS: No Genitourinary: No Gastrointestinal: Yes (IBS?) Gastroesophageal Reflux, Chronic Constipation, Chronic Diarrhea, Irritable Bowel Musculoskeletal: No Endocrine: No HEENT: No Loss of Vision: Denies Hearing Impairment: Denies Cancer: No Psychosocial: No Integumentary: No Blood Disorders: Yes (ANEMIA) Adverse Reaction/Blood Tranf: No (N/A) Physical Exam Vital Signs Vital Signs - First Documented 03/28/23 19:27 Temp 36.9 Pulse 81 Resp 16 B/P (MAP) 137/87 (104) Pulse Ox 99 O2 Delivery Room Air Capillary Refill : Height, Weight, BMI Height: 5'6.00" Weight: 179lbs. 0.0oz. 81.555924sv; 33.92 BMI Method:Stated General Appearance: WD/WN, no apparent distress HEENT: PERRL/EOMI, normal ENT inspection, pharynx normal Neck: non-tender, full range of motion, supple, normal inspection Cardiovascular: regular rate, rhythm, no edema, no murmur Respiratory: chest non-tender, lungs clear, normal breath sounds, no respiratory distress, no accessory muscle use Gastrointestinal: normal bowel sounds, soft; No distended, No guarding, No rebound; tenderness (Mild suprapubic discomfort) Back: normal inspection, no CVA tenderness Extremities: normal range of motion, non-tender, normal inspection, no pedal edema, no calf tenderness, normal capillary refill Neurologic/Psychiatric: no motor/sensory deficits, alert, normal mood/affect Skin: normal color, warm/dry Procedures/Interventions Suture Size: 5-0 Progress/Results/Core Measures Suspected Sepsis SIRS Temperature: Pulse: Respiratory Rate: Blood Pressure / Mean: Results/Orders Lab Results Laboratory Tests Test 03/28/23 19:28 Range/Units Urine Color YELLOW Urine Clarity CLEAR Urine pH 7.0 5-9 Urine Specific [place] 1.025 H 1.016-1.022 Urine Protein 2+ H NEGATIVE Urine Glucose (UA) NEGATIVE NEGATIVE Urine Ketones NEGATIVE NEGATIVE Urine Nitrite NEGATIVE NEGATIVE Urine Bilirubin NEGATIVE NEGATIVE Urine Urobilinogen 0.2 < = 1.0 MG/DL Urine Leukocyte Esterase 2+ H NEGATIVE Urine RBC (Auto) 2+ H NEGATIVE Urine RBC 25-50 H /HPF Urine WBC 50-100 H /HPF Urine Squamous Epithelial Cells >50 H /HPF Urine Crystals NONE /LPF Urine Bacteria FEW H /HPF Urine Casts NONE /LPF Urine Mucus NEGATIVE /LPF Urine Culture Indicated YES My Orders Orders - JANELL BAPTISTE MD Urine Bedside (03/28/23 19:20) Ua Culture If Indicated (03/28/23 19:20) Urine Culture (03/28/23 19:28) Ceftriaxone Iv/Im (Ceftriaxone Iv/Im) (03/28/23 20:00) Lidocaine 1% Inj 20 Ml (Xylocaine 1% Inj (03/28/23 20:00) Phenazopyridine Tablet (Pyridium Tablet) (03/28/23 20:00) Vital Signs/I&O 03/28/23 19:27 Temp 36.9 Pulse 81 Resp 16 B/P (MAP) 137/87 (104) Pulse Ox 99 O2 Delivery Room Air Capillary Refill : Progress Note : Progress Note 28-year-old female with above history coming in due to pain with urination, hematuria, and lower abdominal cramping. ABCs were intact and vitals are stable on presentation. Physical exam with mild suprapubic discomfort, no signs of peritonitis, no pain over either ovary. Urinalysis with blood, and a lot of white blood cells as well as some bacteria. Specimen likely was slightly contaminated, however given her very classic symptoms, we would treat this as if it is a real infection. We will give her a dose of IM ceftriaxone here, Pyridium, and some Zofran followed by a prescription as well. Tyexr-nh-gntc test also negative here. She had a pelvic exam done already and has testing pending, they confirm she is not menstruating. She should follow back up after antibiotics, especially if not improving. She may need a urologist referral if no improvement. Departure Impression Primary Impression: Cystitis Disposition: HOME, SELF-CARE Condition: Stable Departure-Patient Inst. Decision time for Depature: 20:10 Referrals: [facility]/JONO (PCP) Primary Care Physician ONEL AU APRN (Family) Primary Care Physician Patient Instructions: Acute Cystitis (DC) Add. Discharge Instructions: Your bladder is very inflamed, likely from an infection based on your urinalysis. We will start antibiotics tomorrow and will continue for the next 5 days on top of what he received already today. We will also put you on a medicine called Pyridium which will turn your urine orange days. It is likely best to just pump your breastmilk and throat out and use formula until you are done with this pyridium. It is likely safe, however there is not good data based on it. The antibiotic is safe with breast-feeding. You can also take normal things such as Tylenol or ibuprofen [id number] for pain. If symptoms are not improving after the antibiotics, you may need a referral to a urologist. Scripts Ondansetron (Ondansetron Odt) 4 Mg Tab.rapdis 4 MG SL Q4H PRN for NAUSEA/VOMITING for 5 Days, #20 TAB Prov: JANELL BAPTISTE MD 03/28/23 Cefdinir (Cefdinir) 300 Mg Capsule 300 MG PO BID for 5 Days, #10 CAP 0 Refills Prov: JANELL BAPTISTE MD 03/28/23 Phenazopyridine HCl (Pyridium) 100 Mg Tablet 100 MG PO TID for 2 Days, #6 TAB Prov: JANELL BAPTISTE MD 03/28/23 Work/School Note: Work Release Form Date Seen in the Emergency Department: Mar 28, 2023 Return to Work: Mar 30, 2023 Restrictions: No Restrictions JANELL BAPTISTE MD Mar 28, 2023 19:39
[2023-03-28 19:47] LABS: BACTERIA,URINE FEW /HPF; RBC,URINE 25-50 /HPF; SQUAMOUS EPITHELIAL CELL,UR >50 /HPF; WBC,URINE 50-100 /HPF
[2023-03-28] MEDS ORDERED: LIDOCAINE 1% INJ 10 ML VIAL ONE (19:54)
[2023-03-28] MEDS ORDERED: PHEN-639 PO (20:00)
[2023-03-28] MEDS ORDERED: cefTRIAXone 1,000 MG VIAL IV/IM IM ONE (20:00)
[2023-03-28] MEDS ORDERED: PHENAZOPYRIDINE 100 MG (PYRIDIUM) TABLET PO ONE (20:00)
[2023-03-28] MEDS ORDERED: ONDANSETRON 4 MG (ZOFRAN) ORAL DISSOLVE TAB PO ONE (20:00)
[2023-03-28] MEDS ORDERED: ONDA4TAB11 SL (20:00)
[2023-03-28] MEDS ORDERED: CEFD300C3 PO (20:00)
[2023-03-28] MEDS ORDERED: LIDOCAINE 1% INJ 20 ML VIAL INJ ONE (20:00)
[2023-03-28 20:17] VITALS: BP 134/82
== END 2023-03-28 20:17 | disposition home or self-care (01) ==
LOC: EDUNIT# 19:17 → ER 19:18
DX: N30.91 Cystitis, unspecified with hematuria (principal); B96.89 Other specified bacterial agents as the cause of diseases classified elsewhere
CPT/HCPCS: 81000; 84703; 87088; 99284

== ENCOUNTER 2023-06-02 22:51 | Emergency (ER) | payer OTHER ==
[~2023-06-02] VITALS: Ht 167.7 cm; Wt 86.3 kg
[~2023-06-02 22:51] MED LIST changes: +CEFD300C3 PO; +FAMO-356 PO; -FAMO20TA3 PO; +ONDA4TAB11 SL; +PHEN-639 PO
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
[2023-06-02 23:27] LABS: HEMOGLOBIN 9.8 g/dL (11.5-16.0); MEAN CORPUSCULAR VOLUME 75 fL (80-99)
[2023-06-02 23:29] LABS: BASOPHILS # (AUTO) 0.1 10^3/uL (0.0-0.1); BASOPHILS % (AUTO) 1 % (0-10); EOSINOPHILS # (AUTO) 0.3 10^3/uL (0.0-0.3); EOSINOPHILS % (AUTO) 3 % (0-10); HEMATOCRIT 33 % (35-52); LYMPHOCYTES # (AUTO) 2.2 10^3/uL (1.0-4.0); LYMPHOCYTES % (AUTO) 23 % (12-44); MEAN CORPUSCULAR HEMOGLOBIN 22 pg (25-34); MEAN CORPUSCULAR HGB CONC 30 g/dL (32-36); MEAN PLATELET VOLUME 12.5 fL (9.0-12.2); MONOCYTES # (AUTO) 0.5 10^3/uL (0.0-1.0); MONOCYTES % (AUTO) 5 % (0-12); NEUTROPHILS # (AUTO) 6.4 10^3/uL (1.8-7.8); NEUTROPHILS % (AUTO) 68 % (42-75); PLATELET COUNT 236 10^3/uL (130-400); WHITE BLOOD COUNT 9.5 10^3/uL (4.3-11.0)
[2023-06-02 23:37] LABS: ALBUMIN 3.8 GM/DL (3.2-4.5)
[2023-06-02 23:38] LABS: CALCIUM 8.6 MG/DL (8.5-10.1)
[2023-06-02 23:39] LABS: TOTAL PROTEIN 7.2 GM/DL (6.4-8.2)
[2023-06-02 23:41] LABS: BILIRUBIN,TOTAL 0.4 MG/DL (0.1-1.0)
[2023-06-02 23:43] LABS: CREATININE SERUM 0.74 MG/DL (0.60-1.30)
[2023-06-02] MEDS ORDERED: IOHEXOL 350 MG/ML 100 ML (OMNIPAQUE 350) VIAL IV ONE (23:45)
[2023-06-02] MEDS ORDERED: NS 100 ML (IVPB) BAG IV ONE (23:45)
[2023-06-02] MEDS ORDERED: CATHETER FLUSH 10 ML SYR IV PRN (23:45)
[2023-06-02] MEDS ORDERED: HOLD METFORMIN - RECEIVED CONTRAST 20 ML VIAL IV SCH (23:45)
[2023-06-03] MEDS ORDERED: KETOROLAC INJ 30 MG/ML VIAL IVP ONE (00:45)
[2023-06-03] MEDS ORDERED: MELO15TA39 PO (00:49)
[2023-06-03] MEDS ORDERED: CYCL10TA25 PO (00:49)
[2023-06-03 01:14] LABS: BILIRUBIN,URINE NEGATIVE (NEGATIVE); CLARITY,URINE CLOUDY; COLOR,URINE YELLOW; GLUCOSE, URINE (UA) NEGATIVE (NEGATIVE); KETONES,URINE NEGATIVE (NEGATIVE); LEUKOCYTE ESTERASE ,URINE NEGATIVE (NEGATIVE); NITRITE,URINE NEGATIVE (NEGATIVE); PH,URINE 5.5 (5-9); PROTEIN,URINE 1+ (NEGATIVE)
[2023-06-03 01:15] LABS: BACTERIA,URINE MODERATE /HPF; SQUAMOUS EPITHELIAL CELL,UR 25-50 /HPF
[2023-06-03] MEDS ORDERED: RX-CYCLOBENZAPRINE 10 MG (FLEXERIL) TAB PPK#3 PO STA (01:40)
[2023-06-03 01:51] VITALS: BP 126/71
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
== END 2023-06-03 01:51 | disposition home or self-care (01) ==
LOC: EDUNIT# 22:51 → ER 22:54
DX: M25.512 Pain in left shoulder (principal); M54.50 Low back pain, unspecified; M54.6 Pain in thoracic spine; V49.40XA Driver injured in collision with unspecified motor vehicles in traffic accident, initial encounter; Y92.410 Unspecified street and highway as the place of occurrence of the external cause
CPT/HCPCS: 36415; 70450; 71045; 71260; 72125; 72128; 72131; 73030; 74177; 80053; 81000; 84703; 85025; 93041

== ENCOUNTER 2023-06-21 08:14 | Outpatient (RCR) | payer OTHER, MEDICAID ==
[~2023-06-21] VITALS: Ht 166.4 cm; Wt 86.7 kg
[~2023-06-21 08:14] MED LIST changes: +CYCL10TA25 PO; +FERRIC CARBOXYMALTOSE INJ 750 MG in NS (IVPB) 250 ML 250 ML IV SCH; +MELO15TA39 PO
[2023-06-21 08:45] VITALS: BP 106/73
== END 2023-06-27 | disposition home or self-care (01) ==
LOC: ONC 08:14
PROVIDERS: ATTEND Internal Medicine Hematology & Oncology
DX: Z51.11 Encounter for antineoplastic chemotherapy (principal); D50.9 Iron deficiency anemia, unspecified
CPT/HCPCS: 36415; 96365

== ENCOUNTER 2023-06-29 08:27 | Outpatient (RCR) | payer OTHER, MEDICAID ==
[2023-06-29 08:35] VITALS: BP 118/79
[2023-07-16] MEDS ORDERED: DOXY100T2 PO (22:27)
== END 2023-07-27 | disposition home or self-care (01) ==
LOC: ONC 08:27
PROVIDERS: ATTEND Internal Medicine Hematology & Oncology
DX: Z51.11 Encounter for antineoplastic chemotherapy (principal); D50.9 Iron deficiency anemia, unspecified; E66.9 Obesity, unspecified
CPT/HCPCS: 36415; 96365

== ENCOUNTER 2023-07-16 21:05 | Emergency (ER) | payer OTHER, MEDICAID ==
[~2023-07-16] VITALS: Ht 165.1 cm; Wt 87.5 kg
[~2023-07-16 21:05] MED LIST changes: -FERRIC CARBOXYMALTOSE INJ 750 MG in NS (IVPB) 250 ML 250 ML IV SCH
--- NOTE | 2023-07-16 21:34 | ED Cough/URI ---
General Chief Complaint: Cough/Cold/Flu Symptoms Stated Complaint: COUGH/LOSS OF APPETITE Nursing Triage Note: PT A&OX3; PT AMBULATES TO ROOM WITHOUT ASSISTANCE OF ER STAFF; PT ADVISES THAT SHE WAS SEEN AT [facility] ON MONDAY AND DIAGNOSED WITH A UTI AND PUT ON BACTRIM; PT ADVISES THAT STARTING YESTERDAY, SHE BEGAN HAVING AN INCREASING COUGH, BODY ACHES, FEVER, AND CHILLS; PT DENIES ANY COVID OR FLU TEST AT [facility]; PT REPORTS THAT TONIGHT SHE HAS HAS FELT INCREASINGLY WORSE Source: patient Exam Limitations: no limitations History of Present Illness Date Seen by Provider: Jul 16, 2023 Time Seen by Provider: 21:24 Initial Comments 28-year-old female presents emerged department today for cough x2 days. She also has general fatigue and loss of appetite. No known sick contacts. She believes she has had fevers at home but is not really sure. She has a history of chronic anemia, states most recent transfusion was about 3 weeks ago. No changes in bowel or bladder habits. No chest pain. All other systems reviewed and negative except documented per HPI. Voice recognition software was used to help create this chart Allergies and Home Medications Allergies Coded Allergies: coconut (Verified Allergy, Unknown, Shortness of Breath, 11/30/22) Patient Home Medication List Home Medication List Reviewed: Yes Cefdinir (Cefdinir) 300 Mg Capsule, 300 MG PO BID Prescribed by: JANELL BAPTISTE on 03/28/231999 Cephalexin (Cephalexin) 250 Mg Capsule, 250 MG PO TID Prescribed by: CHESTER GIL on 09/20/22 175 Cyclobenzaprine HCl (Cyclobenzaprine HCl) 10 Mg Tablet, 10 MG PO Q8H PRN for SPASMS Prescribed by: AGATHA IBRAHIM on 06/03/23 0049 Ferrous Sulfate (Ferosul) 325 Mg (65 Mg Iron) Tablet, 325 MG PO BID WITH MEALS Prescribed by: REMI GUSTAFSON on 12/20/22 1302 Ibuprofen (Ibu) 600 Mg Tablet, 600 MG PO Q6H Prescribed by: REMI GUSTAFSON on 12/20/22 1302 Loratadine (Claritin) 5 Mg Tab.rapdis, 5 MG PO, (Reported) Entered as Reported by: CHESTER GIL on 09/20/22 170 Meloxicam (Meloxicam) 15 Mg Tablet, 15 MG PO DAILY Prescribed by: AGATHA IBRAHIM on 06/03/23 0049 Omeprazole Magnesium (Prilosec Otc) 20 Mg Tablet.dr, 20 MG PO DAILY, (Reported) Entered as Reported by: ANGIE WALLIS on 03/08/21 1425 Ondansetron (Ondansetron Odt) 4 Mg Tab.rapdis, 4 MG SL Q4H PRN for NAUSEA/VOMITING Prescribed by: JANELL BAPTISTE on 03/28/231999 Phenazopyridine HCl (Pyridium) 100 Mg Tablet, 100 MG PO TID Prescribed by: JANELL BAPTISTE on 03/28/231999 Pnv 119/Iron Fum/Folic Acid ( 19 Tablet) 29 Mg Iron-1 Mg Tablet, 1 EACH PO, (Reported) Entered as Reported by: CHESTER GIL on 09/20/22 170 Review of Systems Review of Systems Constitutional: see HPI Past Eyppviq-Fkzitf-Jzkklg Hx Patient Social History Tobacco Use?: No Use of E-Cig and/or Vaping dev: No Substance use?: No Alcohol Use?: No Pt feels they are or have been: No Immunizations Up To Date Influenza Vaccine Up-to-Date: Yes; Up-to-Date First/Initial COVID19 Vaccinat: 2020 Second COVID19 Vaccination Jayesh: 2020 Third COVID19 Vaccination Date: December 2020 Seasonal Allergies Seasonal Allergies: No Past Medical History Surgery/Hospitalization HX: CHILDHOOD ASTHMA/ANEMIA Surgeries: Yes (BMT, WISDOM TEETH, BREAST BX) Breast, Ear Surgery, Gallbladder Respiratory: Yes (HX ASTHMA A CHILD) Currently Using CPAP: No Currently Using BIPAP: No Cardiac: No Neurological: Yes Headaches /Migraines Last Menstrual Period: Jul 10, 2023 Reproductive Disorders: No Female Reproductive Disorders: Denies Sexually Transmitted Disease: No HIV/AIDS: No Genitourinary: No Gastrointestinal: Yes (IBS?) Gastroesophageal Reflux, Chronic Constipation, Chronic Diarrhea, Irritable Bowel Musculoskeletal: No Endocrine: No HEENT: No Loss of Vision: Denies Hearing Impairment: Denies Cancer: No Psychosocial: No Integumentary: No Blood Disorders: Yes (ANEMIA) Adverse Reaction/Blood Tranf: No (N/A) Physical Exam Vital Signs - First Documented 07/16/23 21:12 Temp 38.7 Pulse 104 Resp 20 B/P (MAP) 144/72 (96) Pulse Ox 98 O2 Delivery Room Air Capillary Refill : Less Than 3 Seconds Height: 5'6.00" Weight: 179lbs. 0.0oz. 81.610112oy; 32.00 BMI Method:Stated General Appearance: WD/WN, no apparent distress HEENT: normal ENT inspection, pharynx normal Neck: non-tender, supple Respiratory: chest non-tender, lungs clear, normal breath sounds, no respiratory distress, no accessory muscle use Cardiovascular: no murmur, tachycardia Gastrointestinal: normal bowel sounds, non tender, soft Extremities: normal inspection, normal capillary refill Neurologic/Psychiatric: alert, oriented x 3 Skin: normal color, warm/dry Procedures/Interventions Suture Size: 5-0 Progress/Results/Core Measures Suspected Sepsis SIRS Temperature: Pulse: 104 Respiratory Rate: 20 Laboratory Tests 07/16/23 21:40: White Blood Count 5.9 Blood Pressure 144 /72 Mean: 96 Laboratory Tests 07/16/23 21:40: Creatinine 0.86, Platelet Count 239 Results/Orders Lab Results Laboratory Tests Test 07/16/23 21:40 Range/Units White Blood Count 5.9 4.3-11.0 10^3/uL Red Blood Count 5.29 H 3.80-5.11 10^6/uL Hemoglobin 13.1 11.5-16.0 g/dL Hematocrit 42 35-52 % Mean Corpuscular Volume 79 L 80-99 fL Mean Corpuscular Hemoglobin 25 25-34 pg Mean Corpuscular Hemoglobin Concent 32 32-36 g/dL Red Cell Distribution Width 21.2 H 10.0-14.5 % Platelet Count 239 130-400 10^3/uL Mean Platelet Volume 9.8 9.0-12.2 fL Immature Granulocyte % (Auto) 1 % Neutrophils (%) (Auto) 73 42-75 % Lymphocytes (%) (Auto) 17 12-44 % Monocytes (%) (Auto) 7 0-12 % Eosinophils (%) (Auto) 2 0-10 % Basophils (%) (Auto) 0 0-10 % Neutrophils # (Auto) 4.3 1.8-7.8 10^3/uL Lymphocytes # (Auto) 1.0 1.0-4.0 10^3/uL Monocytes # (Auto) 0.4 0.0-1.0 10^3/uL Eosinophils # (Auto) 0.1 0.0-0.3 10^3/uL Basophils # (Auto) 0.0 0.0-0.1 10^3/uL Immature Granulocyte # (Auto) 0.0 0.0-0.1 10^3/uL Sodium Level 134 L 135-145 MMOL/L Potassium Level 3.5 L 3.6-5.0 MMOL/L Chloride Level 101 98-107 MMOL/L Carbon Dioxide Level 22 21-32 MMOL/L Anion Gap 11 5-14 MMOL/L Blood Urea Nitrogen 11 7-18 MG/DL Creatinine 0.86 0.60-1.30 MG/DL Estimat Glomerular Filtration Rate 95 BUN/Creatinine Ratio 13 Glucose Level 96 70-105 MG/DL Calcium Level 9.4 8.5-10.1 MG/DL My Orders Orders - ROSALESSISSY DO Basic Metabolic Panel (07/16/23 21:32) Ed Iv/Invasive Line Start (07/16/23 21:32) Cbc And Automated Diff (07/16/23 21:32) Chest 1 View, Ap/Pa Only (07/16/23 21:32) Vital Signs/I&O 07/16/23 21:12 Temp 38.7 Pulse 104 Resp 20 B/P (MAP) 144/72 (96) Pulse Ox 98 O2 Delivery Room Air Capillary Refill : Less Than 3 Seconds Blood Pressure Mean: 96 Departure Impression Primary Impression: Upper respiratory infection Qualified Codes: J06.9 - Acute upper respiratory infection, unspecified Disposition: HOME, SELF-CARE Condition: Stable Departure-Patient Inst. Referrals: ONEL AU APRN (PCP/Family) Primary Care Physician Patient Instructions: Acute Bronchitis, Adult (DC) Add. Discharge Instructions: You likely have bronchitis, however your chest x-ray may show evidence for early bacterial pneumonia. With that have given you an antibiotic which you should take as prescribed until it is gone. Increase your fluids and rest. Use honey, 1 tablespoon every 2 hous as needed for cough. Return to the emergency department for any severe concerns. Follow with your primary doctor for any nonemergent needs. All discharge instructions reviewed with patient and/or family. Voiced understanding. Scripts Doxycycline Hyclate (Doxycycline Hyclate) 100 Mg Tablet 100 MG PO BID for 7 Days, #14 TAB Prov: SISSY CABA DO 07/16/23 SISSY CABA DO Jul 16, 2023 21:34
[2023-07-16 21:53] LABS: BASOPHILS % (AUTO) 0 % (0-10); EOSINOPHILS # (AUTO) 0.1 10^3/uL (0.0-0.3); EOSINOPHILS % (AUTO) 2 % (0-10); HEMATOCRIT 42 % (35-52); HEMOGLOBIN 13.1 g/dL (11.5-16.0); LYMPHOCYTES % (AUTO) 17 % (12-44); MEAN CORPUSCULAR HEMOGLOBIN 25 pg (25-34); MEAN CORPUSCULAR HGB CONC 32 g/dL (32-36); MEAN CORPUSCULAR VOLUME 79 fL (80-99); MEAN PLATELET VOLUME 9.8 fL (9.0-12.2); MONOCYTES # (AUTO) 0.4 10^3/uL (0.0-1.0); MONOCYTES % (AUTO) 7 % (0-12); NEUTROPHILS # (AUTO) 4.3 10^3/uL (1.8-7.8); NEUTROPHILS % (AUTO) 73 % (42-75); PLATELET COUNT 239 10^3/uL (130-400); WHITE BLOOD COUNT 5.9 10^3/uL (4.3-11.0)
[2023-07-16 22:03] LABS: POTASSIUM 3.5 MMOL/L (3.6-5.0)
[2023-07-16 22:04] LABS: CALCIUM 9.4 MG/DL (8.5-10.1)
[2023-07-16 22:09] LABS: CREATININE SERUM 0.86 MG/DL (0.60-1.30)
[2023-07-16] MEDS ORDERED: DOXY100T2 PO (22:27)
[2023-07-16 22:44] VITALS: BP 125/67
--- NOTE | 2023-07-16 22:47 | Diagnostic Imaging Report ---
INDICATION: 28-year-old female with fever, cough, and congestion. COMPARISONS: 06/03/2023 FINDINGS: Single view of the chest shows heart size to be upper limits of normal. There is some central venous congestion. There is some perihilar and bibasilar infiltrates. There is no effusion or pneumothorax. Soft tissues and bony thorax are unremarkable. IMPRESSION: 1. Mild central venous congestion accentuated by the portable technique. 2. Some perihilar and bibasilar infiltrates are seen but no confluent consolidations. Clinical correlation with short-term follow-up with departmental PA and lateral films would be of further value. Dictated by: Dictated on workstation # [id number]
== END 2023-07-16 22:44 | disposition home or self-care (01) ==
LOC: EDUNIT# 21:05 → ER 21:08
DX: J06.9 Acute upper respiratory infection, unspecified (principal)
CPT/HCPCS: 36415; 71045; 80048; 85025